=== PATIENT | male | born 1960 | race Caucasian/White ===

== ENCOUNTER 2016-04-24 07:12 | Inpatient (IN) | payer OTHER ==
[~2016-04-24] VITALS: Ht 177.8 cm; Wt 133.8 kg
[~2016-04-24 07:12] MED LIST: AMARYL4 MG PO; AMLODIPINE BESY10 MG PO; AMLODIPINE BESYL5 MG PO; ASPIRIN325 MG PO; AUGMENTIN875 MG PO; CALCIUM ACETAT667 MG PO; CARVEDILOL12.5 MG PO; CARVEDILOL25 MG PO; CEFDINIR300 MG PO; CLONAZEPAM0.5 MG PO; COREG25 M1 PO; DELTASONE20 M1 PO; DIALYVITE 3,001 EACH PO; EMLA 30 GM30 GM TP; FLEXERIL10 MG PO; GABAPENTIN100 MG PO; GABAPENTIN300 MG PO; GRALISE300 MG PO; HYCODAN SYRUP480 ML PO; HYDROCHLOR; INSULIN PUMP SCCONT; LANTUS 10100 UNITS/ SC; LASIX40 MG PO; LEVEMIR FL100 UNIT/1 SC; LEVEMIR FL100 UNITS/ SC; LEVEMIR100 UNIT/2 SC; LORTAB 5-325 M1 EACH PO; LOVASTATIN40 MG PO; LYRICA50 MG PO; MEDROL DOSEPAK4 MG PO; MEVACOR40 MG PO; NEURONTIN300 MG PO; NORCO 5/3251 TABLET PO; NORVASC5 MG PO; NOVOLOG PE100 UNITS/ SC; PREDNISONE20 MG PO; PRILOSEC OTC20 MG PO; PROAIR HFA8.5 GM IH; RENVELA800 MG PO; ROXICODONE5 MG PO; SENSIPAR30 MG PO; SENSIPAR60 MG PO; TRAMADOL HCL50 MG PO; TUMS500 MG PO; TYLENOL EXTRA500 MG PO; ULTRAM50 MG PO; VALSARTAN; VANCOMYCIN HCL1 GM IV; VIAGRA25 MG PO; VICODIN 5-3001 EACH PO; VITAMIN D10000 UNIT PO; ZOLOFT25 MG PO; ZOLOFT50 MG PO; [UNRECOGNIZED DRUG - OTHER] TP; quinapril; vytorin
[2016-04-24 08:17] LABS: HEMATOCRIT 32.6 % (38.0-50.0); MCHC 31.6 G/DL (30.0-36.0); MCV 91.8 FL (86-99); MEAN PLAT.VOLUME 9.9 uM^3 (9.0-12.4); PLATELET COUNT 536 K/uL (156-360); RBC DIS.WIDTH-CV 14.5 % (11.8-14.6); RBC DIS.WIDTH-SD 46.9 % (39-53); RED BLOOD COUNT 3.55 M/uL (4.00-5.50); WHITE BLOOD COUNT 21.8 K/uL (4.1-10.2)
[2016-04-24 08:18] LABS: BASOPHIL COUNT 0.1 K/uL (0-0.1); EOSINOPHIL (%) 1.7 % (0-5); EOSINOPHIL COUNT 0.4 K/uL (0-0.3); IMMATURE GRANULOCYTE (%) 0.4 % (0.0-0.7); IMMATURE GRANULOCYTE COUNT 0.8 K/uL; LYMPHOCYTE COUNT 1.4 K/uL (1.0-2.8); MONOCYTE COUNT 2.2 K/uL (0-0.8); NEUTROPHIL (%) 81.1 % (45-76); NEUTROPHIL COUNT 17.7 K/uL (1.8-6.4)
[2016-04-24 08:30] LABS: INTER. NORMALIZED RATIO 1.1; PROTHROMBIN TIME 11.3 (9.2-11.2); PTT 27.1 (25-32)
[2016-04-24 08:31] LABS: CHLORIDE 94 mEq/L (99-109); POTASSIUM 5.3 mEq/L (3.7-5.4); SODIUM 137 mEq/L (136-147)
[2016-04-24 08:33] LABS: GLUCOSE 143 mg/dL (70-99)
[2016-04-24 08:34] LABS: ANION GAP 17 MEQ/L (2-14)
[2016-04-24 08:35] LABS: TOTAL BILIRUBIN 0.3 mg/dL (0.0-1.0)
[2016-04-24 08:36] LABS: ALKALINE PHOSPHATASE 149 IU/L (3-129)
[2016-04-24 08:37] LABS: GFR ESTIMATE (CALCULATED) 6 mL/min/
[2016-04-24 08:38] LABS: UREA NITROGEN (BUN) 59 mg/dL (9-23)
[2016-04-24 08:40] LABS: LIPASE 94 U/L (1.0-51.0)
[2016-04-24 08:41] LABS: TROP-I INTERPRETATION NEGATIVE; TROPONIN-I 0.02 ng/mL (0.0-0.30)
[2016-04-24 08:59] LABS: HEMATOLOGY COMMENT 1 SMEAR COMPATIBLE; USER ID CCL
[2016-04-24] MEDS ORDERED: GABAPENTIN100 MG PO (11:23)
[2016-04-24] MEDS ORDERED: METHOCARBAMOL750 MG PO (11:26)
[2016-04-24] MEDS ORDERED: CALCITRIOL0.5 MCG PO (11:26)
[2016-04-24 17:51] VITALS: BP 185/83
[2016-04-24 18:02] LABS: POINT-OF-CARE METER ID UU14149396
[2016-04-24 19:50] VITALS: BP 175/73
[2016-04-24 21:51] LABS: POINT-OF-CARE METER ID UU14149398
[2016-04-25 00:20] VITALS: BP 130/60
[2016-04-25 01:46] LABS: POINT-OF-CARE METER ID UU14149398
[2016-04-25 03:55] VITALS: BP 184/77
[2016-04-25 05:52] LABS: POINT-OF-CARE METER ID UU14149398
[2016-04-25 06:47] LABS: BASOPHIL COUNT 0.1 K/uL (0-0.1); EOSINOPHIL (%) 3.6 % (0-5); EOSINOPHIL COUNT 0.4 K/uL (0-0.3); HEMATOCRIT 30.1 % (38.0-50.0); IMMATURE GRANULOCYTE (%) 0.3 % (0.0-0.7); LYMPHOCYTE COUNT 1.7 K/uL (1.0-2.8); MCHC 30.6 G/DL (30.0-36.0); MEAN PLAT.VOLUME 9.7 uM^3 (9.0-12.4); MONOCYTE (%) 17.8 % (3-12); MONOCYTE COUNT 2.1 K/uL (0-0.8); NEUTROPHIL (%) 63.3 % (45-76); NEUTROPHIL COUNT 7.3 K/uL (1.8-6.4); PLATELET COUNT 467 K/uL (156-360); RBC DIS.WIDTH-CV 14.9 % (11.8-14.6); RED BLOOD COUNT 3.17 M/uL (4.00-5.50); WHITE BLOOD COUNT 11.5 K/uL (4.1-10.2)
[2016-04-25 06:54] LABS: ANION GAP 13 MEQ/L (2-14); CHLORIDE 94 MEQ/L (99-109); SAMPLE HEMOLYSIS CHECK 0; SAMPLE ICTERIC CHECK 0; SAMPLE LIPEMIA CHECK 0; SODIUM 135 MEQ/L (136-147)
[2016-04-25 06:55] LABS: POTASSIUM 4.1 MEQ/L (3.7-5.4)
[2016-04-25 06:59] LABS: GFR ESTIMATE (CALCULATED) 8 mL/min/; GLUCOSE 210 mg/dL (70-99); UREA NITROGEN (BUN) 41 mg/dL (9-23)
[2016-04-25 07:03] LABS: TROP-I INTERPRETATION NEGATIVE; TROPONIN-I < 0.01 ng/mL (0.0-0.30)
[2016-04-25 13:00] VITALS: BP 178/78
[2016-04-25 13:27] LABS: POINT-OF-CARE METER ID UU14149396; POINT-OF-CARE USER ID 606021404
[2016-04-25 15:16] LABS: HEMATOCRIT 31.5 % (38.0-50.0); MCH 29.1 PG (29.0-34.0); MCHC 31.1 G/DL (30.0-36.0); MCV 93.5 FL (86-99); PLATELET COUNT 490 K/uL (156-360); RBC DIS.WIDTH-CV 14.7 % (11.8-14.6); RBC DIS.WIDTH-SD 50.2 % (39-53); RED BLOOD COUNT 3.37 M/uL (4.00-5.50); WHITE BLOOD COUNT 14.3 K/uL (4.1-10.2)
[2016-04-25 15:56] VITALS: BP 136/64
[2016-04-25 17:51] LABS: POINT-OF-CARE METER ID UU14149398; POINT-OF-CARE USER ID 606021404
[2016-04-25 19:40] VITALS: BP 118/58
[2016-04-25 21:21] LABS: POINT-OF-CARE METER ID UU14149398
[2016-04-25 23:25] VITALS: BP 114/55
[2016-04-26 02:32] LABS: POINT-OF-CARE METER ID UU14149398
[2016-04-26 03:35] VITALS: BP 108/52
[2016-04-26 06:01] LABS: HEMATOCRIT 31.9 % (38.0-50.0); MCH 28.1 PG (29.0-34.0); MCHC 30.1 G/DL (30.0-36.0); MCV 93.3 FL (86-99); MEAN PLAT.VOLUME 9.7 uM^3 (9.0-12.4); PLATELET COUNT 462 K/uL (156-360); RED BLOOD COUNT 3.42 M/uL (4.00-5.50); WHITE BLOOD COUNT 12.5 K/uL (4.1-10.2)
[2016-04-26 06:08] LABS: POINT-OF-CARE METER ID UU14149398
[2016-04-26 06:27] LABS: ALKALINE PHOSPHATASE 140 IU/L (3-129); ANION GAP 14 MEQ/L (2-14); CHLORIDE 94 MEQ/L (99-109); GFR ESTIMATE (CALCULATED) 9 mL/min/; GLUCOSE 135 mg/dL (70-99); POTASSIUM 4.5 MEQ/L (3.7-5.4); SAMPLE HEMOLYSIS CHECK 0; SAMPLE ICTERIC CHECK 0; SAMPLE LIPEMIA CHECK 0; SODIUM 137 MEQ/L (136-147); TOTAL BILIRUBIN 0.4 MG/DL (0.0-1.0); UREA NITROGEN (BUN) 34 mg/dL (9-23)
[2016-04-26 06:47] LABS: INFLUENZA A VIRAL ANTIGEN NEGATIVE; INFLUENZA B VIRAL ANTIGEN NEGATIVE
[2016-04-26 07:21] LABS: POINT-OF-CARE METER ID UU14149398
[2016-04-26 08:08] VITALS: BP 99/51
[2016-04-26 09:31] LABS: POINT-OF-CARE METER ID UU14149398
[2016-04-26 12:35] VITALS: BP 115/65
[2016-04-26 13:41] LABS: POINT-OF-CARE METER ID UU14149396
[2016-04-26 16:23] VITALS: BP 128/62
[2016-04-26 18:05] LABS: POINT-OF-CARE METER ID UU14149396
[2016-04-26 20:00] VITALS: BP 160/70
[2016-04-26 22:03] LABS: POINT-OF-CARE METER ID UU14149396
[2016-04-27] VITALS: BP 135/63
[2016-04-27 02:39] LABS: POINT-OF-CARE METER ID UU14149396
[2016-04-27 04:00] VITALS: BP 113/54
[2016-04-27 06:25] LABS: MCH 28.5 PG (29.0-34.0); MCHC 31.4 G/DL (30.0-36.0); MCV 90.9 FL (86-99); PLATELET COUNT 470 K/uL (156-360); RBC DIS.WIDTH-CV 14.6 % (11.8-14.6); RBC DIS.WIDTH-SD 47.2 % (39-53); RED BLOOD COUNT 3.19 M/uL (4.00-5.50); WHITE BLOOD COUNT 11.8 K/uL (4.1-10.2)
[2016-04-27 06:31] LABS: CHLORIDE 94 mEq/L (99-109); POTASSIUM 4.4 mEq/L (3.7-5.4); SODIUM 134 mEq/L (136-147)
[2016-04-27 06:33] LABS: GLUCOSE 139 mg/dL (70-99)
[2016-04-27 06:34] LABS: ANION GAP 18 MEQ/L (2-14)
[2016-04-27 06:35] LABS: TOTAL BILIRUBIN 0.3 mg/dL (0.0-1.0)
[2016-04-27 06:36] LABS: ALKALINE PHOSPHATASE 130 IU/L (3-129)
[2016-04-27 06:40] LABS: POINT-OF-CARE METER ID UU14149398
[2016-04-27 06:40] LABS: GFR ESTIMATE (CALCULATED) 6 mL/min/; UREA NITROGEN (BUN) 57 mg/dL (9-23)
[2016-04-27 13:17] VITALS: BP 167/72
[2016-04-27 13:26] LABS: POINT-OF-CARE METER ID UU14149398; POINT-OF-CARE USER ID 606021404
== END 2016-04-27 14:10 | disposition home or self-care (01) | DRG 640 ==
LOC: EME 07:12 → 4SOUTH 11:50 → EDOF 11:50 → 4SOUTH 17:37
PROVIDERS: Emergency Medicine; Internal Medicine
PROC: 5A1D60Z (ICD-10-PCS; principal; 2016-04-24)
DX: E87.70 Fluid overload, unspecified (principal); J81.0 Acute pulmonary edema; N18.6 End stage renal disease; I12.0 Hypertensive chronic kidney disease with stage 5 chronic kidney disease or end stage renal disease; Z68.41 Body mass index [BMI] 40.0-44.9, adult; E11.22 Type 2 diabetes mellitus with diabetic chronic kidney disease; G47.33 Obstructive sleep apnea (adult) (pediatric); E66.01 Morbid (severe) obesity due to excess calories; Z90.81 Acquired absence of spleen; E78.5 Hyperlipidemia, unspecified; Z96.41 Presence of insulin pump (external) (internal); E73.8 Other lactose intolerance; E83.51 Hypocalcemia; D63.1 Anemia in chronic kidney disease; R50.9 Fever, unspecified; Z99.2 Dependence on renal dialysis; Z79.4 Long term (current) use of insulin; Z90.09 Acquired absence of other part of head and neck; Z87.891 Personal history of nicotine dependence; Z83.3 Family history of diabetes mellitus
CPT/HCPCS: 71010; 71020; 80048; 80053; 81003; 82310; 82948; 83605; 83690; 83880; 84484; 85025; 85027; 85610; 85730; 87040; 87086; 87493; 87502; 93306; 94799; 99281; 99285; J1644; J1815; J2543; J3370; J7030

== ENCOUNTER 2016-05-04 06:25 | Inpatient (IN) | payer OTHER ==
[~2016-05-04] VITALS: Ht 177.8 cm; Wt 135.4 kg
[~2016-05-04 06:25] MED LIST changes: +CALCITRIOL0.5 MCG PO; +METHOCARBAMOL750 MG PO
[2016-05-04 07:54] LABS: HEMATOCRIT 28.1 % (38.0-50.0); MCH 27.8 PG (29.0-34.0); MCHC 30.6 G/DL (30.0-36.0); MCV 90.9 FL (86-99); MEAN PLAT.VOLUME 9.8 uM^3 (9.0-12.4); PLATELET COUNT 543 K/uL (156-360); RBC DIS.WIDTH-CV 14.5 % (11.8-14.6); RBC DIS.WIDTH-SD 46.2 % (39-53); RED BLOOD COUNT 3.09 M/uL (4.00-5.50)
[2016-05-04 07:58] LABS: WHITE BLOOD COUNT 16.1 K/uL (4.1-10.2)
[2016-05-04 08:09] LABS: CHLORIDE 91 mEq/L (99-109); POTASSIUM 4.5 mEq/L (3.7-5.4); SODIUM 133 mEq/L (136-147)
[2016-05-04 08:10] LABS: GLUCOSE 341 mg/dL (70-99)
[2016-05-04 08:12] LABS: ANION GAP 17 MEQ/L (2-14)
[2016-05-04 08:14] LABS: GFR ESTIMATE (CALCULATED) 5 mL/min/
[2016-05-04 08:15] LABS: UREA NITROGEN (BUN) 49 mg/dL (9-23)
[2016-05-04 08:16] LABS: TROP-I INTERPRETATION NEGATIVE; TROPONIN-I < 0.01 ng/mL (0.0-0.30)
[2016-05-04 10:36] VITALS: BP 136/69
[2016-05-04] MEDS ORDERED: CEFDINIR300 MG PO (11:51)
[2016-05-04 14:05] LABS: TROP-I INTERPRETATION NEGATIVE; TROPONIN-I < 0.01 ng/mL (0.0-0.30)
[2016-05-04 21:00] VITALS: BP 120/62
[2016-05-04 22:49] LABS: POINT-OF-CARE METER ID UU13113700
[2016-05-05 00:08] VITALS: BP 123/57
[2016-05-05 05:00] VITALS: BP 110/59
[2016-05-05 07:03] LABS: HEMATOCRIT 28.3 % (38.0-50.0); MCHC 30.4 G/DL (30.0-36.0); MCV 92.2 FL (86-99); MEAN PLAT.VOLUME 9.8 uM^3 (9.0-12.4); PLATELET COUNT 477 K/uL (156-360); RBC DIS.WIDTH-CV 15.1 % (11.8-14.6); RBC DIS.WIDTH-SD 50.9 % (39-53); RED BLOOD COUNT 3.07 M/uL (4.00-5.50); WHITE BLOOD COUNT 16.3 K/uL (4.1-10.2)
[2016-05-05 07:27] LABS: ALKALINE PHOSPHATASE 170 IU/L (3-129); ANION GAP 13 MEQ/L (2-14); CHLORIDE 96 MEQ/L (99-109); GFR ESTIMATE (CALCULATED) 8 mL/min/; GLUCOSE 99 mg/dL (70-99); SAMPLE HEMOLYSIS CHECK 0; SAMPLE ICTERIC CHECK 0; SAMPLE LIPEMIA CHECK 0; SODIUM 138 MEQ/L (136-147); TOTAL BILIRUBIN 0.4 MG/DL (0.0-1.0); UREA NITROGEN (BUN) 30 mg/dL (9-23)
[2016-05-05 08:45] VITALS: BP 138/65
[2016-05-05 08:55] LABS: POINT-OF-CARE METER ID UU13113831
[2016-05-05 12:35] VITALS: BP 112/57
[2016-05-05 12:41] LABS: POINT-OF-CARE METER ID UU13113831
[2016-05-05 17:45] LABS: POINT-OF-CARE METER ID UU13113831
[2016-05-05 18:36] VITALS: BP 108/55
[2016-05-05 22:10] LABS: POINT-OF-CARE METER ID UU13113717
[2016-05-05 23:45] VITALS: BP 91/52
[2016-05-06 04:03] VITALS: BP 92/53
[2016-05-06 08:09] LABS: HEMATOCRIT 27.4 % (38.0-50.0); MCH 27.7 PG (29.0-34.0); MCHC 30.3 G/DL (30.0-36.0); MCV 91.3 FL (86-99); MEAN PLAT.VOLUME 9.8 uM^3 (9.0-12.4); NRBC (%) 0.9 /100 WBC (0-0); PLATELET COUNT 487 K/uL (156-360); RBC DIS.WIDTH-CV 15.1 % (11.8-14.6); RBC DIS.WIDTH-SD 50.2 % (39-53); WHITE BLOOD COUNT 17.2 K/uL (4.1-10.2)
[2016-05-06 08:20] LABS: BASOPHIL COUNT 0.1 K/uL (0-0.1); EOSINOPHIL (%) 3.9 % (0-5); EOSINOPHIL COUNT 0.7 K/uL (0-0.3); IMMATURE GRANULOCYTE (%) 3.8 % (0.0-0.7); IMMATURE GRANULOCYTE COUNT 0.7 K/uL; LYMPHOCYTE COUNT 1.8 K/uL (1.0-2.8); MONOCYTE (%) 17.2 % (3-12); NEUTROPHIL (%) 63.9 % (45-76)
[2016-05-06 08:38] LABS: ANION GAP 15 MEQ/L (2-14); CHLORIDE 91 MEQ/L (99-109); GFR ESTIMATE (CALCULATED) 6 mL/min/; GLUCOSE 250 mg/dL (70-99); POTASSIUM 4.3 MEQ/L (3.7-5.4); SAMPLE HEMOLYSIS CHECK 0; SAMPLE ICTERIC CHECK 0; SAMPLE LIPEMIA CHECK 0; SODIUM 131 MEQ/L (136-147); UREA NITROGEN (BUN) 49 mg/dL (9-23)
[2016-05-06 08:39] LABS: HEMATOLOGY COMMENT 1 SMEAR COMPATIBLE; PLAT.SUFFICIENCY INCREASED
[2016-05-06 10:53] LABS: IRON 17 MCG/DL (35-150)
[2016-05-06 17:15] LABS: POINT-OF-CARE METER ID UU14149397
[2016-05-06 17:16] VITALS: BP 104/59
[2016-05-06 19:35] VITALS: BP 120/56
[2016-05-07] VITALS (7 sets, daily range): BP systolic 121–129; BP diastolic 59–66
[2016-05-07 13:46] LABS: GLUCOSE 632 mg/dL (70-99)
[2016-05-07 18:09] LABS: ANION GAP 18 MEQ/L (2-14); CHLORIDE 86 MEQ/L (99-109); GFR ESTIMATE (CALCULATED) 7 mL/min/; GLUCOSE 494 mg/dL (70-99); POTASSIUM 5.4 MEQ/L (3.7-5.4); SAMPLE HEMOLYSIS CHECK 0; SAMPLE ICTERIC CHECK 0; SAMPLE LIPEMIA CHECK 0; SODIUM 126 MEQ/L (136-147); UREA NITROGEN (BUN) 56 mg/dL (9-23)
[2016-05-07 19:19] LABS: POINT-OF-CARE METER ID UU14149397
[2016-05-08 03:12] LABS: POINT-OF-CARE METER ID UU14149397
[2016-05-08 04:08] VITALS: BP 116/58
[2016-05-08 06:01] LABS: MEAN PLAT.VOLUME 10.2 uM^3 (9.0-12.4); PLATELET COUNT 519 K/uL (156-360)
[2016-05-08 06:26] LABS: ALKALINE PHOSPHATASE 193 IU/L (3-129); ANION GAP 23 MEQ/L (2-14); CHLORIDE 87 MEQ/L (99-109); GFR ESTIMATE (CALCULATED) 6 mL/min/; GLUCOSE 288 mg/dL (70-99); POTASSIUM 5.6 MEQ/L (3.7-5.4); SAMPLE HEMOLYSIS CHECK 0; SAMPLE ICTERIC CHECK 0; SAMPLE LIPEMIA CHECK 0; SODIUM 132 MEQ/L (136-147); TOTAL BILIRUBIN 0.3 MG/DL (0.0-1.0); UREA NITROGEN (BUN) 69 mg/dL (9-23)
[2016-05-08 06:32] LABS: HEMATOCRIT 28.1 % (38.0-50.0); MCH 28.4 PG (29.0-34.0); MCHC 31.7 G/DL (30.0-36.0); MCV 89.8 FL (86-99); RBC DIS.WIDTH-CV 15.1 % (11.8-14.6); RBC DIS.WIDTH-SD 49.1 % (39-53); RED BLOOD COUNT 3.13 M/uL (4.00-5.50)
[2016-05-08 06:36] LABS: WHITE BLOOD COUNT 33.9 K/uL (4.1-10.2)
[2016-05-08 06:49] LABS: POINT-OF-CARE METER ID UU13113717
[2016-05-08 07:38] VITALS: BP 128/68
[2016-05-08 09:43] VITALS: BP 128/68
[2016-05-08 11:08] VITALS: BP 110/60
[2016-05-08 16:03] VITALS: BP 127/69
[2016-05-08 23:58] VITALS: BP 120/63
[2016-05-09] VITALS (7 sets, daily range): BP systolic 60–147; BP diastolic 42–76
[2016-05-09 03:19] LABS: POINT-OF-CARE METER ID UU14149397
[2016-05-09 06:46] LABS: POINT-OF-CARE METER ID UU13113717
[2016-05-09 08:07] LABS: MEAN PLAT.VOLUME 9.9 uM^3 (9.0-12.4); PLATELET COUNT 535 K/uL (156-360)
[2016-05-09 08:11] LABS: EOSINOPHIL (%) 0 % (0-5); HEMATOCRIT 28.5 % (38.0-50.0); IMMATURE GRANULOCYTE (%) 3.4 % (0.0-0.7); LYMPHOCYTE COUNT 2.7 K/uL (1.0-2.8); MCH 27.5 PG (29.0-34.0); MCHC 31.6 G/DL (30.0-36.0); MCV 87.2 FL (86-99); MONOCYTE (%) 10.4 % (3-12); NEUTROPHIL (%) 76.9 % (45-76); NEUTROPHIL COUNT 22.2 K/uL (1.8-6.4); RBC DIS.WIDTH-SD 47.3 % (39-53); RED BLOOD COUNT 3.27 M/uL (4.00-5.50); WHITE BLOOD COUNT 28.9 K/uL (4.1-10.2)
[2016-05-09 08:42] LABS: ALKALINE PHOSPHATASE 165 IU/L (3-129); ANION GAP 20 MEQ/L (2-14); CHLORIDE 87 MEQ/L (99-109); GLUCOSE 277 mg/dL (70-99); POTASSIUM 4.6 MEQ/L (3.7-5.4); SAMPLE HEMOLYSIS CHECK 0; SAMPLE ICTERIC CHECK 0; SAMPLE LIPEMIA CHECK 0; SODIUM 128 MEQ/L (136-147); UREA NITROGEN (BUN) 92 mg/dL (9-23)
[2016-05-09 08:43] LABS: GFR ESTIMATE (CALCULATED) 5 mL/min/; TOTAL BILIRUBIN 0.4 MG/DL (0.0-1.0)
[2016-05-09 08:51] LABS: ABS NEUTROPHIL COUNT 23.43; ANISOCYTOSIS OCC; MYELOCYTES 0.5 %; NUCLEATED RBC'S 2.5; PLAT.SUFFICIENCY INCREASED; USER ID SDF
[2016-05-09 10:25] LABS: POINT-OF-CARE METER ID UU13113717
[2016-05-09 10:31] LABS: POINT-OF-CARE METER ID UU13113717
[2016-05-09 13:33] LABS: POINT-OF-CARE METER ID UU13113717
[2016-05-09 16:26] LABS: POINT-OF-CARE METER ID UU14149397
[2016-05-09 17:16] LABS: ANION GAP 17 MEQ/L (2-14); CHLORIDE 94 MEQ/L (99-109); POTASSIUM 4.4 MEQ/L (3.7-5.4); SAMPLE HEMOLYSIS CHECK 0; SAMPLE ICTERIC CHECK 0; SAMPLE LIPEMIA CHECK 0
[2016-05-09 17:27] LABS: GFR ESTIMATE (CALCULATED) 9 mL/min/; GLUCOSE 128 mg/dL (70-99); UREA NITROGEN (BUN) 39 mg/dL (9-23)
[2016-05-09 17:28] LABS: SODIUM 136 MEQ/L (136-147)
[2016-05-09 18:15] LABS: TROP-I INTERPRETATION NEGATIVE; TROPONIN-I < 0.01 ng/mL (0.0-0.30)
[2016-05-10] VITALS (7 sets, daily range): BP systolic 90–137; BP diastolic 54–73
[2016-05-10 03:05] LABS: POINT-OF-CARE METER ID UU14149397
[2016-05-10 06:54] LABS: HEMATOCRIT 29.5 % (38.0-50.0); MCH 27.2 PG (29.0-34.0); MCHC 30.5 G/DL (30.0-36.0); MCV 89.1 FL (86-99); MEAN PLAT.VOLUME 10.2 uM^3 (9.0-12.4); PLATELET COUNT 511 K/uL (156-360); RBC DIS.WIDTH-CV 15.3 % (11.8-14.6); RBC DIS.WIDTH-SD 49.7 % (39-53); RED BLOOD COUNT 3.31 M/uL (4.00-5.50); WHITE BLOOD COUNT 28.1 K/uL (4.1-10.2)
[2016-05-10 08:38] LABS: INTERNAL CONTROL VALID? YES
[2016-05-10 08:45] LABS: ALKALINE PHOSPHATASE 162 IU/L (3-129); ANION GAP 16 MEQ/L (2-14); CHLORIDE 92 MEQ/L (99-109); POTASSIUM 4.7 MEQ/L (3.7-5.4); SAMPLE HEMOLYSIS CHECK 0; SAMPLE ICTERIC CHECK 0; SAMPLE LIPEMIA CHECK 0; SODIUM 132 MEQ/L (136-147)
[2016-05-10 08:49] LABS: GFR ESTIMATE (CALCULATED) 7 mL/min/; GLUCOSE 218 mg/dL (70-99); TOTAL BILIRUBIN 0.5 MG/DL (0.0-1.0); UREA NITROGEN (BUN) 61 mg/dL (9-23)
[2016-05-10 11:47] LABS: POINT-OF-CARE METER ID UU14149397
[2016-05-10 16:22] LABS: POINT-OF-CARE METER ID UU14149397
[2016-05-10 19:49] LABS: GLUCOSE 536 mg/dL (70-99)
[2016-05-11 03:42] VITALS: BP 98/56
[2016-05-11 06:11] LABS: HEMATOCRIT 26.1 % (38.0-50.0); MEAN PLAT.VOLUME 10.2 uM^3 (9.0-12.4); PLATELET COUNT 487 K/uL (156-360); RBC DIS.WIDTH-CV 15.4 % (11.8-14.6); RBC DIS.WIDTH-SD 48.9 % (39-53); WHITE BLOOD COUNT 23.4 K/uL (4.1-10.2)
[2016-05-11 06:23] LABS: POINT-OF-CARE METER ID UU14149397
[2016-05-11 06:47] LABS: ALKALINE PHOSPHATASE 147 IU/L (3-129); ANION GAP 19 MEQ/L (2-14); CHLORIDE 88 MEQ/L (99-109); GLUCOSE 318 mg/dL (70-99); POTASSIUM 4.6 MEQ/L (3.7-5.4); SAMPLE HEMOLYSIS CHECK 0; SAMPLE ICTERIC CHECK 0; SAMPLE LIPEMIA CHECK 0; SODIUM 127 MEQ/L (136-147); TOTAL BILIRUBIN 0.4 MG/DL (0.0-1.0); UREA NITROGEN (BUN) 86 mg/dL (9-23)
[2016-05-11 06:57] LABS: GFR ESTIMATE (CALCULATED) 5 mL/min/
[2016-05-11 08:08] VITALS: BP 102/60
[2016-05-11 09:13] LABS: POINT-OF-CARE METER ID UU13113681
[2016-05-11 09:18] LABS: MEAN PLAT.VOLUME 10.3 uM^3 (9.0-12.4)
[2016-05-11 09:51] LABS: POINT-OF-CARE METER ID UU13113717
[2016-05-11 10:04] LABS: POINT-OF-CARE METER ID UU13113717
[2016-05-11 10:09] LABS: ABS NEUTROPHIL COUNT 17.27; ANISOCYTOSIS 2+; BAND NEUTROPHILS 5.5 % (0-8.0); HEMATOCRIT 25.7 % (38.0-50.0); LYMPHOCYTES 6.5 % (15.0-45.0); MACROCYTES OCC; MCHC 32.3 G/DL (30.0-36.0); MCV 86.8 FL (86-99); METAMYELOCYTES 3.5 %; MYELOCYTES 0.5 %; PLAT.SUFFICIENCY INCREASED; PLATELET CLUMPS PRESENT; POLYCHROMASIA OCC; RBC DIS.WIDTH-CV 15.5 % (11.8-14.6); RBC DIS.WIDTH-SD 49.8 % (39-53); RED BLOOD COUNT 2.96 M/uL (4.00-5.50); USER ID STC
[2016-05-11 10:12] LABS: DELETE MACHINE DIFF? YES
[2016-05-11 10:15] LABS: POINT-OF-CARE METER ID UU13113717
[2016-05-11 16:22] VITALS: BP 108/52
[2016-05-11 16:53] LABS: POINT-OF-CARE METER ID UU13113717
[2016-05-12] MEDS ORDERED: RENVELA800 MG PO (13:57)
== END 2016-05-11 18:14 | disposition home health service (06) | DRG 314 ==
LOC: EME 06:25 → EDOF 08:41 → 5WEST 08:41 → EDOF 08:45 → 5WEST 10:28 → 3EAST 05-05 12:05 → 5WEST 05-05 12:05 → 3EAST 05-05 18:13
PROVIDERS: Hospitalist; Internal Medicine; Internal Medicine Endocrinology, Diabetes & Metabolism; Internal Medicine Nephrology
DX: I31.3 Pericardial effusion (noninflammatory) (principal); I13.2 Hypertensive heart and chronic kidney disease with heart failure and with stage 5 chronic kidney disease, or end stage renal disease; N18.6 End stage renal disease; I50.9 Heart failure, unspecified; J98.11 Atelectasis; I24.1 Dressler's syndrome; E87.1 Hypo-osmolality and hyponatremia; E86.1 Hypovolemia; E83.51 Hypocalcemia; Z99.2 Dependence on renal dialysis; R50.9 Fever, unspecified; D63.1 Anemia in chronic kidney disease; E11.65 Type 2 diabetes mellitus with hyperglycemia; E11.40 Type 2 diabetes mellitus with diabetic neuropathy, unspecified; G47.33 Obstructive sleep apnea (adult) (pediatric); G89.29 Other chronic pain; D72.829 Elevated white blood cell count, unspecified; E78.5 Hyperlipidemia, unspecified; E66.9 Obesity, unspecified; Z90.81 Acquired absence of spleen; Z86.718 Personal history of other venous thrombosis and embolism; Z87.891 Personal history of nicotine dependence; Z96.41 Presence of insulin pump (external) (internal)
CPT/HCPCS: 71020; 71250; 78582; 80048; 80048 91; 80053; 80069; 81003; 82272; 82948; 83540; 84100; 84443; 84466; 84484; 84999; 85025; 85027; 87040; 93005; 93308; 94640; 94799; 99202; 99281; 99284; A9540; A9567; G0378; J0610; J0696; J0881; J1644; J1815; J2270; J2405; J2930; J7030; J7050; J7512

== ENCOUNTER 2016-05-12 07:56 | Inpatient (IN) | payer OTHER ==
[~2016-05-12] VITALS: Ht 177.8 cm; Wt 135.4 kg
[2016-05-12 08:27] LABS: HEMATOCRIT 26.4 % (38.0-50.0); MCH 27.8 PG (29.0-34.0); MCHC 31.8 G/DL (30.0-36.0); MCV 87.4 FL (86-99); RBC DIS.WIDTH-CV 14.9 % (11.8-14.6); RBC DIS.WIDTH-SD 45.8 % (39-53); RED BLOOD COUNT 3.02 M/uL (4.00-5.50); WHITE BLOOD COUNT 19.5 K/uL (4.1-10.2)
[2016-05-12 08:37] LABS: INTER. NORMALIZED RATIO 1.3; PROTHROMBIN TIME 12.8 (9.2-11.2); PTT 28.9 (25-32)
[2016-05-12 08:39] LABS: CHLORIDE 96 mEq/L (99-109); POTASSIUM 4.6 mEq/L (3.7-5.4); SODIUM 134 mEq/L (136-147)
[2016-05-12 08:40] LABS: GLUCOSE 258 mg/dL (70-99)
[2016-05-12 08:42] LABS: ANION GAP 18 MEQ/L (2-14)
[2016-05-12 08:44] LABS: GFR ESTIMATE (CALCULATED) 7 mL/min/
[2016-05-12 08:45] LABS: UREA NITROGEN (BUN) 70 mg/dL (9-23)
[2016-05-12 08:48] LABS: TROP-I INTERPRETATION NEGATIVE; TROPONIN-I < 0.01 ng/mL (0.0-0.30)
[2016-05-12 09:31] LABS: ABS NEUTROPHIL COUNT 13.47; ANISOCYTOSIS 1+; BASOPHIL COUNT 0.1 K/uL (0-0.1); EOSINOPHIL (%) 0.6 % (0-5); EOSINOPHIL COUNT 0.1 K/uL (0-0.3); IMMATURE GRANULOCYTE (%) 5.2 % (0.0-0.7); IMMATURE GRANULOCYTE COUNT 10.2 K/uL; LYMPHOCYTE COUNT 2.6 K/uL (1.0-2.8); MACROCYTES 1+; MONOCYTE (%) 15.9 % (3-12); MONOCYTE COUNT 3.1 K/uL (0-0.8); NEUTROPHIL (%) 64.5 % (45-76); NEUTROPHIL COUNT 12.6 K/uL (1.8-6.4); PLAT.SUFFICIENCY INCREASED; PLATELET CLUMPS PRESENT - PLATELET COUNT APPEARS INCREASED; POLYCHROMASIA 1+
[2016-05-12 12:49] LABS: ERTH.SED.RATE 59 MM/HR (0-20)
[2016-05-12] MEDS ORDERED: RENVELA800 MG PO (13:57)
[2016-05-12 15:44] LABS: POINT-OF-CARE METER ID UU14100415
[2016-05-12 19:36] VITALS: BP 123/63
[2016-05-12 23:04] LABS: GLUCOSE 472 mg/dL (70-99)
[2016-05-13 00:12] VITALS: BP 116/68
[2016-05-13 03:25] VITALS: BP 155/94
[2016-05-13 08:01] LABS: HEMATOCRIT 28.8 % (38.0-50.0); MCH 27.7 PG (29.0-34.0); MCHC 31.6 G/DL (30.0-36.0); MCV 87.5 FL (86-99); MEAN PLAT.VOLUME 10.3 uM^3 (9.0-12.4); PLATELET COUNT 506 K/uL (156-360); RBC DIS.WIDTH-CV 15.5 % (11.8-14.6); RBC DIS.WIDTH-SD 49.6 % (39-53); RED BLOOD COUNT 3.29 M/uL (4.00-5.50); WHITE BLOOD COUNT 26.7 K/uL (4.1-10.2)
[2016-05-13 08:14] LABS: TROP-I INTERPRETATION NEGATIVE; TROPONIN-I < 0.01 ng/mL (0.0-0.30)
[2016-05-13 08:18] LABS: ALKALINE PHOSPHATASE 250 IU/L (3-129); ANION GAP 21 MEQ/L (2-14); CHLORIDE 89 MEQ/L (99-109); GFR ESTIMATE (CALCULATED) 6 mL/min/; GLUCOSE 509 mg/dL (70-99); POTASSIUM 5.8 MEQ/L (3.7-5.4); SAMPLE HEMOLYSIS CHECK 0; SAMPLE ICTERIC CHECK 0; SAMPLE LIPEMIA CHECK 0; SODIUM 127 MEQ/L (136-147); TOTAL BILIRUBIN 0.5 MG/DL (0.0-1.0); UREA NITROGEN (BUN) 95 mg/dL (9-23)
[2016-05-13 13:15] VITALS: BP 138/70
[2016-05-13 18:21] VITALS: BP 150/67
[2016-05-13 19:29] VITALS: BP 143/74
[2016-05-13 19:42] VITALS: BP 143/74
[2016-05-14] VITALS (8 sets, daily range): BP systolic 124–144; BP diastolic 57–97
[2016-05-14 07:03] LABS: HEMATOCRIT 29.1 % (38.0-50.0); MCH 27.2 PG (29.0-34.0); MCHC 31.3 G/DL (30.0-36.0); MCV 86.9 FL (86-99); MEAN PLAT.VOLUME 10.6 uM^3 (9.0-12.4); PLATELET COUNT 567 K/uL (156-360); RBC DIS.WIDTH-CV 15.2 % (11.8-14.6); RBC DIS.WIDTH-SD 47.9 % (39-53); RED BLOOD COUNT 3.35 M/uL (4.00-5.50); WHITE BLOOD COUNT 22.7 K/uL (4.1-10.2)
[2016-05-14 07:20] LABS: ALKALINE PHOSPHATASE 208 IU/L (3-129); ANION GAP 15 MEQ/L (2-14); CHLORIDE 93 MEQ/L (99-109); GLUCOSE 389 mg/dL (70-99); SAMPLE HEMOLYSIS CHECK 0; SAMPLE ICTERIC CHECK 0; SAMPLE LIPEMIA CHECK 0; SODIUM 133 MEQ/L (136-147); TOTAL BILIRUBIN 0.4 MG/DL (0.0-1.0); UREA NITROGEN (BUN) 66 mg/dL (9-23)
[2016-05-14 07:23] LABS: GFR ESTIMATE (CALCULATED) 9 mL/min/; POTASSIUM 6.3 MEQ/L (3.7-5.4)
[2016-05-14 13:59] LABS: ANION GAP 19 MEQ/L (2-14); CHLORIDE 90 MEQ/L (99-109); SAMPLE HEMOLYSIS CHECK 0; SAMPLE ICTERIC CHECK 0; SAMPLE LIPEMIA CHECK 0; SODIUM 130 MEQ/L (136-147)
[2016-05-14 14:06] LABS: GFR ESTIMATE (CALCULATED) 8 mL/min/; UREA NITROGEN (BUN) 75 mg/dL (9-23)
[2016-05-14 14:07] LABS: GLUCOSE 475 mg/dL (70-99); POTASSIUM 4.8 MEQ/L (3.7-5.4)
[2016-05-15 05:00] VITALS: BP 133/66
[2016-05-15 07:02] LABS: HEMATOCRIT 28.1 % (38.0-50.0); MCH 27.4 PG (29.0-34.0); MCV 85.7 FL (86-99); MEAN PLAT.VOLUME 10.5 uM^3 (9.0-12.4); PLATELET COUNT 570 K/uL (156-360); RBC DIS.WIDTH-CV 15.3 % (11.8-14.6); RBC DIS.WIDTH-SD 47.7 % (39-53); RED BLOOD COUNT 3.28 M/uL (4.00-5.50); WHITE BLOOD COUNT 21.3 K/uL (4.1-10.2)
[2016-05-15 07:30] VITALS: BP 128/58
[2016-05-15 07:37] LABS: ALKALINE PHOSPHATASE 169 IU/L (3-129); ANION GAP 17 MEQ/L (2-14); CHLORIDE 90 MEQ/L (99-109); SAMPLE HEMOLYSIS CHECK 0; SAMPLE ICTERIC CHECK 0; SAMPLE LIPEMIA CHECK 0; SODIUM 130 MEQ/L (136-147); TOTAL BILIRUBIN 0.4 MG/DL (0.0-1.0); UREA NITROGEN (BUN) 98 mg/dL (9-23)
[2016-05-15 07:38] LABS: GFR ESTIMATE (CALCULATED) 7 mL/min/; GLUCOSE 421 mg/dL (70-99)
[2016-05-15 10:10] LABS: POINT-OF-CARE METER ID UU13113698
[2016-05-15 10:10] LABS: POINT-OF-CARE METER ID UU13113698
[2016-05-15 10:10] LABS: POINT-OF-CARE METER ID UU13113698
[2016-05-15 10:16] LABS: POINT-OF-CARE METER ID UU13113698
[2016-05-15 11:30] VITALS: BP 143/73
[2016-05-15 16:06] LABS: INTER. NORMALIZED RATIO 1.2; PROTHROMBIN TIME 12.2 (9.2-11.2)
[2016-05-15 19:45] VITALS: BP 144/69
[2016-05-15 23:06] VITALS: BP 147/73
[2016-05-16 04:35] VITALS: BP 132/73
[2016-05-16 08:02] LABS: POINT-OF-CARE METER ID UU14174216; POINT-OF-CARE USER ID ENVKC36
[2016-05-16 08:09] VITALS: BP 126/65
[2016-05-16 09:30] LABS: POINT-OF-CARE METER ID UU13113698
[2016-05-16 09:32] LABS: POINT-OF-CARE METER ID UU13113698
[2016-05-16 10:28] LABS: MEAN PLAT.VOLUME 10.5 uM^3 (9.0-12.4); PLATELET COUNT 647 K/uL (156-360)
[2016-05-16 10:35] LABS: INTER. NORMALIZED RATIO 1.3; PROTHROMBIN TIME 13.8 (9.2-11.2)
[2016-05-16 11:25] LABS: HEMATOCRIT 29.8 % (38.0-50.0); MCH 27.2 PG (29.0-34.0); MCHC 32.2 G/DL (30.0-36.0); MCV 84.4 FL (86-99); RBC DIS.WIDTH-CV 15.1 % (11.8-14.6); RBC DIS.WIDTH-SD 46.3 % (39-53); RED BLOOD COUNT 3.53 M/uL (4.00-5.50); WHITE BLOOD COUNT 21.8 K/uL (4.1-10.2)
[2016-05-16 11:32] LABS: ALKALINE PHOSPHATASE 148 IU/L (3-129); ANION GAP 19 MEQ/L (2-14); CHLORIDE 90 MEQ/L (99-109); GFR ESTIMATE (CALCULATED) 6 mL/min/; GLUCOSE 320 mg/dL (70-99); POTASSIUM 5.9 MEQ/L (3.7-5.4); SAMPLE HEMOLYSIS CHECK 0; SAMPLE ICTERIC CHECK 0; SAMPLE LIPEMIA CHECK 0; SODIUM 128 MEQ/L (136-147); TOTAL BILIRUBIN 0.4 MG/DL (0.0-1.0)
[2016-05-16 11:34] LABS: UREA NITROGEN (BUN) 122 mg/dL (9-23)
[2016-05-16 12:50] LABS: ANISOCYTOSIS 1+; BURR CELLS 1+; EOSINOPHIL ABS CT 0.22; MACROCYTES OCC; PLAT.SUFFICIENCY INCREASED; USER ID CCL
[2016-05-16 14:18] LABS: POINT-OF-CARE METER ID UU13113681; POINT-OF-CARE USER ID DROKMM72
[2016-05-16 14:39] LABS: DELETE MACHINE DIFF? YES
[2016-05-16 16:07] VITALS: BP 146/57
[2016-05-16 16:25] LABS: POINT-OF-CARE METER ID UU14174216; POINT-OF-CARE USER ID ENVKC36
[2016-05-16 19:36] VITALS: BP 149/70
[2016-05-16 23:00] VITALS: BP 152/81
[2016-05-17 04:45] VITALS: BP 140/48
[2016-05-17 07:02] LABS: HEMATOCRIT 31.5 % (38.0-50.0); MCH 26.7 PG (29.0-34.0); MCHC 31.1 G/DL (30.0-36.0); MCV 85.8 FL (86-99); MEAN PLAT.VOLUME 10.2 uM^3 (9.0-12.4); PLATELET COUNT 596 K/uL (156-360); RBC DIS.WIDTH-CV 15.2 % (11.8-14.6); RBC DIS.WIDTH-SD 47.4 % (39-53); RED BLOOD COUNT 3.67 M/uL (4.00-5.50); WHITE BLOOD COUNT 20.2 K/uL (4.1-10.2)
[2016-05-17 07:14] LABS: INTER. NORMALIZED RATIO 1.2; PROTHROMBIN TIME 12.6 (9.2-11.2)
[2016-05-17 07:34] LABS: ALKALINE PHOSPHATASE 152 IU/L (3-129); ANION GAP 14 MEQ/L (2-14); CHLORIDE 92 MEQ/L (99-109); GFR ESTIMATE (CALCULATED) 8 mL/min/; GLUCOSE 395 mg/dL (70-99); POTASSIUM 5.4 MEQ/L (3.7-5.4); SAMPLE HEMOLYSIS CHECK 0; SAMPLE ICTERIC CHECK 0; SAMPLE LIPEMIA CHECK 0; SODIUM 131 MEQ/L (136-147); TOTAL BILIRUBIN 0.4 MG/DL (0.0-1.0); UREA NITROGEN (BUN) 84 mg/dL (9-23)
[2016-05-17 07:41] VITALS: BP 145/74
[2016-05-17] MEDS ORDERED: PREDNISONE10 MG PO (08:40)
[2016-05-17] MEDS ORDERED: COLCRYS0.6 MG PO (08:42)
[2016-05-17 10:54] LABS: POINT-OF-CARE METER ID UU14174216
== END 2016-05-17 10:09 | disposition home or self-care (01) | DRG 252 ==
LOC: EME 07:56 → EDOF 11:45 → 4EAST 11:45 → EDOF 11:45 → 4EAST 19:00
PROVIDERS: Emergency Medicine; Internal Medicine; Internal Medicine Nephrology
PROC: 5A1D60Z (ICD-10-PCS; principal; 2016-05-13)
PROC: B31J1ZZ Fluoroscopy of Left Upper Extremity Arteries using Low Osmolar Contrast (ICD-10-PCS; 2016-05-16)
PROC: 037Y3ZZ Dilation of Upper Artery, Percutaneous Approach (ICD-10-PCS; 2016-05-16)
DX: I30.9 Acute pericarditis, unspecified (principal); N18.6 End stage renal disease; I12.0 Hypertensive chronic kidney disease with stage 5 chronic kidney disease or end stage renal disease; T82.858A Stenosis of other vascular prosthetic devices, implants and grafts, initial encounter; I48.1 Persistent atrial fibrillation; Z68.41 Body mass index [BMI] 40.0-44.9, adult; E87.5 Hyperkalemia; R06.02 Shortness of breath; E83.51 Hypocalcemia; G47.33 Obstructive sleep apnea (adult) (pediatric); E11.65 Type 2 diabetes mellitus with hyperglycemia; E11.22 Type 2 diabetes mellitus with diabetic chronic kidney disease; E78.5 Hyperlipidemia, unspecified; I27.2 Other secondary pulmonary hypertension; G40.909 Epilepsy, unspecified, not intractable, without status epilepticus; F32.9 Major depressive disorder, single episode, unspecified; E66.9 Obesity, unspecified; Z99.2 Dependence on renal dialysis; Z96.41 Presence of insulin pump (external) (internal); Z79.4 Long term (current) use of insulin; Z87.891 Personal history of nicotine dependence; Z86.718 Personal history of other venous thrombosis and embolism; Z90.81 Acquired absence of spleen; I25.2 Old myocardial infarction
CPT/HCPCS: 71010; 71250; 80048; 80048 91; 80053; 82948; 84484; 84999; 85025; 85027; 85610; 85651; 85730; 93005; 93308; 93990; 94799; 99281; 99285; C1725; C1769; C1894; J0636; J1644; J1815; J1885; J2250; J2270; J2920; J2930; J3010; J7050; J7512

== ENCOUNTER 2016-05-18 22:20 | Inpatient (IN) | payer OTHER ==
[~2016-05-18] VITALS: Ht 177.8 cm; Wt 134.4 kg
[~2016-05-18 22:20] MED LIST changes: +COLCRYS0.6 MG PO; +PREDNISONE10 MG PO
[2016-05-18 22:44] VITALS: BP 171/138
[2016-05-18 22:48] LABS: HEMATOCRIT 29.8 % (38.0-50.0); MCH 27.5 PG (29.0-34.0); MCHC 32.2 G/DL (30.0-36.0); MCV 85.4 FL (86-99); MEAN PLAT.VOLUME 10.3 uM^3 (9.0-12.4); PLATELET COUNT 589 K/uL (156-360); RBC DIS.WIDTH-CV 15.3 % (11.8-14.6); RBC DIS.WIDTH-SD 46.3 % (39-53); RED BLOOD COUNT 3.49 M/uL (4.00-5.50); WHITE BLOOD COUNT 19.1 K/uL (4.1-10.2)
[2016-05-18 23:02] LABS: INTER. NORMALIZED RATIO 1.2; PROTHROMBIN TIME 11.8 (9.2-11.2); PTT 26.7 (25-32)
[2016-05-18 23:06] LABS: CHLORIDE 91 mEq/L (99-109)
[2016-05-18 23:07] LABS: SODIUM 132 mEq/L (136-147); TROP-I INTERPRETATION NEGATIVE; TROPONIN-I < 0.01 ng/mL (0.0-0.30)
[2016-05-18 23:08] LABS: POTASSIUM 4.3 mEq/L (3.7-5.4)
[2016-05-18 23:10] LABS: ANION GAP 17 MEQ/L (2-14)
[2016-05-18 23:12] LABS: GFR ESTIMATE (CALCULATED) 11 mL/min/
[2016-05-18 23:13] LABS: UREA NITROGEN (BUN) 65 mg/dL (9-23)
[2016-05-18 23:17] LABS: GLUCOSE 707 mg/dL (70-99)
[2016-05-19] VITALS (9 sets, daily range): BP systolic 101–179; BP diastolic 55–95
[2016-05-19] MEDS ORDERED: PREDNISONE10 MG PO (00:39)
[2016-05-19] MEDS ORDERED: AMLODIPINE BESYL5 MG PO (00:41)
[2016-05-19 00:53] LABS: POINT-OF-CARE METER ID UU14100415
[2016-05-19 05:19] LABS: HEMATOCRIT 30.5 % (38.0-50.0); MCH 27.6 PG (29.0-34.0); MCHC 31.8 G/DL (30.0-36.0); MCV 86.9 FL (86-99); MEAN PLAT.VOLUME 10.5 uM^3 (9.0-12.4); PLATELET COUNT 580 K/uL (156-360); RBC DIS.WIDTH-CV 15.4 % (11.8-14.6); RBC DIS.WIDTH-SD 48.3 % (39-53); RED BLOOD COUNT 3.51 M/uL (4.00-5.50); WHITE BLOOD COUNT 19.4 K/uL (4.1-10.2)
[2016-05-19 05:41] LABS: TROP-I INTERPRETATION NEGATIVE; TROPONIN-I < 0.01 ng/mL (0.0-0.30)
[2016-05-19 05:46] LABS: CHLORIDE 93 MEQ/L (99-109); GFR ESTIMATE (CALCULATED) 11 mL/min/; POTASSIUM 4.2 MEQ/L (3.7-5.4); SODIUM 134 MEQ/L (136-147); UREA NITROGEN (BUN) 70 mg/dL (9-23)
[2016-05-19 05:50] LABS: GLUCOSE 205 mg/dL (70-99)
[2016-05-19 05:54] LABS: ALKALINE PHOSPHATASE 121 IU/L (3-129); ANION GAP 13 MEQ/L (2-14); SAMPLE HEMOLYSIS CHECK 0; SAMPLE ICTERIC CHECK 0; SAMPLE LIPEMIA CHECK 0
[2016-05-19 05:58] LABS: TOTAL BILIRUBIN 0.5 MG/DL (0.0-1.0)
[2016-05-19 07:36] LABS: POINT-OF-CARE METER ID UU13113698
[2016-05-19 11:26] LABS: TROP-I INTERPRETATION NEGATIVE; TROPONIN-I 0.01 ng/mL (0.0-0.30)
[2016-05-19 11:39] LABS: POINT-OF-CARE METER ID UU13113698
[2016-05-19 16:11] LABS: POINT-OF-CARE METER ID UU13113698
[2016-05-20 03:04] LABS: POINT-OF-CARE METER ID UU13113698
[2016-05-20 04:00] VITALS: BP 147/69
[2016-05-20 07:13] VITALS: BP 138/76
[2016-05-20 08:50] LABS: HEMATOCRIT 29.1 % (38.0-50.0); MCH 27.4 PG (29.0-34.0); MCV 85.8 FL (86-99); MEAN PLAT.VOLUME 10.5 uM^3 (9.0-12.4); PLATELET COUNT 603 K/uL (156-360); RBC DIS.WIDTH-CV 15.8 % (11.8-14.6); RBC DIS.WIDTH-SD 49.1 % (39-53); RED BLOOD COUNT 3.39 M/uL (4.00-5.50); WHITE BLOOD COUNT 16.1 K/uL (4.1-10.2)
[2016-05-20 09:22] LABS: ALKALINE PHOSPHATASE 112 IU/L (3-129); ANION GAP 17 MEQ/L (2-14); CHLORIDE 92 MEQ/L (99-109); GFR ESTIMATE (CALCULATED) 8 mL/min/; GLUCOSE 147 mg/dL (70-99); POTASSIUM 3.7 MEQ/L (3.7-5.4); SAMPLE HEMOLYSIS CHECK 0; SAMPLE ICTERIC CHECK 0; SAMPLE LIPEMIA CHECK 0; SODIUM 133 MEQ/L (136-147); TOTAL BILIRUBIN 0.3 MG/DL (0.0-1.0); UREA NITROGEN (BUN) 80 mg/dL (9-23)
[2016-05-20 13:30] VITALS: BP 175/79
[2016-05-20 14:05] LABS: POINT-OF-CARE METER ID UU14174216; POINT-OF-CARE USER ID NUTSLF44
[2016-05-20] MEDS ORDERED: OYSTER SHELL 51 EACH PO (14:47)
[2016-05-20] MEDS ORDERED: CORDARONE200 MG PO (14:47)
[2016-05-20] MEDS ORDERED: DILTIAZEM 24HR180 MG PO (14:48)
[2016-05-20] MEDS ORDERED: NORCO 5/3251 TABLET PO (15:35)
[2016-05-20 16:11] LABS: POINT-OF-CARE METER ID UU13113698; POINT-OF-CARE USER ID NUTSLF44
[2016-05-21 21:32] LABS: POINT-OF-CARE METER ID UU14174216; POINT-OF-CARE USER ID NUTSLF44
== END 2016-05-20 15:45 | disposition home or self-care (01) | DRG 308 ==
LOC: EME 22:20 → EDOF 05-19 00:49 → 4EAST 05-19 00:49
PROVIDERS: Emergency Medicine; Internal Medicine; Internal Medicine Nephrology
PROC: 5A1D00Z (ICD-10-PCS; principal; 2016-05-20)
DX: I48.0 Paroxysmal atrial fibrillation (principal); N18.6 End stage renal disease; Z68.41 Body mass index [BMI] 40.0-44.9, adult; I31.9 Disease of pericardium, unspecified; I12.0 Hypertensive chronic kidney disease with stage 5 chronic kidney disease or end stage renal disease; E11.65 Type 2 diabetes mellitus with hyperglycemia; Z99.2 Dependence on renal dialysis; E66.01 Morbid (severe) obesity due to excess calories; E78.2 Mixed hyperlipidemia; G47.33 Obstructive sleep apnea (adult) (pediatric); Z87.891 Personal history of nicotine dependence; E11.22 Type 2 diabetes mellitus with diabetic chronic kidney disease; E11.40 Type 2 diabetes mellitus with diabetic neuropathy, unspecified; I48.92 Unspecified atrial flutter; Z90.81 Acquired absence of spleen; E83.51 Hypocalcemia; E89.2 Postprocedural hypoparathyroidism
CPT/HCPCS: 71010; 80048; 80053; 82948; 84484; 84999; 85027; 85610; 85730; 93005; 99281; 99284; J1170; J1644; J7512; S0028

== ENCOUNTER 2016-05-29 07:42 | Inpatient (IN) | payer OTHER ==
[~2016-05-29] VITALS: Ht 177.8 cm; Wt 141.3 kg
[~2016-05-29 07:42] MED LIST changes: +CORDARONE200 MG PO; +DILTIAZEM 24HR180 MG PO; +OYSTER SHELL 51 EACH PO
[2016-05-29 08:32] LABS: HEMATOCRIT 28.9 % (38.0-50.0); MCH 27.4 PG (29.0-34.0); MCHC 30.8 G/DL (30.0-36.0); MCV 88.9 FL (86-99); RBC DIS.WIDTH-CV 16.4 % (11.8-14.6); RBC DIS.WIDTH-SD 51.5 % (39-53); RED BLOOD COUNT 3.25 M/uL (4.00-5.50); WHITE BLOOD COUNT 14.5 K/uL (4.1-10.2)
[2016-05-29 08:42] LABS: CHLORIDE 95 mEq/L (99-109); POTASSIUM 4.2 mEq/L (3.7-5.4); SODIUM 136 mEq/L (136-147)
[2016-05-29 08:44] LABS: GLUCOSE 318 mg/dL (70-99)
[2016-05-29 08:45] LABS: ANION GAP 16 MEQ/L (2-14)
[2016-05-29 08:48] LABS: GFR ESTIMATE (CALCULATED) 7 mL/min/; UREA NITROGEN (BUN) 50 mg/dL (9-23)
[2016-05-29 11:07] LABS: BASOPHIL COUNT 0.1 K/uL (0-0.1); EOSINOPHIL (%) 4.2 % (0-5); EOSINOPHIL COUNT 0.6 K/uL (0-0.3); IMMATURE GRANULOCYTE (%) 0.3 % (0.0-0.7); IMMATURE GRANULOCYTE COUNT 0.4 K/uL; LYMPHOCYTE COUNT 1.2 K/uL (1.0-2.8); MONOCYTE (%) 9.2 % (3-12); MONOCYTE COUNT 1.3 K/uL (0-0.8); NEUTROPHIL (%) 77.3 % (45-76); NEUTROPHIL COUNT 11.2 K/uL (1.8-6.4)
[2016-05-29 13:01] LABS: INFLUENZA A VIRAL ANTIGEN POSITIVE; INFLUENZA B VIRAL ANTIGEN NEGATIVE
[2016-05-29 14:28] LABS: MEAN PLAT.VOLUME ND uM^3 (9.0-12.4); PLATELET COUNT ND K/uL (156-360)
[2016-05-29] MEDS ORDERED: AMIODARONE HCL200 MG PO (15:42)
[2016-05-29 19:40] VITALS: BP 145/67
[2016-05-30 00:20] VITALS: BP 140/70
[2016-05-30 04:31] VITALS: BP 135/7
[2016-05-30 08:09] LABS: ALKALINE PHOSPHATASE 83 IU/L (3-129); ANION GAP 11 MEQ/L (2-14); CHLORIDE 92 MEQ/L (99-109); GFR ESTIMATE (CALCULATED) 9 mL/min/; GLUCOSE 182 mg/dL (70-99); POTASSIUM 3.9 MEQ/L (3.7-5.4); SAMPLE HEMOLYSIS CHECK 0; SAMPLE ICTERIC CHECK 0; SAMPLE LIPEMIA CHECK 0; SODIUM 135 MEQ/L (136-147); TOTAL BILIRUBIN 0.4 MG/DL (0.0-1.0); UREA NITROGEN (BUN) 32 mg/dL (9-23)
[2016-05-30 08:18] LABS: BASOPHIL COUNT 0.1 K/uL (0-0.1); EOSINOPHIL (%) 5.2 % (0-5); EOSINOPHIL COUNT 0.3 K/uL (0-0.3); HEMATOCRIT 27.7 % (38.0-50.0); IMMATURE GRANULOCYTE (%) 0.2 % (0.0-0.7); LYMPHOCYTE COUNT 1.8 K/uL (1.0-2.8); MCH 27.2 PG (29.0-34.0); MCHC 30.3 G/DL (30.0-36.0); MCV 89.6 FL (86-99); MONOCYTE COUNT 0.7 K/uL (0-0.8); NEUTROPHIL (%) 54.8 % (45-76); NEUTROPHIL COUNT 3.6 K/uL (1.8-6.4); RBC DIS.WIDTH-CV 16.6 % (11.8-14.6); RBC DIS.WIDTH-SD 53.3 % (39-53); RED BLOOD COUNT 3.09 M/uL (4.00-5.50)
[2016-05-30 08:19] LABS: WHITE BLOOD COUNT 6.5 K/uL (4.1-10.2)
[2016-05-30 09:04] LABS: PLATELET COUNT UNABLE TO REPORT K/uL (156-360); USER ID TLW
[2016-05-30 17:10] VITALS: BP 120/60
[2016-05-30 19:53] VITALS: BP 156/68
[2016-05-30 23:35] VITALS: BP 132/75
[2016-05-31 07:18] LABS: HEMATOCRIT 27.9 % (38.0-50.0); MCH 27.4 PG (29.0-34.0); MCHC 31.2 G/DL (30.0-36.0); MCV 87.7 FL (86-99); RBC DIS.WIDTH-CV 16.3 % (11.8-14.6); RBC DIS.WIDTH-SD 52.5 % (39-53); RED BLOOD COUNT 3.18 M/uL (4.00-5.50)
[2016-05-31 07:30] LABS: ALKALINE PHOSPHATASE 73 IU/L (3-129); ANION GAP 12 MEQ/L (2-14); CHLORIDE 96 MEQ/L (99-109); GFR ESTIMATE (CALCULATED) 11 mL/min/; GLUCOSE 97 mg/dL (70-99); POTASSIUM 4.1 MEQ/L (3.7-5.4); SAMPLE HEMOLYSIS CHECK 0; SAMPLE ICTERIC CHECK 0; SAMPLE LIPEMIA CHECK 0; SODIUM 137 MEQ/L (136-147); TOTAL BILIRUBIN 0.3 MG/DL (0.0-1.0); UREA NITROGEN (BUN) 26 mg/dL (9-23)
[2016-05-31 08:00] VITALS: BP 111/55
[2016-05-31 08:05] LABS: HEMATOLOGY COMMENT 1 SMEAR COMPATIBLE; USER ID CCL
[2016-05-31 08:07] LABS: BASOPHIL COUNT 0.1 K/uL (0-0.1); EOSINOPHIL (%) 6.8 % (0-5); EOSINOPHIL COUNT 0.3 K/uL (0-0.3); IMMATURE GRANULOCYTE (%) 0.4 % (0.0-0.7); LYMPHOCYTE COUNT 1.2 K/uL (1.0-2.8); MEAN PLAT.VOLUME 10.3 uM^3 (9.0-12.4); MONOCYTE (%) 43.9 % (3-12); MONOCYTE COUNT 2.2 K/uL (0-0.8); NEUTROPHIL (%) 23.4 % (45-76); NEUTROPHIL COUNT 1.2 K/uL (1.8-6.4); PLAT.SUFFICIENCY ADEQUATE; PLATELET COUNT 258 K/uL (156-360)
[2016-05-31 08:22] VITALS: BP 138/65
[2016-05-31] MEDS ORDERED: AZITHROMYCIN500 M1 PO (09:34)
[2016-05-31] MEDS ORDERED: TAMIFLU6 MG/1 ML PO (09:34)
== END 2016-05-31 10:57 | disposition home or self-care (01) | DRG 193 ==
LOC: EME 07:42 → 5EAST 12:02 → EDOF 12:02 → 5EAST 18:46
PROVIDERS: Emergency Medicine; Internal Medicine
PROC: 5A1D60Z (ICD-10-PCS; principal; 2016-05-29)
DX: J10.1 Influenza due to other identified influenza virus with other respiratory manifestations (principal); N18.6 End stage renal disease; I12.0 Hypertensive chronic kidney disease with stage 5 chronic kidney disease or end stage renal disease; Z91.19 Patient's noncompliance with other medical treatment and regimen; I48.91 Unspecified atrial fibrillation; Z99.2 Dependence on renal dialysis; E78.5 Hyperlipidemia, unspecified; G47.33 Obstructive sleep apnea (adult) (pediatric); E11.22 Type 2 diabetes mellitus with diabetic chronic kidney disease; Z90.81 Acquired absence of spleen; Z87.891 Personal history of nicotine dependence; E66.9 Obesity, unspecified; E87.70 Fluid overload, unspecified
CPT/HCPCS: 71020; 71250; 80048; 80053; 81003; 82948; 83605; 85025; 87040; 87502; 94640; 94640 76; 94799; 99202; 99281; 99285; J0881; J1815

== ENCOUNTER 2016-06-15 16:43 | Observation (INO) | payer OTHER ==
[~2016-06-15] VITALS: Ht 177.8 cm; Wt 128.4 kg
[~2016-06-15 16:43] MED LIST changes: +AMIODARONE HCL200 MG PO; +AZITHROMYCIN500 M1 PO; +TAMIFLU6 MG/1 ML PO
[2016-06-15 17:51] LABS: CHLORIDE 91 mEq/L (99-109); POTASSIUM 4.3 mEq/L (3.7-5.4); SODIUM 136 mEq/L (136-147)
[2016-06-15 17:53] LABS: GLUCOSE 210 mg/dL (70-99)
[2016-06-15 17:54] LABS: ANION GAP 14 MEQ/L (2-14)
[2016-06-15 17:57] LABS: GFR ESTIMATE (CALCULATED) 10 mL/min/
[2016-06-15 17:58] LABS: HEMATOCRIT 35.6 % (38.0-50.0); MCH 26.9 PG (29.0-34.0); MCHC 30.3 G/DL (30.0-36.0); MCV 88.6 FL (86-99); MEAN PLAT.VOLUME 9.9 uM^3 (9.0-12.4); RBC DIS.WIDTH-CV 18.1 % (11.8-14.6); RBC DIS.WIDTH-SD 55.8 % (39-53); UREA NITROGEN (BUN) 28 mg/dL (9-23)
[2016-06-15 18:03] LABS: TROP-I INTERPRETATION NEGATIVE; TROPONIN-I < 0.01 ng/mL (0.0-0.30)
[2016-06-15 18:09] LABS: NRBC (%) 0.2 /100 WBC (0-0); PLATELET COUNT 507 K/uL (156-360); RED BLOOD COUNT 4.02 M/uL (4.00-5.50); WHITE BLOOD COUNT 15.6 K/uL (4.1-10.2)
[2016-06-15 18:34] LABS: ANISOCYTOSIS 1+; BASOPHIL COUNT 0.2 K/uL (0-0.1); EOSINOPHIL (%) 1.2 % (0-5); EOSINOPHIL COUNT 0.2 K/uL (0-0.3); IMMATURE GRANULOCYTE (%) 1.2 % (0.0-0.7); IMMATURE GRANULOCYTE COUNT 1.9 K/uL; LYMPHOCYTE COUNT 2.2 K/uL (1.0-2.8); MACROCYTES 1+; MICROCYTOSIS 1+; MONOCYTE (%) 17.6 % (3-12); MONOCYTE COUNT 2.7 K/uL (0-0.8); NEUTROPHIL (%) 64.7 % (45-76); NEUTROPHIL COUNT 10.1 K/uL (1.8-6.4); PLAT.SUFFICIENCY INCREASED; POLYCHROMASIA OCC; USER ID VLB
[2016-06-15] MEDS ORDERED: DILTIAZEM 24HR180 MG PO (21:46)
[2016-06-15] MEDS ORDERED: PROAIR HFA8.5 GM IH (21:50)
[2016-06-15] MEDS ORDERED: COLCRYS0.6 MG PO (21:50)
[2016-06-16 00:07] VITALS: BP 113/56
[2016-06-16 00:42] LABS: TROP-I INTERPRETATION NEGATIVE; TROPONIN-I < 0.01 ng/mL (0.0-0.30)
[2016-06-16 04:45] VITALS: BP 121/58
[2016-06-16 06:07] LABS: HEMATOCRIT 34.9 % (38.0-50.0); MCH 27.7 PG (29.0-34.0); MCHC 30.7 G/DL (30.0-36.0); MCV 90.4 FL (86-99); MEAN PLAT.VOLUME 10.9 uM^3 (9.0-12.4); PLATELET COUNT 521 K/uL (156-360); RBC DIS.WIDTH-CV 18.1 % (11.8-14.6); RED BLOOD COUNT 3.86 M/uL (4.00-5.50); WHITE BLOOD COUNT 14.8 K/uL (4.1-10.2)
[2016-06-16 06:37] LABS: ALKALINE PHOSPHATASE 74 IU/L (3-129); ANION GAP 16 MEQ/L (2-14); CHLORIDE 92 MEQ/L (99-109); GFR ESTIMATE (CALCULATED) 9 mL/min/; POTASSIUM 4.6 MEQ/L (3.7-5.4); SAMPLE HEMOLYSIS CHECK 0; SAMPLE ICTERIC CHECK 0; SAMPLE LIPEMIA CHECK 0; SODIUM 139 MEQ/L (136-147); TOTAL BILIRUBIN 0.4 MG/DL (0.0-1.0); UREA NITROGEN (BUN) 35 mg/dL (9-23)
[2016-06-16 06:44] LABS: TROP-I INTERPRETATION NEGATIVE; TROPONIN-I 0.01 ng/mL (0.0-0.30)
[2016-06-16 06:53] LABS: GLUCOSE 91 mg/dL (70-99)
[2016-06-16 07:19] VITALS: BP 135/62
[2016-06-16 07:47] LABS: BASOPHIL COUNT 0.2 K/uL (0-0.1); EOSINOPHIL (%) 1.6 % (0-5); EOSINOPHIL COUNT 0.2 K/uL (0-0.3); HEMATOLOGY COMMENT 1 SMEAR COMPATIBLE; IMMATURE GRANULOCYTE (%) 1.4 % (0.0-0.7); IMMATURE GRANULOCYTE COUNT 0.2 K/uL; LYMPHOCYTE COUNT 2.6 K/uL (1.0-2.8); MONOCYTE (%) 21.7 % (3-12); MONOCYTE COUNT 3.2 K/uL (0-0.8); NEUTROPHIL (%) 56.9 % (45-76); NEUTROPHIL COUNT 8.4 K/uL (1.8-6.4); PLAT.SUFFICIENCY INCREASED; USER ID STC
[2016-06-16 07:55] LABS: POINT-OF-CARE METER ID UU14162513
[2016-06-16 10:44] VITALS: BP 105/52
[2016-06-16 12:33] LABS: POINT-OF-CARE METER ID UU14162513
[2016-06-16] MEDS ORDERED: CARVEDILOL12.5 MG PO (14:18)
== END 2016-06-16 15:13 | disposition home or self-care (01) ==
LOC: EME 16:43 → EDOF 22:56 → 5WEST 22:56
PROVIDERS: Emergency Medicine; Hospitalist; Internal Medicine
DX: I95.9 Hypotension, unspecified (principal); R55 Syncope and collapse; R07.9 Chest pain, unspecified; N18.6 End stage renal disease; Z99.2 Dependence on renal dialysis; E11.22 Type 2 diabetes mellitus with diabetic chronic kidney disease; Z79.4 Long term (current) use of insulin; Z96.41 Presence of insulin pump (external) (internal); I48.0 Paroxysmal atrial fibrillation; I12.0 Hypertensive chronic kidney disease with stage 5 chronic kidney disease or end stage renal disease; E78.5 Hyperlipidemia, unspecified; G47.33 Obstructive sleep apnea (adult) (pediatric); E78.00 Pure hypercholesterolemia, unspecified; E66.9 Obesity, unspecified; J44.9 Chronic obstructive pulmonary disease, unspecified; Z68.41 Body mass index [BMI] 40.0-44.9, adult
CPT/HCPCS: 71010; 71250; 78582; 80048; 80053; 82948; 83605; 84484; 85025; 87040; 93005; 93306; 99281; 99285; A9540; A9567; G0378; J1644; J7030

== ENCOUNTER 2016-06-26 17:05 | Observation (INO) | payer OTHER ==
[~2016-06-26] VITALS: Ht 177.8 cm; Wt 129.4 kg
[2016-06-26 18:49] LABS: HEMATOCRIT 39.3 % (38.0-50.0); MCH 27.2 PG (29.0-34.0); MCV 87.7 FL (86-99); MEAN PLAT.VOLUME 9.8 uM^3 (9.0-12.4); PLATELET COUNT 419 K/uL (156-360); RBC DIS.WIDTH-CV 18.2 % (11.8-14.6); RBC DIS.WIDTH-SD 57.8 % (39-53); RED BLOOD COUNT 4.48 M/uL (4.00-5.50); WHITE BLOOD COUNT 13.4 K/uL (4.1-10.2)
[2016-06-26 19:01] LABS: CHLORIDE 92 mEq/L (99-109); POTASSIUM 4.9 mEq/L (3.7-5.4); SODIUM 135 mEq/L (136-147)
[2016-06-26 19:03] LABS: GLUCOSE 249 mg/dL (70-99)
[2016-06-26 19:05] LABS: ANION GAP 15 MEQ/L (2-14); TOTAL BILIRUBIN 0.3 mg/dL (0.0-1.0)
[2016-06-26 19:07] LABS: ALKALINE PHOSPHATASE 76 IU/L (3-129); GFR ESTIMATE (CALCULATED) 10 mL/min/
[2016-06-26 19:08] LABS: UREA NITROGEN (BUN) 32 mg/dL (9-23)
[2016-06-26 19:09] LABS: DIRECT BILIRUBIN 0.1 mg/dL (0.0-0.3)
[2016-06-26 19:10] LABS: LIPASE 32 U/L (1.0-51.0)
[2016-06-26 19:13] LABS: TROP-I INTERPRETATION NEGATIVE; TROPONIN-I 0.01 ng/mL (0.0-0.30)
[2016-06-26] MEDS ORDERED: RENVELA800 MG PO (21:41)
[2016-06-26] MEDS ORDERED: LO-DOSE ASPIRIN81 M2 PO (21:41)
[2016-06-27 00:58] VITALS: BP 161/80
[2016-06-27 01:36] LABS: TROP-I INTERPRETATION NEGATIVE; TROPONIN-I 0.02 ng/mL (0.0-0.30)
[2016-06-27 01:36] LABS: POINT-OF-CARE METER ID UU13113700; POINT-OF-CARE USER ID STWHLR41
[2016-06-27 03:26] VITALS: BP 115/53
[2016-06-27 07:19] VITALS: BP 147/69
[2016-06-27 08:43] LABS: POINT-OF-CARE METER ID UU13113831
[2016-06-27 08:59] LABS: TROP-I INTERPRETATION NEGATIVE; TROPONIN-I 0.02 ng/mL (0.0-0.30)
[2016-06-27 12:28] VITALS: BP 176/81; BP 90/60
== END 2016-06-27 13:06 | disposition home or self-care (01) ==
LOC: EME 17:05 → 5WEST 21:59 → EDOF 21:59 → 5WEST 06-27 00:31
PROVIDERS: Emergency Medicine; Family Medicine; Hospitalist; Physician Assistant
DX: R07.9 Chest pain, unspecified (principal); I31.3 Pericardial effusion (noninflammatory); I12.0 Hypertensive chronic kidney disease with stage 5 chronic kidney disease or end stage renal disease; N18.6 End stage renal disease; E11.9 Type 2 diabetes mellitus without complications; E66.9 Obesity, unspecified; Z87.891 Personal history of nicotine dependence; Z86.718 Personal history of other venous thrombosis and embolism
CPT/HCPCS: 71020; 74176; 80048; 80076; 82948; 83690; 83880; 84484; 85027; 93005; 99202; 99281; 99285; G0378; J1644; J2270; J2405

== ENCOUNTER 2016-06-29 13:05 | Inpatient (IN) | payer OTHER ==
[~2016-06-29] VITALS: Ht 177.8 cm; Wt 125.4 kg
[~2016-06-29 13:05] MED LIST changes: +LO-DOSE ASPIRIN81 M2 PO
[2016-06-29 13:22] LABS: POINT-OF-CARE METER ID UU13113702
[2016-06-29 14:03] LABS: BASOPHIL COUNT 0.1 K/uL (0-0.1); EOSINOPHIL (%) 4.4 % (0-5); EOSINOPHIL COUNT 0.7 K/uL (0-0.3); HEMATOCRIT 39.7 % (38.0-50.0); IMMATURE GRANULOCYTE (%) 0.6 % (0.0-0.7); IMMATURE GRANULOCYTE COUNT 0.1 K/uL; LYMPHOCYTE COUNT 1.6 K/uL (1.0-2.8); MCH 26.6 PG (29.0-34.0); MCHC 30.7 G/DL (30.0-36.0); MCV 86.7 FL (86-99); MEAN PLAT.VOLUME 9.7 uM^3 (9.0-12.4); MONOCYTE COUNT 2.6 K/uL (0-0.8); NEUTROPHIL (%) 68.2 % (45-76); NRBC (%) 0.1 /100 WBC (0-0); PLATELET COUNT 408 K/uL (156-360); RBC DIS.WIDTH-CV 18.1 % (11.8-14.6); RBC DIS.WIDTH-SD 56.9 % (39-53); RED BLOOD COUNT 4.58 M/uL (4.00-5.50); WHITE BLOOD COUNT 16.1 K/uL (4.1-10.2)
[2016-06-29 14:11] LABS: CHLORIDE 92 mEq/L (99-109); POTASSIUM 4.9 mEq/L (3.7-5.4); SODIUM 139 mEq/L (136-147)
[2016-06-29 14:14] LABS: ANION GAP 14 MEQ/L (2-14); GLUCOSE 112 mg/dL (70-99)
[2016-06-29 14:16] LABS: TOTAL BILIRUBIN 0.5 mg/dL (0.0-1.0)
[2016-06-29 14:17] LABS: ALKALINE PHOSPHATASE 70 IU/L (3-129); GFR ESTIMATE (CALCULATED) 10 mL/min/
[2016-06-29 14:18] LABS: UREA NITROGEN (BUN) 26 mg/dL (9-23)
[2016-06-29] MEDS ORDERED: GABAPENTIN100 MG PO (15:53)
[2016-06-29] MEDS ORDERED: CARVEDILOL25 MG PO (15:53)
[2016-06-29] MEDS ORDERED: RENVELA800 MG PO (15:54)
[2016-06-29] MEDS ORDERED: INSULIN PUMP SCCONT (15:56)
[2016-06-29 19:01] VITALS: BP 159/85
[2016-06-29 20:05] VITALS: BP 184/88
[2016-06-29 20:46] LABS: POINT-OF-CARE METER ID UU13113725
[2016-06-29 22:32] VITALS: BP 108/55
[2016-06-30 03:15] VITALS: BP 176/79
[2016-06-30 05:46] LABS: POINT-OF-CARE METER ID UU13113725
[2016-06-30 07:11] VITALS: BP 126/58
[2016-06-30 08:48] LABS: POINT-OF-CARE METER ID UU13113725
[2016-06-30 09:28] LABS: HEMATOCRIT 37.6 % (38.0-50.0); MCH 26.9 PG (29.0-34.0); MCHC 30.6 G/DL (30.0-36.0); MCV 87.9 FL (86-99); MEAN PLAT.VOLUME 9.9 uM^3 (9.0-12.4); PLATELET COUNT 409 K/uL (156-360); RBC DIS.WIDTH-CV 18.3 % (11.8-14.6); RBC DIS.WIDTH-SD 58.4 % (39-53); RED BLOOD COUNT 4.28 M/uL (4.00-5.50); WHITE BLOOD COUNT 15.8 K/uL (4.1-10.2)
[2016-06-30 09:51] LABS: ALKALINE PHOSPHATASE 60 IU/L (3-129); ANION GAP 16 MEQ/L (2-14); C-REACTIVE PROTEIN 153.6 MG/L (0-10); CHLORIDE 87 MEQ/L (99-109); SAMPLE HEMOLYSIS CHECK 0; SAMPLE ICTERIC CHECK 0; SAMPLE LIPEMIA CHECK 0; SODIUM 133 MEQ/L (136-147); TOTAL BILIRUBIN 0.5 MG/DL (0.0-1.0)
[2016-06-30 09:56] LABS: GFR ESTIMATE (CALCULATED) 7 mL/min/; GLUCOSE 202 mg/dL (70-99); UREA NITROGEN (BUN) 41 mg/dL (9-23)
[2016-06-30 11:26] VITALS: BP 82/43
[2016-06-30 15:19] VITALS: BP 122/64
[2016-06-30 16:44] LABS: POINT-OF-CARE METER ID UU13113725
[2016-06-30 18:51] VITALS: BP 146/67
[2016-06-30 20:33] LABS: POINT-OF-CARE METER ID UU13113725
[2016-06-30 22:54] VITALS: BP 108/74
[2016-07-01 03:31] VITALS: BP 116/56
[2016-07-01 05:53] LABS: POINT-OF-CARE METER ID UU13113725
[2016-07-01 06:51] LABS: HEMATOCRIT 33.1 % (38.0-50.0); MCH 26.8 PG (29.0-34.0); MCHC 30.5 G/DL (30.0-36.0); MCV 87.8 FL (86-99); MEAN PLAT.VOLUME 10.6 uM^3 (9.0-12.4); NRBC (%) 0.1 /100 WBC (0-0); PLATELET COUNT 397 K/uL (156-360); RBC DIS.WIDTH-CV 18.1 % (11.8-14.6); RBC DIS.WIDTH-SD 57.7 % (39-53); RED BLOOD COUNT 3.77 M/uL (4.00-5.50); WHITE BLOOD COUNT 14.7 K/uL (4.1-10.2)
[2016-07-01 07:07] VITALS: BP 123/58
[2016-07-01 07:24] LABS: ALKALINE PHOSPHATASE 61 IU/L (3-129); ANION GAP 16 MEQ/L (2-14); CHLORIDE 90 MEQ/L (99-109); GFR ESTIMATE (CALCULATED) 5 mL/min/; GLUCOSE 121 mg/dL (70-99); POTASSIUM 5.2 MEQ/L (3.7-5.4); SAMPLE HEMOLYSIS CHECK 0; SAMPLE ICTERIC CHECK 0; SAMPLE LIPEMIA CHECK 0; SODIUM 135 MEQ/L (136-147); TOTAL BILIRUBIN 0.4 MG/DL (0.0-1.0); UREA NITROGEN (BUN) 59 mg/dL (9-23)
[2016-07-01 09:24] LABS: TROP-I INTERPRETATION NEGATIVE; TROPONIN-I 0.03 ng/mL (0.0-0.30)
[2016-07-01 09:33] LABS: Estimated Average Glucose 180 mg/dL (70-123)
[2016-07-01 09:59] LABS: HEMOGLOBIN A1c (GLYCOHEMOGLOB) 7.9 % HGB (Below 5.7)
[2016-07-01 12:36] LABS: POINT-OF-CARE METER ID UU13113725
[2016-07-01 15:03] VITALS: BP 138/77
[2016-07-01 16:41] LABS: POINT-OF-CARE METER ID UU13113725
[2016-07-01 23:13] VITALS: BP 119/63
[2016-07-02 05:56] LABS: POINT-OF-CARE METER ID UU13113725
[2016-07-02 06:58] LABS: HEMATOCRIT 36.4 % (38.0-50.0); MCH 26.6 PG (29.0-34.0); MCHC 30.2 G/DL (30.0-36.0); MCV 88.1 FL (86-99); MEAN PLAT.VOLUME 10.8 uM^3 (9.0-12.4); PLATELET COUNT 443 K/uL (156-360); RBC DIS.WIDTH-CV 18.1 % (11.8-14.6); RBC DIS.WIDTH-SD 58.3 % (39-53); RED BLOOD COUNT 4.13 M/uL (4.00-5.50); WHITE BLOOD COUNT 16.3 K/uL (4.1-10.2)
[2016-07-02 07:08] VITALS: BP 96/50
[2016-07-02 07:25] LABS: ALKALINE PHOSPHATASE 73 IU/L (3-129); ANION GAP 15 MEQ/L (2-14); CHLORIDE 89 MEQ/L (99-109); GLUCOSE 107 mg/dL (70-99); POTASSIUM 4.6 MEQ/L (3.7-5.4); SAMPLE HEMOLYSIS CHECK 0; SAMPLE ICTERIC CHECK 0; SAMPLE LIPEMIA CHECK 0; SODIUM 135 MEQ/L (136-147); TOTAL BILIRUBIN 0.4 MG/DL (0.0-1.0); UREA NITROGEN (BUN) 45 mg/dL (9-23)
[2016-07-02 07:26] LABS: GFR ESTIMATE (CALCULATED) 7 mL/min/
[2016-07-02 12:21] LABS: POINT-OF-CARE METER ID UU13113725
[2016-07-02 16:08] VITALS: BP 123/67
[2016-07-02 16:21] LABS: POINT-OF-CARE METER ID UU13113725
[2016-07-02 20:59] LABS: POINT-OF-CARE METER ID UU13113725
[2016-07-02 23:02] VITALS: BP 116/62
[2016-07-03 07:24] LABS: POINT-OF-CARE METER ID UU13113725
[2016-07-03 08:11] VITALS: BP 113/58
[2016-07-03 11:04] LABS: HEMATOCRIT 32.1 % (38.0-50.0); MCHC 30.8 G/DL (30.0-36.0); MCV 87.5 FL (86-99); MEAN PLAT.VOLUME 10.3 uM^3 (9.0-12.4); NRBC (%) 0.2 /100 WBC (0-0); PLATELET COUNT 416 K/uL (156-360); RBC DIS.WIDTH-SD 57.8 % (39-53); RED BLOOD COUNT 3.67 M/uL (4.00-5.50); WHITE BLOOD COUNT 12.2 K/uL (4.1-10.2)
[2016-07-03 11:32] LABS: ANION GAP 16 MEQ/L (2-14); CHLORIDE 87 MEQ/L (99-109); POTASSIUM 5.5 MEQ/L (3.7-5.4); SAMPLE HEMOLYSIS CHECK 0; SAMPLE ICTERIC CHECK 0; SAMPLE LIPEMIA CHECK 0; SODIUM 130 MEQ/L (136-147); TOTAL BILIRUBIN 0.4 MG/DL (0.0-1.0); UREA NITROGEN (BUN) 62 mg/dL (9-23)
[2016-07-03 11:38] VITALS: BP 116/58
[2016-07-03 11:39] LABS: ALKALINE PHOSPHATASE 105 IU/L (3-129); GFR ESTIMATE (CALCULATED) 5 mL/min/; GLUCOSE 209 mg/dL (70-99)
[2016-07-03 18:26] LABS: POINT-OF-CARE METER ID UU13113725
[2016-07-03 23:40] VITALS: BP 128/64
[2016-07-04] MEDS ORDERED: AMOX TR-K CLV1 EAC3 PO (06:48)
[2016-07-04 08:01] LABS: HEMATOCRIT 31.7 % (38.0-50.0); MCH 26.4 PG (29.0-34.0); MCHC 30.6 G/DL (30.0-36.0); MCV 86.4 FL (86-99); MEAN PLAT.VOLUME 10.4 uM^3 (9.0-12.4); NRBC (%) 0.2 /100 WBC (0-0); PLATELET COUNT 416 K/uL (156-360); RBC DIS.WIDTH-CV 17.9 % (11.8-14.6); RBC DIS.WIDTH-SD 56.7 % (39-53); RED BLOOD COUNT 3.67 M/uL (4.00-5.50); WHITE BLOOD COUNT 11.3 K/uL (4.1-10.2)
[2016-07-04 08:14] LABS: ANION GAP 13 MEQ/L (2-14); CHLORIDE 86 MEQ/L (99-109); POTASSIUM 4.6 MEQ/L (3.7-5.4); SAMPLE HEMOLYSIS CHECK 0; SAMPLE ICTERIC CHECK 0; SAMPLE LIPEMIA CHECK 0; SODIUM 130 MEQ/L (136-147); TOTAL BILIRUBIN 0.4 MG/DL (0.0-1.0)
[2016-07-04 08:23] LABS: ALKALINE PHOSPHATASE 124 IU/L (3-129); GFR ESTIMATE (CALCULATED) 7 mL/min/; GLUCOSE 191 mg/dL (70-99); UREA NITROGEN (BUN) 33 mg/dL (9-23)
[2016-07-04 08:48] VITALS: BP 110/56
== END 2016-07-04 13:55 | disposition home health service (06) | DRG 193 ==
LOC: EME 13:05 → 5EAST 17:16 → EDOF 17:16 → 5EAST 19:21
PROVIDERS: Emergency Medicine; Internal Medicine
PROC: 5A1D60Z (ICD-10-PCS; principal; 2016-07-01)
DX: J18.9 Pneumonia, unspecified organism (principal); N18.6 End stage renal disease; I12.0 Hypertensive chronic kidney disease with stage 5 chronic kidney disease or end stage renal disease; Q89.01 Asplenia (congenital); E11.22 Type 2 diabetes mellitus with diabetic chronic kidney disease; D63.1 Anemia in chronic kidney disease; Z99.2 Dependence on renal dialysis; R09.02 Hypoxemia; E11.65 Type 2 diabetes mellitus with hyperglycemia; G47.33 Obstructive sleep apnea (adult) (pediatric); E78.5 Hyperlipidemia, unspecified; Z87.891 Personal history of nicotine dependence; Z79.4 Long term (current) use of insulin; K02.9 Dental caries, unspecified; J06.9 Acute upper respiratory infection, unspecified
CPT/HCPCS: 71020; 80053; 82948; 83036; 83605; 84484; 85025; 85027; 86140; 87040; 93005; 94799; 99202; 99281; 99285; J0692; J1644; J1756; J1815; J2543; J7040; J7050

== ENCOUNTER 2016-07-25 06:14 | Inpatient (IN) | payer OTHER ==
[~2016-07-25] VITALS: Ht 177.8 cm; Wt 129.0 kg
[~2016-07-25 06:14] MED LIST changes: +AMOX TR-K CLV1 EAC3 PO
[2016-07-25 07:09] LABS: BASOPHIL COUNT 0.1 K/uL (0-0.1); EOSINOPHIL (%) 1.4 % (0-5); EOSINOPHIL COUNT 0.2 K/uL (0-0.3); HEMATOCRIT 39.9 % (38.0-50.0); IMMATURE GRANULOCYTE (%) 0.4 % (0.0-0.7); IMMATURE GRANULOCYTE COUNT 0.1 K/uL; INSTRUMENT ABS NEUTROPHIL CT 12.3 K/uL; LYMPHOCYTE COUNT 1.3 K/uL (1.0-2.8); MCH 27.2 PG (29.0-34.0); MCHC 31.1 G/DL (30.0-36.0); MCV 87.5 FL (86-99); MEAN PLAT.VOLUME 10.5 uM^3 (9.0-12.4); MONOCYTE (%) 12.8 % (3-12); MONOCYTE COUNT 2.1 K/uL (0-0.8); NEUTROPHIL (%) 76.6 % (45-76); NEUTROPHIL COUNT 12.3 K/uL (1.8-6.4); PLATELET COUNT 416 K/uL (156-360); RBC DIS.WIDTH-CV 19.2 % (11.8-14.6); RBC DIS.WIDTH-SD 60.8 % (39-53); RED BLOOD COUNT 4.56 M/uL (4.00-5.50); WHITE BLOOD COUNT 16.1 K/uL (4.1-10.2)
[2016-07-25 07:25] LABS: ANION GAP 16 MEQ/L (2-14); CHLORIDE 92 MEQ/L (99-109); GFR ESTIMATE (CALCULATED) 5 mL/min/; GLUCOSE 130 mg/dL (70-99); SAMPLE HEMOLYSIS CHECK 0; SAMPLE ICTERIC CHECK 0; SAMPLE LIPEMIA CHECK 0; SODIUM 134 MEQ/L (136-147); UREA NITROGEN (BUN) 83 mg/dL (9-23)
[2016-07-25 07:26] LABS: POTASSIUM 6.7 MEQ/L (3.7-5.4)
[2016-07-25] MEDS ORDERED: DILTIAZEM 24HR180 M3 PO ×2 (10:11→10:13)
[2016-07-25 16:59] VITALS: BP 203/90
[2016-07-25 17:41] LABS: POINT-OF-CARE METER ID UU13113725
[2016-07-25 17:52] LABS: POINT-OF-CARE METER ID UU13113725
[2016-07-25 19:13] LABS: IMMUNOGLOBULIN A 254 MG/DL (40-350); IMMUNOGLOBULIN G 1021 MG/DL (650-1600); IMMUNOGLOBULIN M 61 MG/DL (50-300)
[2016-07-25 21:09] LABS: POINT-OF-CARE METER ID UU13113725
[2016-07-25 23:29] VITALS: BP 170/70
[2016-07-26 01:47] VITALS: BP 164/70
[2016-07-26 07:18] LABS: BASOPHIL COUNT 0.1 K/uL (0-0.1); EOSINOPHIL (%) 3.3 % (0-5); EOSINOPHIL COUNT 0.4 K/uL (0-0.3); IMMATURE GRANULOCYTE (%) 0.4 % (0.0-0.7); LYMPHOCYTE COUNT 1.9 K/uL (1.0-2.8); MCH 26.6 PG (29.0-34.0); MCHC 30.3 G/DL (30.0-36.0); MCV 87.9 FL (86-99); MEAN PLAT.VOLUME 10.3 uM^3 (9.0-12.4); MONOCYTE (%) 13.5 % (3-12); MONOCYTE COUNT 1.5 K/uL (0-0.8); PLATELET COUNT 338 K/uL (156-360); RBC DIS.WIDTH-CV 19.1 % (11.8-14.6); RBC DIS.WIDTH-SD 61.1 % (39-53); RED BLOOD COUNT 4.21 M/uL (4.00-5.50); WHITE BLOOD COUNT 10.9 K/uL (4.1-10.2)
[2016-07-26 07:19] LABS: ALKALINE PHOSPHATASE 46 IU/L (3-129); ANION GAP 14 MEQ/L (2-14); CHLORIDE 92 MEQ/L (99-109); GLUCOSE 168 mg/dL (70-99); SAMPLE HEMOLYSIS CHECK 0; SAMPLE ICTERIC CHECK 0; SAMPLE LIPEMIA CHECK 0; SODIUM 132 MEQ/L (136-147); TOTAL BILIRUBIN 0.5 MG/DL (0.0-1.0); UREA NITROGEN (BUN) 56 mg/dL (9-23)
[2016-07-26 07:31] LABS: GFR ESTIMATE (CALCULATED) 6 mL/min/
[2016-07-26 07:32] LABS: POTASSIUM 6.5 MEQ/L (3.7-5.4)
[2016-07-26 09:48] VITALS: BP 148/67
[2016-07-26 11:44] LABS: POINT-OF-CARE METER ID UU13113725
[2016-07-26 12:14] LABS: POINT-OF-CARE METER ID UU13113725
[2016-07-26 17:02] LABS: POINT-OF-CARE METER ID UU13113725
[2016-07-26 17:28] VITALS: BP 174/72
[2016-07-26 18:51] VITALS: BP 184/85
[2016-07-26 22:25] VITALS: BP 138/65
[2016-07-27 03:06] VITALS: BP 138/62
[2016-07-27 05:51] LABS: POINT-OF-CARE METER ID UU13113725
[2016-07-27 06:16] LABS: BASOPHIL COUNT 0.1 K/uL (0-0.1); EOSINOPHIL (%) 7.5 % (0-5); EOSINOPHIL COUNT 0.7 K/uL (0-0.3); IMMATURE GRANULOCYTE (%) 0.2 % (0.0-0.7); INSTRUMENT ABS NEUTROPHIL CT 4.9 K/uL; LYMPHOCYTE COUNT 1.8 K/uL (1.0-2.8); MCH 26.8 PG (29.0-34.0); MCHC 30.8 G/DL (30.0-36.0); MONOCYTE (%) 18.4 % (3-12); MONOCYTE COUNT 1.7 K/uL (0-0.8); NEUTROPHIL (%) 53.3 % (45-76); NEUTROPHIL COUNT 4.9 K/uL (1.8-6.4); PLATELET COUNT 336 K/uL (156-360); RBC DIS.WIDTH-CV 18.6 % (11.8-14.6); RBC DIS.WIDTH-SD 59.7 % (39-53); RED BLOOD COUNT 4.37 M/uL (4.00-5.50); WHITE BLOOD COUNT 9.3 K/uL (4.1-10.2)
[2016-07-27 06:42] LABS: ALKALINE PHOSPHATASE 48 IU/L (3-129); ANION GAP 15 MEQ/L (2-14); CHLORIDE 98 MEQ/L (99-109); GLUCOSE 174 mg/dL (70-99); SAMPLE HEMOLYSIS CHECK 0; SAMPLE ICTERIC CHECK 0; SAMPLE LIPEMIA CHECK 0; TOTAL BILIRUBIN 0.4 MG/DL (0.0-1.0); UREA NITROGEN (BUN) 47 mg/dL (9-23)
[2016-07-27 06:45] LABS: GFR ESTIMATE (CALCULATED) 8 mL/min/; POTASSIUM 4.7 MEQ/L (3.7-5.4); SODIUM 140 MEQ/L (136-147)
[2016-07-27 07:48] LABS: POINT-OF-CARE METER ID UU13113725
[2016-07-27 07:54] VITALS: BP 162/96
[2016-07-27 16:47] VITALS: BP 130/72
== END 2016-07-27 18:05 | disposition home health service (06) | DRG 640 ==
LOC: EME 06:14 → EDOF 11:21 → 5EAST 11:21
PROVIDERS: Emergency Medicine; Internal Medicine
PROC: 5A1D60Z (ICD-10-PCS; principal; 2016-07-25)
DX: E87.5 Hyperkalemia (principal); N18.6 End stage renal disease; G93.41 Metabolic encephalopathy; I12.0 Hypertensive chronic kidney disease with stage 5 chronic kidney disease or end stage renal disease; F05 Delirium due to known physiological condition; J81.1 Chronic pulmonary edema; Z68.41 Body mass index [BMI] 40.0-44.9, adult; E11.22 Type 2 diabetes mellitus with diabetic chronic kidney disease; E83.52 Hypercalcemia; E78.5 Hyperlipidemia, unspecified; I48.2 Chronic atrial fibrillation; G47.33 Obstructive sleep apnea (adult) (pediatric); K04.7 Periapical abscess without sinus; I87.8 Other specified disorders of veins; K05.10 Chronic gingivitis, plaque induced; G40.909 Epilepsy, unspecified, not intractable, without status epilepticus; E66.9 Obesity, unspecified; Z87.891 Personal history of nicotine dependence; Z90.81 Acquired absence of spleen; Z91.81 History of falling; Z99.2 Dependence on renal dialysis; Z96.41 Presence of insulin pump (external) (internal); Z86.718 Personal history of other venous thrombosis and embolism; Z79.4 Long term (current) use of insulin; Z83.3 Family history of diabetes mellitus; Z82.3 Family history of stroke
CPT/HCPCS: 70450; 71010; 80048; 80053; 81003; 82784 90; 82948; 83605; 85025; 87040; 87086; 93005; 93306; 99281; 99285; J0696; J1815; J7050

== ENCOUNTER 2016-08-05 10:12 | Emergency (ER) | payer OTHER ==
[~2016-08-05] VITALS: Ht 177.8 cm; Wt 133.9 kg
[~2016-08-05 10:12] MED LIST changes: +DILTIAZEM 24HR180 M3 PO
[2016-08-05 11:28] LABS: BASOPHIL COUNT 0.1 K/uL (0-0.1); EOSINOPHIL (%) 3.4 % (0-5); EOSINOPHIL COUNT 0.5 K/uL (0-0.3); HEMATOCRIT 36.8 % (38.0-50.0); IMMATURE GRANULOCYTE (%) 0.7 % (0.0-0.7); IMMATURE GRANULOCYTE COUNT 0.1 K/uL; INSTRUMENT ABS NEUTROPHIL CT 9.8 K/uL; LYMPHOCYTE COUNT 2.2 K/uL (1.0-2.8); MCH 26.9 PG (29.0-34.0); MCHC 31.5 G/DL (30.0-36.0); MCV 85.2 FL (86-99); MEAN PLAT.VOLUME 9.9 uM^3 (9.0-12.4); MONOCYTE (%) 13.6 % (3-12); NEUTROPHIL (%) 66.9 % (45-76); NEUTROPHIL COUNT 9.8 K/uL (1.8-6.4); PLATELET COUNT 422 K/uL (156-360); RBC DIS.WIDTH-CV 18.1 % (11.8-14.6); RBC DIS.WIDTH-SD 56.2 % (39-53); RED BLOOD COUNT 4.32 M/uL (4.00-5.50); WHITE BLOOD COUNT 14.6 K/uL (4.1-10.2)
[2016-08-05 11:40] LABS: CHLORIDE 95 mEq/L (99-109); POTASSIUM 4.6 mEq/L (3.7-5.4); SODIUM 138 mEq/L (136-147)
[2016-08-05 11:42] LABS: GLUCOSE 166 mg/dL (70-99)
[2016-08-05 11:43] LABS: ANION GAP 15 MEQ/L (2-14)
[2016-08-05 11:45] LABS: GFR ESTIMATE (CALCULATED) 8 mL/min/
[2016-08-05 11:46] LABS: UREA NITROGEN (BUN) 42 mg/dL (9-23)
[2016-08-05] MEDS ORDERED: PERCOCET 10/1 TABLET PO (13:30)
[2016-08-05 14:49] VITALS: BP 182/89
== END 2016-08-05 14:50 | disposition home or self-care (01) ==
LOC: EME 10:12
PROVIDERS: Emergency Medicine
PROC: 2W3QX1Z Immobilization of Right Lower Leg using Splint (ICD-10-PCS; principal; 2016-08-05)
DX: M84.474A Pathological fracture, right foot, initial encounter for fracture (principal); I12.0 Hypertensive chronic kidney disease with stage 5 chronic kidney disease or end stage renal disease; N18.6 End stage renal disease; E11.22 Type 2 diabetes mellitus with diabetic chronic kidney disease; Z99.2 Dependence on renal dialysis; E78.5 Hyperlipidemia, unspecified; E89.2 Postprocedural hypoparathyroidism; R56.9 Unspecified convulsions; F32.9 Major depressive disorder, single episode, unspecified; Z87.891 Personal history of nicotine dependence; Z96.41 Presence of insulin pump (external) (internal); Z79.4 Long term (current) use of insulin; Z86.718 Personal history of other venous thrombosis and embolism; Z79.82 Long term (current) use of aspirin
CPT/HCPCS: 73630; 80048; 85025; 93971; 99281; 99285

== ENCOUNTER 2016-10-23 22:21 | Observation (INO) | payer OTHER ==
[~2016-10-23] VITALS: Ht 177.8 cm; Wt 140.6 kg
[~2016-10-23 22:21] MED LIST changes: +PERCOCET 10/1 TABLET PO
[2016-10-23 23:10] LABS: HEMATOCRIT 42.6 % (38.0-50.0); MCH 27.9 PG (29.0-34.0); MCHC 31.9 G/DL (30.0-36.0); MCV 87.3 FL (86-99); NRBC (%) 0.2 /100 WBC (0-0); PLATELET COUNT 347 K/uL (156-360); RBC DIS.WIDTH-CV 18.6 % (11.8-14.6); RBC DIS.WIDTH-SD 58.8 % (39-53); RED BLOOD COUNT 4.88 M/uL (4.00-5.50); WHITE BLOOD COUNT 12.3 K/uL (4.1-10.2)
[2016-10-23 23:27] LABS: GLUCOSE 224 mg/dL (70-99)
[2016-10-23 23:28] LABS: ANION GAP 22 MEQ/L (2-14); TOTAL BILIRUBIN 0.4 mg/dL (0.0-1.0)
[2016-10-23 23:30] LABS: ALKALINE PHOSPHATASE 56 IU/L (3-129); GFR ESTIMATE (CALCULATED) 4 mL/min/; SERUM ETHYL ALCOHOL < 10 mg/dL
[2016-10-23 23:31] LABS: UREA NITROGEN (BUN) 98 mg/dL (9-23)
[2016-10-23 23:32] LABS: DIRECT BILIRUBIN 0.1 mg/dL (0.0-0.3)
[2016-10-23 23:34] LABS: CREATINE KINASE 397 IU/L (1-294); LIPASE 79 U/L (1.0-51.0)
[2016-10-23 23:35] LABS: TROP-I INTERPRETATION NEGATIVE; TROPONIN-I < 0.01 ng/mL (0.0-0.30)
[2016-10-23 23:40] LABS: INTER. NORMALIZED RATIO 1.1; PROTHROMBIN TIME 10.7 (9.2-11.2); PTT 28.3 (25-32)
[2016-10-23 23:44] LABS: POTASSIUM 6.7 mEq/L (3.7-5.4)
[2016-10-23 23:50] LABS: CHLORIDE 93 MEQ/L (99-109); MAGNESIUM 2.5 mg/dl (1.3-2.7); SODIUM 137 MEQ/L (136-147)
[2016-10-24 01:27] LABS: ANION GAP 21 MEQ/L (2-14); CHLORIDE 95 mEq/L (99-109); CREATININE 12.1 mg/dL (0.6-1.3); GLUCOSE 166 mg/dL (70-99); ISTAT DEVICE 359068; POTASSIUM > 6.0 mEq/L (3.7-5.4); SODIUM 135 mEq/L (136-147); UREA NITROGEN (BUN) 89 mg/dL (9-23)
[2016-10-24 02:25] LABS: POINT-OF-CARE METER ID UU14100415
[2016-10-24 06:31] LABS: POINT-OF-CARE METER ID UU13113702
[2016-10-24 11:29] LABS: HBSG INDEX 0.18
[2016-10-24 13:38] VITALS: BP 172/78
[2016-10-24] MEDS ORDERED: LYRICA100 MG PO (15:07)
[2016-10-24] MEDS ORDERED: DIALYVITE 3,001 EACH PO (15:09)
[2016-10-24] MEDS ORDERED: OXAYDO5 MG PO (15:19)
[2016-10-24 15:31] LABS: TROP-I INTERPRETATION NEGATIVE; TROPONIN-I < 0.01 ng/mL (0.0-0.30)
[2016-10-24 17:51] LABS: ANION GAP 25 MEQ/L (2-14); CHLORIDE 95 MEQ/L (99-109); GLUCOSE 132 mg/dL (70-99); POTASSIUM 5.4 MEQ/L (3.7-5.4); SAMPLE HEMOLYSIS CHECK 0; SAMPLE ICTERIC CHECK 0; SAMPLE LIPEMIA CHECK 0; SODIUM 140 MEQ/L (136-147)
[2016-10-24 17:57] LABS: GFR ESTIMATE (CALCULATED) 7 mL/min/; UREA NITROGEN (BUN) 47 mg/dL (9-23)
[2016-10-24 19:19] VITALS: BP 163/88
[2016-10-24 21:31] LABS: POINT-OF-CARE METER ID UU14149397
[2016-10-25 00:01] VITALS: BP 169/77
[2016-10-25 03:47] VITALS: BP 143/66
[2016-10-25 06:29] LABS: ANION GAP 20 MEQ/L (2-14); CHLORIDE 94 MEQ/L (99-109); GFR ESTIMATE (CALCULATED) 5 mL/min/; GLUCOSE 141 mg/dL (70-99); POTASSIUM 4.9 MEQ/L (3.7-5.4); SAMPLE HEMOLYSIS CHECK 0; SAMPLE ICTERIC CHECK 0; SAMPLE LIPEMIA CHECK 0; SODIUM 140 MEQ/L (136-147); UREA NITROGEN (BUN) 59 mg/dL (9-23)
[2016-10-25 08:18] VITALS: BP 167/78
[2016-10-25 09:36] LABS: HEMATOCRIT 40.7 % (38.0-50.0); MCH 27.9 PG (29.0-34.0); MCHC 31.4 G/DL (30.0-36.0); MCV 88.7 FL (86-99); MEAN PLAT.VOLUME 10.8 uM^3 (9.0-12.4); PLATELET COUNT 342 K/uL (156-360); RBC DIS.WIDTH-CV 19.1 % (11.8-14.6); RBC DIS.WIDTH-SD 61.1 % (39-53); RED BLOOD COUNT 4.59 M/uL (4.00-5.50); WHITE BLOOD COUNT 14.4 K/uL (4.1-10.2)
[2016-10-25] MEDS ORDERED: LYRICA100 MG PO (09:50)
[2016-10-25 11:22] VITALS: BP 172/81
[2016-10-25 11:41] LABS: POINT-OF-CARE METER ID UU14149397
== END 2016-10-25 15:26 | disposition home or self-care (01) ==
LOC: EME 22:21 → EDOF 10-24 09:58 → 3EAST 10-24 09:58
PROVIDERS: Emergency Medicine; Hospitalist; Internal Medicine; Internal Medicine Nephrology; Physician Assistant
PROC: 5A1D00Z (ICD-10-PCS; principal; 2016-10-24)
DX: E87.5 Hyperkalemia (principal); R53.1 Weakness; E83.51 Hypocalcemia; E87.8 Other disorders of electrolyte and fluid balance, not elsewhere classified; R55 Syncope and collapse; E87.70 Fluid overload, unspecified; J81.1 Chronic pulmonary edema; I12.0 Hypertensive chronic kidney disease with stage 5 chronic kidney disease or end stage renal disease; E11.22 Type 2 diabetes mellitus with diabetic chronic kidney disease; N18.6 End stage renal disease; Z99.2 Dependence on renal dialysis; Z79.4 Long term (current) use of insulin; E78.5 Hyperlipidemia, unspecified; I48.91 Unspecified atrial fibrillation; Z90.81 Acquired absence of spleen; G47.33 Obstructive sleep apnea (adult) (pediatric); E11.42 Type 2 diabetes mellitus with diabetic polyneuropathy; R20.0 Anesthesia of skin; R07.9 Chest pain, unspecified; R11.0 Nausea; R06.02 Shortness of breath; Z87.891 Personal history of nicotine dependence; Z88.8 Allergy status to other drugs, medicaments and biological substances; Z79.82 Long term (current) use of aspirin; Z96.41 Presence of insulin pump (external) (internal); I95.9 Hypotension, unspecified
CPT/HCPCS: 70450; 71020; 80047; 80048; 80076; 81003; 82550; 82948; 83690; 83735; 84100; 84132 91; 84484; 84999; 85027; 85610; 85730; 87340; 93005; 93880; 94640; 94640 76; 99281; 99285; G0257; G0378; G0480; J0610; J1644; J1815; J1940; J2270; J2765; J7050

== ENCOUNTER 2016-12-26 01:06 | Inpatient (IN) | payer OTHER ==
[~2016-12-26] VITALS: Ht 177.8 cm; Wt 130.4 kg
[~2016-12-26 01:06] MED LIST changes: +LYRICA100 MG PO; +OXAYDO5 MG PO
[2016-12-26 01:36] LABS: BASOPHIL COUNT 0.1 K/uL (0-0.1); EOSINOPHIL (%) 2.2 % (0-5); EOSINOPHIL COUNT 0.4 K/uL (0-0.3); HEMATOCRIT 38.9 % (38.0-50.0); IMMATURE GRANULOCYTE COUNT 0.2 K/uL; INSTRUMENT ABS NEUTROPHIL CT 14.4 K/uL; LYMPHOCYTE COUNT 1.8 K/uL (1.0-2.8); MCH 27.7 PG (29.0-34.0); MCHC 31.9 G/DL (30.0-36.0); MCV 86.8 FL (86-99); MEAN PLAT.VOLUME 10.5 uM^3 (9.0-12.4); MONOCYTE (%) 9.7 % (3-12); MONOCYTE COUNT 1.8 K/uL (0-0.8); NEUTROPHIL (%) 76.8 % (45-76); NEUTROPHIL COUNT 14.4 K/uL (1.8-6.4); NRBC (%) 0.2 /100 WBC (0-0); PLATELET COUNT 495 K/uL (156-360); RBC DIS.WIDTH-CV 16.9 % (11.8-14.6); RBC DIS.WIDTH-SD 51.9 % (39-53); RED BLOOD COUNT 4.48 M/uL (4.00-5.50); WHITE BLOOD COUNT 18.7 K/uL (4.1-10.2)
[2016-12-26 01:46] LABS: CHLORIDE 89 mEq/L (99-109); SODIUM 132 mEq/L (136-147)
[2016-12-26 01:47] LABS: GLUCOSE 164 mg/dL (70-99)
[2016-12-26 01:49] LABS: ANION GAP 19 MEQ/L (2-14)
[2016-12-26 01:51] LABS: GFR ESTIMATE (CALCULATED) 4 mL/min/
[2016-12-26 01:52] LABS: UREA NITROGEN (BUN) 84 mg/dL (9-23)
[2016-12-26 01:58] LABS: POTASSIUM 8.8 mEq/L (3.7-5.4)
[2016-12-26 01:59] LABS: TROP-I INTERPRETATION NEGATIVE; TROPONIN-I 0.04 ng/mL (0.0-0.30)
[2016-12-26 09:16] LABS: MCH 28.4 PG (29.0-34.0); MCHC 32.8 G/DL (30.0-36.0); MCV 86.7 FL (86-99); MEAN PLAT.VOLUME 10.9 uM^3 (9.0-12.4); NRBC (%) 0.2 /100 WBC (0-0); PLATELET COUNT 455 K/uL (156-360); RBC DIS.WIDTH-CV 17.2 % (11.8-14.6); RBC DIS.WIDTH-SD 52.6 % (39-53); WHITE BLOOD COUNT 13.7 K/uL (4.1-10.2)
[2016-12-26 09:30] LABS: CHLORIDE 94 mEq/L (99-109); SODIUM 136 mEq/L (136-147)
[2016-12-26 09:33] LABS: ANION GAP 20 MEQ/L (2-14)
[2016-12-26 09:34] LABS: TOTAL BILIRUBIN 0.4 mg/dL (0.0-1.0)
[2016-12-26 09:36] LABS: ALKALINE PHOSPHATASE 63 IU/L (3-129)
[2016-12-26 09:37] LABS: UREA NITROGEN (BUN) 55 mg/dL (9-23)
[2016-12-26 09:43] LABS: GFR ESTIMATE (CALCULATED) 7 mL/min/; GLUCOSE 94 mg/dL (70-99); POTASSIUM 5.5 mEq/L (3.7-5.4)
[2016-12-26 09:44] LABS: TROP-I INTERPRETATION NEGATIVE; TROPONIN-I 0.11 ng/mL (0.0-0.30)
[2016-12-26 13:00] VITALS: BP 112/91
[2016-12-26 14:00] VITALS: BP 145/88
[2016-12-26 14:41] LABS: METH RESISTANT S AUREUS PCR NEGATIVE (NEGATIVE)
[2016-12-26 14:42] LABS: PROBE CHECK PASS; SPECIMEN PROCESSING CONTROL PASS
[2016-12-26 15:31] LABS: TROP-I INTERPRETATION NEGATIVE; TROPONIN-I 0.06 ng/mL (0.0-0.30)
[2016-12-26 16:00] VITALS: BP 129/68
[2016-12-26 20:00] VITALS: BP 129/73
[2016-12-26 22:17] LABS: POINT-OF-CARE METER ID UU14174217
[2016-12-27 00:40] VITALS: BP 176/84
[2016-12-27 04:00] VITALS: BP 167/81
[2016-12-27 07:51] LABS: BASOPHIL COUNT 0.1 K/uL (0-0.1); EOSINOPHIL (%) 4.7 % (0-5); EOSINOPHIL COUNT 0.6 K/uL (0-0.3); HEMATOCRIT 36.5 % (38.0-50.0); IMMATURE GRANULOCYTE (%) 0.8 % (0.0-0.7); IMMATURE GRANULOCYTE COUNT 0.1 K/uL; INSTRUMENT ABS NEUTROPHIL CT 7.2 K/uL; LYMPHOCYTE COUNT 1.7 K/uL (1.0-2.8); MCH 28.3 PG (29.0-34.0); MCHC 32.1 G/DL (30.0-36.0); MCV 88.4 FL (86-99); MEAN PLAT.VOLUME 10.6 uM^3 (9.0-12.4); MONOCYTE (%) 17.5 % (3-12); MONOCYTE COUNT 2.1 K/uL (0-0.8); NEUTROPHIL (%) 61.3 % (45-76); NEUTROPHIL COUNT 7.2 K/uL (1.8-6.4); NRBC (%) 0.2 /100 WBC (0-0); PLATELET COUNT 413 K/uL (156-360); RBC DIS.WIDTH-CV 17.6 % (11.8-14.6); RBC DIS.WIDTH-SD 55.4 % (39-53); RED BLOOD COUNT 4.13 M/uL (4.00-5.50); WHITE BLOOD COUNT 11.8 K/uL (4.1-10.2)
[2016-12-27 08:00] VITALS: BP 173/94
[2016-12-27 08:30] LABS: ANION GAP 14 MEQ/L (2-14); CHLORIDE 91 MEQ/L (99-109); GFR ESTIMATE (CALCULATED) 6 mL/min/; GLUCOSE 103 mg/dL (70-99); POTASSIUM 5.9 MEQ/L (3.7-5.4); SAMPLE HEMOLYSIS CHECK 0; SAMPLE ICTERIC CHECK 0; SAMPLE LIPEMIA CHECK 0; SODIUM 135 MEQ/L (136-147); UREA NITROGEN (BUN) 56 mg/dL (9-23)
[2016-12-27 08:56] LABS: POINT-OF-CARE METER ID UU13113731
[2016-12-27 14:20] VITALS: BP 167/81
== END 2016-12-27 17:00 | disposition home or self-care (01) | DRG 683 ==
LOC: EME 01:06 → 4WEST 02:34 → EDOF 02:34 → ENRESERV 02:37 → EDOF 06:59 → ENRESERV 07:27 → 4WEST 12:47
PROVIDERS: Emergency Medicine; Internal Medicine; Internal Medicine Nephrology
PROC: 5A1D60Z (ICD-10-PCS; principal; 2016-12-27)
DX: N18.6 End stage renal disease (principal); E87.70 Fluid overload, unspecified; E87.5 Hyperkalemia; E87.1 Hypo-osmolality and hyponatremia; E11.22 Type 2 diabetes mellitus with diabetic chronic kidney disease; I12.0 Hypertensive chronic kidney disease with stage 5 chronic kidney disease or end stage renal disease; I48.0 Paroxysmal atrial fibrillation; G47.33 Obstructive sleep apnea (adult) (pediatric); E66.01 Morbid (severe) obesity due to excess calories; E78.5 Hyperlipidemia, unspecified; E03.9 Hypothyroidism, unspecified; Z99.2 Dependence on renal dialysis; Z79.4 Long term (current) use of insulin; Z87.891 Personal history of nicotine dependence
CPT/HCPCS: 71010; 80048; 80053; 82948; 84484; 85025; 85027; 87641; 93005; 94799; J0360; J1644; J1815; J2270

== ENCOUNTER 2017-01-07 11:35 | Inpatient (IN) | payer OTHER ==
[~2017-01-07] VITALS: Ht 177.8 cm; Wt 132.0 kg
[2017-01-07 12:10] LABS: BASOPHIL COUNT 0.1 K/uL (0-0.1); EOSINOPHIL COUNT 0.5 K/uL (0-0.3); HEMATOCRIT 37.1 % (38.0-50.0); IMMATURE GRANULOCYTE (%) 1.9 % (0.0-0.7); IMMATURE GRANULOCYTE COUNT 0.3 K/uL; INSTRUMENT ABS NEUTROPHIL CT 7.1 K/uL; LYMPHOCYTE COUNT 2.3 K/uL (1.0-2.8); MCH 27.7 PG (29.0-34.0); MCHC 31.3 G/DL (30.0-36.0); MCV 88.5 FL (86-99); MEAN PLAT.VOLUME 10.9 uM^3 (9.0-12.4); MONOCYTE (%) 23.4 % (3-12); MONOCYTE COUNT 3.1 K/uL (0-0.8); NEUTROPHIL COUNT 7.1 K/uL (1.8-6.4); NRBC (%) 0.9 /100 WBC (0-0); PLATELET COUNT 456 K/uL (156-360); RBC DIS.WIDTH-CV 18.2 % (11.8-14.6); RBC DIS.WIDTH-SD 57.8 % (39-53); RED BLOOD COUNT 4.19 M/uL (4.00-5.50); WHITE BLOOD COUNT 13.4 K/uL (4.1-10.2)
[2017-01-07 12:27] LABS: CHLORIDE 90 mEq/L (99-109); POTASSIUM 5.8 mEq/L (3.7-5.4); SODIUM 133 mEq/L (136-147)
[2017-01-07 12:29] LABS: GLUCOSE 206 mg/dL (70-99)
[2017-01-07 12:30] LABS: ANION GAP 17 MEQ/L (2-14)
[2017-01-07 12:33] LABS: GFR ESTIMATE (CALCULATED) 6 mL/min/
[2017-01-07 12:34] LABS: UREA NITROGEN (BUN) 51 mg/dL (9-23)
[2017-01-07 18:15] VITALS: BP 158/78
[2017-01-07 19:18] VITALS: BP 142/64
[2017-01-07 21:18] LABS: POINT-OF-CARE METER ID UU14188577
[2017-01-07 23:41] VITALS: BP 138/60
[2017-01-08 04:24] VITALS: BP 132/60
[2017-01-08 06:27] LABS: POINT-OF-CARE METER ID UU14208753
[2017-01-08 07:40] VITALS: BP 132/48
[2017-01-08 08:45] LABS: HEMATOCRIT 36.9 % (38.0-50.0); MCH 27.3 PG (29.0-34.0); MCHC 30.9 G/DL (30.0-36.0); MCV 88.3 FL (86-99); MEAN PLAT.VOLUME 10.7 uM^3 (9.0-12.4); NRBC (%) 0.8 /100 WBC (0-0); PLATELET COUNT 487 K/uL (156-360); RBC DIS.WIDTH-CV 17.7 % (11.8-14.6); RBC DIS.WIDTH-SD 56.6 % (39-53); RED BLOOD COUNT 4.18 M/uL (4.00-5.50); WHITE BLOOD COUNT 14.3 K/uL (4.1-10.2)
[2017-01-08 08:46] LABS: BASOPHIL COUNT 0.1 K/uL (0-0.1); EOSINOPHIL (%) 6.8 % (0-5); HEMATOCRIT 36.2 % (38.0-50.0); IMMATURE GRANULOCYTE (%) 1.6 % (0.0-0.7); IMMATURE GRANULOCYTE COUNT 0.2 K/uL; INSTRUMENT ABS NEUTROPHIL CT 8.2 K/uL; LYMPHOCYTE COUNT 2.1 K/uL (1.0-2.8); MCHC 31.5 G/DL (30.0-36.0); MCV 88.9 FL (86-99); MEAN PLAT.VOLUME 10.2 uM^3 (9.0-12.4); MONOCYTE (%) 18.8 % (3-12); MONOCYTE COUNT 2.7 K/uL (0-0.8); NEUTROPHIL (%) 57.2 % (45-76); NEUTROPHIL COUNT 8.2 K/uL (1.8-6.4); NRBC (%) 0.8 /100 WBC (0-0); PLATELET COUNT 462 K/uL (156-360); RBC DIS.WIDTH-CV 17.7 % (11.8-14.6); RBC DIS.WIDTH-SD 56.6 % (39-53); RED BLOOD COUNT 4.07 M/uL (4.00-5.50); WHITE BLOOD COUNT 14.4 K/uL (4.1-10.2)
[2017-01-08 08:48] LABS: INTER. NORMALIZED RATIO 1.2; PROTHROMBIN TIME 12.7 SEC (10.2-12.9)
[2017-01-08 08:58] LABS: ANION GAP 19 MEQ/L (2-14); CHLORIDE 89 MEQ/L (99-109); POTASSIUM 5.7 MEQ/L (3.7-5.4); SAMPLE HEMOLYSIS CHECK 0; SAMPLE ICTERIC CHECK 0; SAMPLE LIPEMIA CHECK 0; SODIUM 136 MEQ/L (136-147)
[2017-01-08 09:03] LABS: GFR ESTIMATE (CALCULATED) 6 mL/min/; GLUCOSE 121 mg/dL (70-99); UREA NITROGEN (BUN) 65 mg/dL (9-23)
[2017-01-08 09:05] LABS: ANION GAP 19 MEQ/L (2-14); C-REACTIVE PROTEIN 138.7 MG/L (0-10); CHLORIDE 89 MEQ/L (99-109); GFR ESTIMATE (CALCULATED) 5 mL/min/; POTASSIUM 5.7 MEQ/L (3.7-5.4); SAMPLE HEMOLYSIS CHECK 0; SAMPLE ICTERIC CHECK 0; SAMPLE LIPEMIA CHECK 0; SODIUM 136 MEQ/L (136-147); UREA NITROGEN (BUN) 62 mg/dL (9-23)
[2017-01-08 09:07] LABS: GLUCOSE 110 mg/dL (70-99)
[2017-01-08 10:32] LABS: VANCOMYCIN, TROUGH 16.8 MCG/ML (10-20)
[2017-01-08 14:21] LABS: POINT-OF-CARE METER ID UU14208753
[2017-01-08 14:55] VITALS: BP 138/64
[2017-01-08] MEDS ORDERED: OXYCODONE HCL10 MG PO (15:58)
[2017-01-08 17:01] LABS: POINT-OF-CARE METER ID UU14117124
[2017-01-08 19:39] VITALS: BP 142/78
[2017-01-08 23:37] VITALS: BP 148/74
[2017-01-09 06:08] LABS: POINT-OF-CARE METER ID UU14117124
[2017-01-09 08:30] LABS: BASOPHIL COUNT 0.1 K/uL (0-0.1); EOSINOPHIL (%) 7.1 % (0-5); EOSINOPHIL COUNT 0.9 K/uL (0-0.3); HEMATOCRIT 35.4 % (38.0-50.0); IMMATURE GRANULOCYTE (%) 1.3 % (0.0-0.7); IMMATURE GRANULOCYTE COUNT 0.2 K/uL; INSTRUMENT ABS NEUTROPHIL CT 7.3 K/uL; LYMPHOCYTE COUNT 2.3 K/uL (1.0-2.8); MCH 27.4 PG (29.0-34.0); MCHC 31.1 G/DL (30.0-36.0); MCV 88.3 FL (86-99); MEAN PLAT.VOLUME 10.5 uM^3 (9.0-12.4); MONOCYTE (%) 18.3 % (3-12); MONOCYTE COUNT 2.4 K/uL (0-0.8); NEUTROPHIL (%) 54.9 % (45-76); NEUTROPHIL COUNT 7.3 K/uL (1.8-6.4); NRBC (%) 0.4 /100 WBC (0-0); PLATELET COUNT 464 K/uL (156-360); RBC DIS.WIDTH-CV 17.6 % (11.8-14.6); RBC DIS.WIDTH-SD 55.8 % (39-53); RED BLOOD COUNT 4.01 M/uL (4.00-5.50); WHITE BLOOD COUNT 13.3 K/uL (4.1-10.2)
[2017-01-09 08:50] LABS: ALKALINE PHOSPHATASE 45 IU/L (3-129); ANION GAP 14 MEQ/L (2-14); CHLORIDE 90 MEQ/L (99-109); GFR ESTIMATE (CALCULATED) 6 mL/min/; GLUCOSE 103 mg/dL (70-99); POTASSIUM 4.7 MEQ/L (3.7-5.4); SAMPLE HEMOLYSIS CHECK 0; SAMPLE ICTERIC CHECK 0; SAMPLE LIPEMIA CHECK 0; SODIUM 135 MEQ/L (136-147); TOTAL BILIRUBIN 0.3 MG/DL (0.0-1.0); UREA NITROGEN (BUN) 51 mg/dL (9-23); VANCOMYCIN, TROUGH 16.1 MCG/ML (10-20)
[2017-01-09 13:33] VITALS: BP 138/72
[2017-01-09 13:43] LABS: POINT-OF-CARE METER ID UU14188577
[2017-01-09 16:04] VITALS: BP 144/70
[2017-01-09 18:43] LABS: POINT-OF-CARE METER ID UU13113675; POINT-OF-CARE USER ID 515036437
[2017-01-09 20:19] VITALS: BP 110/68
[2017-01-09 22:06] LABS: POINT-OF-CARE METER ID UU14117124
[2017-01-10] VITALS (7 sets, daily range): BP systolic 104–151; BP diastolic 56–78
[2017-01-10 06:22] LABS: POINT-OF-CARE METER ID UU14188577
[2017-01-10 06:46] LABS: HEMATOCRIT 35.8 % (38.0-50.0); MCV 90.2 FL (86-99); MEAN PLAT.VOLUME 10.8 uM^3 (9.0-12.4); NRBC (%) 0.3 /100 WBC (0-0); PLATELET COUNT 435 K/uL (156-360); RBC DIS.WIDTH-CV 17.7 % (11.8-14.6); RED BLOOD COUNT 3.97 M/uL (4.00-5.50); WHITE BLOOD COUNT 14.4 K/uL (4.1-10.2)
[2017-01-10 07:11] LABS: ALKALINE PHOSPHATASE 52 IU/L (3-129); ANION GAP 16 MEQ/L (2-14); CHLORIDE 91 MEQ/L (99-109); GLUCOSE 142 mg/dL (70-99); POTASSIUM 5.4 MEQ/L (3.7-5.4); SAMPLE HEMOLYSIS CHECK 0; SAMPLE ICTERIC CHECK 0; SAMPLE LIPEMIA CHECK 0; SODIUM 136 MEQ/L (136-147); UREA NITROGEN (BUN) 34 mg/dL (9-23)
[2017-01-10 07:12] LABS: GFR ESTIMATE (CALCULATED) 8 mL/min/; TOTAL BILIRUBIN 0.4 MG/DL (0.0-1.0)
[2017-01-10 16:41] LABS: POINT-OF-CARE METER ID UU14208753
[2017-01-10 22:03] LABS: POINT-OF-CARE METER ID UU14117124
[2017-01-11 03:21] VITALS: BP 137/63
[2017-01-11 08:52] LABS: HEMATOCRIT 34.2 % (38.0-50.0); MCH 28.5 PG (29.0-34.0); MCHC 31.9 G/DL (30.0-36.0); MCV 89.3 FL (86-99); MEAN PLAT.VOLUME 10.8 uM^3 (9.0-12.4); NRBC (%) 0.3 /100 WBC (0-0); PLATELET COUNT 432 K/uL (156-360); RBC DIS.WIDTH-CV 17.6 % (11.8-14.6); RBC DIS.WIDTH-SD 56.4 % (39-53); RED BLOOD COUNT 3.83 M/uL (4.00-5.50); WHITE BLOOD COUNT 14.4 K/uL (4.1-10.2)
[2017-01-11 09:04] LABS: ALKALINE PHOSPHATASE 51 IU/L (3-129); ANION GAP 18 MEQ/L (2-14); CHLORIDE 85 MEQ/L (99-109); POTASSIUM 4.8 MEQ/L (3.7-5.4); SAMPLE HEMOLYSIS CHECK 0; SAMPLE ICTERIC CHECK 0; SAMPLE LIPEMIA CHECK 0; SODIUM 130 MEQ/L (136-147); VANCOMYCIN, TROUGH 13.9 MCG/ML (10-20)
[2017-01-11 09:06] LABS: GFR ESTIMATE (CALCULATED) 6 mL/min/; GLUCOSE 268 mg/dL (70-99); TOTAL BILIRUBIN 0.3 MG/DL (0.0-1.0); UREA NITROGEN (BUN) 57 mg/dL (9-23)
[2017-01-11 16:36] VITALS: BP 148/71
[2017-01-11 16:41] LABS: POINT-OF-CARE METER ID UU14188577
[2017-01-11 20:51] VITALS: BP 138/63
[2017-01-11 22:15] LABS: POINT-OF-CARE METER ID UU14188577
[2017-01-12 00:17] VITALS: BP 154/64
[2017-01-12 04:33] VITALS: BP 139/64
[2017-01-12 05:30] LABS: HEMATOCRIT 33.9 % (38.0-50.0); MCH 27.3 PG (29.0-34.0); MCHC 30.4 G/DL (30.0-36.0); MCV 89.9 FL (86-99); MEAN PLAT.VOLUME 10.6 uM^3 (9.0-12.4); NRBC (%) 0.2 /100 WBC (0-0); PLATELET COUNT 411 K/uL (156-360); RBC DIS.WIDTH-CV 17.3 % (11.8-14.6); RBC DIS.WIDTH-SD 56.5 % (39-53); RED BLOOD COUNT 3.77 M/uL (4.00-5.50); WHITE BLOOD COUNT 15.3 K/uL (4.1-10.2)
[2017-01-12 05:51] LABS: ALKALINE PHOSPHATASE 51 IU/L (3-129); ANION GAP 16 MEQ/L (2-14); CHLORIDE 92 MEQ/L (99-109); GFR ESTIMATE (CALCULATED) 8 mL/min/; GLUCOSE 164 mg/dL (70-99); POTASSIUM 4.7 MEQ/L (3.7-5.4); SAMPLE HEMOLYSIS CHECK 0; SAMPLE ICTERIC CHECK 0; SAMPLE LIPEMIA CHECK 0; SODIUM 135 MEQ/L (136-147); TOTAL BILIRUBIN 0.3 MG/DL (0.0-1.0); UREA NITROGEN (BUN) 40 mg/dL (9-23)
[2017-01-12 06:29] LABS: POINT-OF-CARE METER ID UU14117124
[2017-01-12 08:43] VITALS: BP 162/77
[2017-01-12 11:44] LABS: POINT-OF-CARE METER ID UU14208753
[2017-01-12 12:30] VITALS: BP 176/79
[2017-01-12 15:30] VITALS: BP 148/65
[2017-01-12] MEDS ORDERED: VANCOMYCIN HCL1 GM IV (16:40)
[2017-01-12 16:43] LABS: POINT-OF-CARE METER ID UU14208753
== END 2017-01-12 21:32 | disposition home or self-care (01) | DRG 871 ==
LOC: EME 11:35 → EDOF 16:06 → 3EAST 16:06 → ENRESERV 16:17 → 3EAST 17:03 → EDOF 17:06 → ENRESERV 17:07 → 3EAST 17:54
PROVIDERS: Hospitalist; Internal Medicine; Internal Medicine Nephrology
PROC: 5A1D60Z (ICD-10-PCS; 2017-01-08)
PROC: 0Y9M0ZZ Drainage of Right Foot, Open Approach (ICD-10-PCS; principal; 2017-01-09)
DX: A41.9 Sepsis, unspecified organism (principal); L02.611 Cutaneous abscess of right foot; L03.115 Cellulitis of right lower limb; M00.9 Pyogenic arthritis, unspecified; E11.610 Type 2 diabetes mellitus with diabetic neuropathic arthropathy; M84.674 Pathological fracture in other disease, right foot; E11.22 Type 2 diabetes mellitus with diabetic chronic kidney disease; I12.0 Hypertensive chronic kidney disease with stage 5 chronic kidney disease or end stage renal disease; N18.6 End stage renal disease; D64.9 Anemia, unspecified; E87.5 Hyperkalemia; E11.42 Type 2 diabetes mellitus with diabetic polyneuropathy; E78.5 Hyperlipidemia, unspecified; G47.33 Obstructive sleep apnea (adult) (pediatric); I48.0 Paroxysmal atrial fibrillation; J44.9 Chronic obstructive pulmonary disease, unspecified; E66.9 Obesity, unspecified; F32.9 Major depressive disorder, single episode, unspecified; G43.909 Migraine, unspecified, not intractable, without status migrainosus; Z96.41 Presence of insulin pump (external) (internal); F17.200 Nicotine dependence, unspecified, uncomplicated; Z91.19 Patient's noncompliance with other medical treatment and regimen; Z90.81 Acquired absence of spleen; Z79.4 Long term (current) use of insulin; Z99.2 Dependence on renal dialysis; I25.2 Old myocardial infarction; Z79.82 Long term (current) use of aspirin; Z68.41 Body mass index [BMI] 40.0-44.9, adult
CPT/HCPCS: 73630; 73718; 80048; 80053; 80069; 80202; 81003; 82948; 83605; 85025; 85027; 85610; 85651; 86140; 87040; 87070; 87075; 87205; 87641; 99281; 99285; J0131; J0690; J1170; J1644; J1815; J2250; J2405; J2543; J2765; J3010; J3370; J7050; S0020

== ENCOUNTER 2017-03-12 09:41 | Inpatient (IN) | payer OTHER ==
[~2017-03-12] VITALS: Ht 177.8 cm; Wt 142.4 kg
[~2017-03-12 09:41] MED LIST changes: +LYRICA150 MG PO; +OXYCODONE HCL10 MG PO
[2017-03-12 11:41] LABS: HEMATOCRIT 35.4 % (38.0-50.0); MCH 28.2 PG (29.0-34.0); MCHC 31.6 G/DL (30.0-36.0); MCV 89.2 FL (86-99); MEAN PLAT.VOLUME 11.3 uM^3 (9.0-12.4); NRBC (%) 0.2 /100 WBC (0-0); PLATELET COUNT 401 K/uL (156-360); RBC DIS.WIDTH-CV 17.1 % (11.8-14.6); RBC DIS.WIDTH-SD 55.9 % (39-53); RED BLOOD COUNT 3.97 M/uL (4.00-5.50); WHITE BLOOD COUNT 12.3 K/uL (4.1-10.2)
[2017-03-12 11:53] LABS: CHLORIDE 91 mEq/L (99-109); SODIUM 132 mEq/L (136-147)
[2017-03-12 11:55] LABS: GLUCOSE 256 mg/dL (70-99)
[2017-03-12 11:57] LABS: ANION GAP 21 MEQ/L (2-14)
[2017-03-12 11:59] LABS: GFR ESTIMATE (CALCULATED) 5 mL/min/
[2017-03-12 12:00] LABS: UREA NITROGEN (BUN) 92 mg/dL (9-23)
[2017-03-12 12:12] LABS: POTASSIUM 6.1 mEq/L (3.7-5.4)
[2017-03-12] MEDS ORDERED: TOUJEO SOL300 UNIT/1 SC (14:12)
[2017-03-12] MEDS ORDERED: HUMALOG100 UNIT/2 SC (14:13)
[2017-03-12 18:12] LABS: POINT-OF-CARE METER ID UU13113774
[2017-03-12 23:06] LABS: POINT-OF-CARE METER ID UU13113774
[2017-03-12 23:27] VITALS: BP 150/81
[2017-03-13 01:31] LABS: POINT-OF-CARE METER ID UU13113774
[2017-03-13 02:03] LABS: POINT-OF-CARE METER ID UU13113774
[2017-03-13 03:01] LABS: POINT-OF-CARE METER ID UU13113774
[2017-03-13 03:41] VITALS: BP 150/82
[2017-03-13 05:30] LABS: POINT-OF-CARE METER ID UU13113774
[2017-03-13 06:55] VITALS: BP 143/84
[2017-03-13 07:44] LABS: MCH 28.1 PG (29.0-34.0); MCHC 32.1 G/DL (30.0-36.0); MCV 87.5 FL (86-99); MEAN PLAT.VOLUME 11.6 uM^3 (9.0-12.4); NRBC (%) 0.1 /100 WBC (0-0); PLATELET COUNT 373 K/uL (156-360); RBC DIS.WIDTH-CV 16.8 % (11.8-14.6); RBC DIS.WIDTH-SD 54.3 % (39-53); RED BLOOD COUNT 3.77 M/uL (4.00-5.50); WHITE BLOOD COUNT 13.4 K/uL (4.1-10.2)
[2017-03-13 07:55] LABS: ANION GAP 20 MEQ/L (2-14); CHLORIDE 89 MEQ/L (99-109); SAMPLE HEMOLYSIS CHECK 0; SAMPLE ICTERIC CHECK 0; SAMPLE LIPEMIA CHECK 0; SODIUM 133 MEQ/L (136-147)
[2017-03-13 07:56] LABS: POTASSIUM 5.1 MEQ/L (3.7-5.4)
[2017-03-13 08:10] LABS: GFR ESTIMATE (CALCULATED) 5 mL/min/; GLUCOSE 130 mg/dL (70-99); UREA NITROGEN (BUN) 100 mg/dL (9-23)
[2017-03-13 11:55] VITALS: BP 141/73
[2017-03-13 12:31] LABS: POINT-OF-CARE METER ID UU13113774
[2017-03-13 16:24] VITALS: BP 166/80
[2017-03-13 16:33] LABS: POINT-OF-CARE METER ID UU13113725
[2017-03-13 22:54] LABS: POINT-OF-CARE METER ID UU13113675
[2017-03-13 23:33] VITALS: BP 189/77
[2017-03-14 04:23] VITALS: BP 141/63
[2017-03-14 05:49] LABS: POINT-OF-CARE METER ID UU13113774
[2017-03-14 07:31] LABS: POINT-OF-CARE METER ID UU13113675
[2017-03-14 07:44] VITALS: BP 188/79
[2017-03-14 10:54] LABS: BASOPHIL COUNT 0.1 K/uL (0-0.1); EOSINOPHIL (%) 3.2 % (0-5); EOSINOPHIL COUNT 0.4 K/uL (0-0.3); HEMATOCRIT 31.1 % (38.0-50.0); IMMATURE GRANULOCYTE (%) 0.4 % (0.0-0.7); INSTRUMENT ABS NEUTROPHIL CT 7.9 K/uL; LYMPHOCYTE COUNT 1.2 K/uL (1.0-2.8); MCH 27.4 PG (29.0-34.0); MCHC 30.9 G/DL (30.0-36.0); MCV 88.6 FL (86-99); MONOCYTE (%) 14.9 % (3-12); MONOCYTE COUNT 1.7 K/uL (0-0.8); NEUTROPHIL (%) 70.2 % (45-76); NEUTROPHIL COUNT 7.9 K/uL (1.8-6.4); PLATELET COUNT 350 K/uL (156-360); RBC DIS.WIDTH-SD 54.7 % (39-53); RED BLOOD COUNT 3.51 M/uL (4.00-5.50); WHITE BLOOD COUNT 11.2 K/uL (4.1-10.2)
[2017-03-14 11:01] LABS: ANION GAP 16 MEQ/L (2-14); CHLORIDE 91 MEQ/L (99-109); POTASSIUM 4.3 MEQ/L (3.7-5.4); SAMPLE HEMOLYSIS CHECK 0; SAMPLE ICTERIC CHECK 0; SAMPLE LIPEMIA CHECK 0; SODIUM 133 MEQ/L (136-147)
[2017-03-14 11:09] LABS: GFR ESTIMATE (CALCULATED) 6 mL/min/; UREA NITROGEN (BUN) 67 mg/dL (9-23)
[2017-03-14 11:15] LABS: GLUCOSE 278 mg/dL (70-99)
[2017-03-14 14:23] LABS: POINT-OF-CARE METER ID UU13113774
[2017-03-14 16:12] LABS: POINT-OF-CARE METER ID UU13113725
[2017-03-14 16:15] VITALS: BP 181/81
[2017-03-14 21:27] LABS: POINT-OF-CARE METER ID UU13113725
[2017-03-15 00:40] VITALS: BP 180/80
[2017-03-15 06:11] LABS: POINT-OF-CARE METER ID UU13113725
[2017-03-15 08:16] LABS: ANION GAP 13 MEQ/L (2-14); CHLORIDE 95 MEQ/L (99-109); POTASSIUM 4.2 MEQ/L (3.7-5.4); SAMPLE HEMOLYSIS CHECK 0; SAMPLE ICTERIC CHECK 0; SAMPLE LIPEMIA CHECK 0; SODIUM 134 MEQ/L (136-147)
[2017-03-15 08:22] LABS: GFR ESTIMATE (CALCULATED) 7 mL/min/; GLUCOSE 243 mg/dL (70-99); UREA NITROGEN (BUN) 57 mg/dL (9-23)
[2017-03-15 10:51] LABS: HEMATOCRIT 30.7 % (38.0-50.0); MCH 27.7 PG (29.0-34.0); MCHC 31.3 G/DL (30.0-36.0); MCV 88.7 FL (86-99); MEAN PLAT.VOLUME 11.9 uM^3 (9.0-12.4); PLATELET COUNT 328 K/uL (156-360); RBC DIS.WIDTH-CV 17.2 % (11.8-14.6); RBC DIS.WIDTH-SD 55.2 % (39-53); RED BLOOD COUNT 3.46 M/uL (4.00-5.50); WHITE BLOOD COUNT 11.5 K/uL (4.1-10.2)
[2017-03-15 12:52] LABS: POINT-OF-CARE METER ID UU13113774
[2017-03-15 15:40] LABS: POINT-OF-CARE METER ID UU13113774
[2017-03-15 16:21] VITALS: BP 165/76
[2017-03-15 21:37] LABS: POINT-OF-CARE METER ID UU13113725
[2017-03-16 00:17] VITALS: BP 161/71
[2017-03-16 06:05] LABS: POINT-OF-CARE METER ID UU13113725
[2017-03-16 06:32] LABS: POINT-OF-CARE METER ID UU13113774
[2017-03-16 06:53] VITALS: BP 150/67
[2017-03-16 11:51] LABS: POINT-OF-CARE METER ID UU13113774
[2017-03-16 14:55] VITALS: BP 146/67
[2017-03-16 17:19] LABS: POINT-OF-CARE METER ID UU13113774
[2017-03-16 21:04] LABS: POINT-OF-CARE METER ID UU13113725
[2017-03-17 00:08] VITALS: BP 140/67
[2017-03-17 05:50] LABS: POINT-OF-CARE METER ID UU13113774
[2017-03-17 08:37] LABS: BASOPHIL COUNT 0.1 K/uL (0-0.1); EOSINOPHIL (%) 6.5 % (0-5); EOSINOPHIL COUNT 0.7 K/uL (0-0.3); HEMATOCRIT 31.1 % (38.0-50.0); IMMATURE GRANULOCYTE (%) 0.3 % (0.0-0.7); INSTRUMENT ABS NEUTROPHIL CT 6.6 K/uL; LYMPHOCYTE COUNT 1.9 K/uL (1.0-2.8); MCH 27.7 PG (29.0-34.0); MCHC 31.8 G/DL (30.0-36.0); MCV 86.9 FL (86-99); MEAN PLAT.VOLUME 11.7 uM^3 (9.0-12.4); MONOCYTE (%) 15.2 % (3-12); MONOCYTE COUNT 1.7 K/uL (0-0.8); NEUTROPHIL (%) 59.9 % (45-76); NEUTROPHIL COUNT 6.6 K/uL (1.8-6.4); PLATELET COUNT 338 K/uL (156-360); RBC DIS.WIDTH-CV 16.3 % (11.8-14.6); RBC DIS.WIDTH-SD 51.9 % (39-53); RED BLOOD COUNT 3.58 M/uL (4.00-5.50)
[2017-03-17 08:46] LABS: ANION GAP 18 MEQ/L (2-14); CHLORIDE 89 MEQ/L (99-109); POTASSIUM 4.7 MEQ/L (3.7-5.4); SAMPLE HEMOLYSIS CHECK 0; SAMPLE ICTERIC CHECK 0; SAMPLE LIPEMIA CHECK 0; SODIUM 134 MEQ/L (136-147)
[2017-03-17 08:52] LABS: GFR ESTIMATE (CALCULATED) 6 mL/min/; GLUCOSE 131 mg/dL (70-99); UREA NITROGEN (BUN) 68 mg/dL (9-23)
[2017-03-17 13:06] LABS: POINT-OF-CARE METER ID UU13113774
[2017-03-18 11:35] LABS: HBSG INDEX 0.16
== END 2017-03-17 15:50 | disposition home or self-care (01) | DRG 579 ==
LOC: EME 09:41 → EDOF 13:14 → 5EAST 13:14 → ENRESERV 13:26 → 5EAST 17:02
PROVIDERS: Internal Medicine; Internal Medicine Nephrology; Physician Assistant
PROC: 0J9Q0ZZ Drainage of Right Foot Subcutaneous Tissue and Fascia, Open Approach (ICD-10-PCS; principal; 2017-03-13)
PROC: 5A1D70Z Performance of Urinary Filtration, Intermittent, Less than 6 Hours Per Day (ICD-10-PCS; principal; 2017-03-13)
PROC: 0Y3M0ZZ Control Bleeding in Right Foot, Open Approach (ICD-10-PCS; 2017-03-16)
PROC: 0HQMXZZ Repair Right Foot Skin, External Approach (ICD-10-PCS; 2017-03-16)
DX: S90.31XA Contusion of right foot, initial encounter (principal); E11.610 Type 2 diabetes mellitus with diabetic neuropathic arthropathy; E11.42 Type 2 diabetes mellitus with diabetic polyneuropathy; G47.33 Obstructive sleep apnea (adult) (pediatric); I12.0 Hypertensive chronic kidney disease with stage 5 chronic kidney disease or end stage renal disease; E11.22 Type 2 diabetes mellitus with diabetic chronic kidney disease; N18.6 End stage renal disease; Z79.4 Long term (current) use of insulin; Z99.2 Dependence on renal dialysis; Z91.19 Patient's noncompliance with other medical treatment and regimen; Z90.81 Acquired absence of spleen; E78.5 Hyperlipidemia, unspecified; E87.1 Hypo-osmolality and hyponatremia; E87.5 Hyperkalemia; I48.1 Persistent atrial fibrillation; D63.1 Anemia in chronic kidney disease; Z87.891 Personal history of nicotine dependence; E66.9 Obesity, unspecified; E87.70 Fluid overload, unspecified; M32.9 Systemic lupus erythematosus, unspecified
CPT/HCPCS: 73718; 80048; 80069; 80202; 82948; 83605; 84132 91; 85025; 85027; 87040; 87340; 93005; 99281; 99285; J0360; J1644; J1815; J2250; J2405; J2543; J3010; J3370; J7050; S0020

== ENCOUNTER 2017-05-29 07:11 | Inpatient (IN) | payer OTHER ==
[~2017-05-29] VITALS: Ht 177.8 cm; Wt 144.7 kg
[~2017-05-29 07:11] MED LIST changes: +HUMALOG100 UNIT/2 SC; -OXYCODONE HCL10 MG PO; +TOUJEO SOL300 UNIT/1 SC; +ZOLOFT100 MG PO; -ZOLOFT50 MG PO
[2017-05-29 08:03] LABS: BASOPHIL (%) 0.7 % (0-1); BASOPHIL COUNT 0.2 K/uL (0-0.1); EOSINOPHIL (%) 0.8 % (0-5); EOSINOPHIL COUNT 0.2 K/uL (0-0.3); HEMATOCRIT 27.6 % (38.0-50.0); HEMOGLOBIN 8.7 G/DL (12.5-16.6); IMMATURE GRANULOCYTE (%) 3.6 % (0.0-0.7); LYMPHOCYTE (%) 8.4 % (15-42); LYMPHOCYTE COUNT 1.7 K/uL (1.0-2.8); MCHC 31.5 G/DL (30.0-36.0); MCV 82.4 FL (86-99); MONOCYTE (%) 13.8 % (3-12); MONOCYTE COUNT 2.8 K/uL (0-0.8); NEUTROPHIL (%) 72.7 % (45-76); NEUTROPHIL COUNT 14.8 K/uL (1.8-6.4); NRBC (%) 0.8 /100 WBC (0-0); PLATELET COUNT 573 K/uL (156-360); RBC DIS.WIDTH-CV 16.2 % (11.8-14.6); RBC DIS.WIDTH-SD 48.1 % (39-53); RED BLOOD COUNT 3.35 M/uL (4.00-5.50); WHITE BLOOD COUNT 20.4 K/uL (4.1-10.2)
[2017-05-29 08:13] LABS: ALBUMIN 3.2 g/dL (3.2-4.8); CHLORIDE 89 mEq/L (99-109); POTASSIUM 4.6 mEq/L (3.7-5.4); SODIUM 133 mEq/L (136-147)
[2017-05-29 08:15] LABS: GLUCOSE 303 mg/dL (70-99)
[2017-05-29 08:16] LABS: TOTAL PROTEIN 6.9 g/dL (6.4-8.3)
[2017-05-29 08:17] LABS: TOTAL BILIRUBIN 0.4 mg/dL (0.0-1.0)
[2017-05-29 08:19] LABS: ALKALINE PHOSPHATASE 111 IU/L (3-129); CREATININE 12.5 mg/dL (0.6-1.3); GFR ESTIMATE (CALCULATED) 4 mL/min/ (58.99-99999)
[2017-05-29 08:20] LABS: UREA NITROGEN (BUN) 84 mg/dL (9-23)
[2017-05-29 08:21] LABS: AST (GOT) 18 IU/L (2-34)
[2017-05-29 08:22] LABS: ALT (GPT) 9 IU/L (3-49)
[2017-05-29 08:23] LABS: LIPASE 150 U/L (1.0-51.0)
[2017-05-29 08:24] LABS: TROP-I INTERPRETATION NEGATIVE; TROPONIN-I 0.04 ng/mL (0.0-0.30)
[2017-05-29 12:14] LABS: PHOSPHORUS 8.5 mg/dL (2.5-4.9)
[2017-05-29 18:30] VITALS: BP 121/56
[2017-05-29 21:00] VITALS: BP 128/64
[2017-05-30 00:41] VITALS: BP 132/60
[2017-05-30 05:53] VITALS: BP 136/72
[2017-05-30 06:02] LABS: HEMATOCRIT 28.3 % (38.0-50.0); HEMOGLOBIN 8.8 G/DL (12.5-16.6); MCHC 31.1 G/DL (30.0-36.0); MCV 83.5 FL (86-99); NRBC (%) 1.6 /100 WBC (0-0); PLATELET COUNT 533 K/uL (156-360); RBC DIS.WIDTH-CV 16.3 % (11.8-14.6); RBC DIS.WIDTH-SD 49.1 % (39-53); RED BLOOD COUNT 3.39 M/uL (4.00-5.50); WHITE BLOOD COUNT 18.4 K/uL (4.1-10.2)
[2017-05-30 06:17] LABS: ALBUMIN 3.2 G/DL (3.2-4.8); CHLORIDE 90 MEQ/L (99-109); GFR ESTIMATE (CALCULATED) 7 mL/min/ (58.99-99999); GLUCOSE 157 mg/dL (70-99); PHOSPHORUS 5.8 mg/dL (2.5-4.9); POTASSIUM 4.7 MEQ/L (3.7-5.4); SODIUM 135 MEQ/L (136-147); UREA NITROGEN (BUN) 56 mg/dL (9-23); VANCOMYCIN, TROUGH 14.6 MCG/ML (10-20)
[2017-05-30 06:38] LABS: CREATININE 8.8 MG/DL (0.6-1.3)
[2017-05-30 07:55] VITALS: BP 108/51
[2017-05-30 11:55] VITALS: BP 104/54
[2017-05-30 15:40] VITALS: BP 11/56
[2017-05-30 20:20] VITALS: BP 112/56
[2017-05-31 00:15] VITALS: BP 127/62
[2017-05-31 04:00] VITALS: BP 129/60
[2017-05-31 08:14] LABS: HEMATOCRIT 27.2 % (38.0-50.0); HEMOGLOBIN 8.4 G/DL (12.5-16.6); MCH 25.5 PG (29.0-34.0); MCHC 30.9 G/DL (30.0-36.0); MCV 82.4 FL (86-99); NRBC (%) 2.2 /100 WBC (0-0); PLATELET COUNT 571 K/uL (156-360); RBC DIS.WIDTH-CV 16.3 % (11.8-14.6); RBC DIS.WIDTH-SD 48.7 % (39-53); WHITE BLOOD COUNT 18.7 K/uL (4.1-10.2)
[2017-05-31 09:29] LABS: ALBUMIN 3.3 G/DL (3.2-4.8); CHLORIDE 88 MEQ/L (99-109); POTASSIUM 4.6 MEQ/L (3.7-5.4); UREA NITROGEN (BUN) 72 mg/dL (9-23)
[2017-05-31 09:30] LABS: CREATININE 10.7 MG/DL (0.6-1.3); GFR ESTIMATE (CALCULATED) 5 mL/min/ (58.99-99999); GLUCOSE 247 mg/dL (70-99); PHOSPHORUS 7.9 mg/dL (2.5-4.9); SODIUM 127 MEQ/L (136-147)
[2017-05-31 09:31] LABS: VANCOMYCIN, TROUGH 27.7 MCG/ML (10-20)
[2017-05-31 10:46] LABS: HEMOGLOBIN A1c (GLYCOHEMOGLOB) 9.9 % (Below 5.7)
[2017-05-31 11:07] LABS: ALKALINE PHOSPHATASE 138 IU/L (3-129); ALT (GPT) 16 IU/L (3-49); AST (GOT) 36 IU/L (2-34); HDL CHOLESTEROL 35 MG/DL (Desirable>=40); LDL CHOLESTEROL 32 mg/dL (Desirable<100); NON-HDL CHOLESTEROL 55 mg/dL (Desirable<160); TOTAL BILIRUBIN 0.3 MG/DL (0.0-1.0); TOTAL CHOLESTEROL 90 mg/dL (Desirable<200); TOTAL PROTEIN 7.1 G/DL (6.4-8.3); TRIGLYCERIDES 113 MG/DL (Normal: <150)
[2017-05-31 13:00] VITALS: BP 122/72
[2017-05-31 18:44] VITALS: BP 124/64
[2017-05-31 20:55] VITALS: BP 110/55
[2017-05-31 23:58] VITALS: BP 111/55
[2017-06-01 03:50] VITALS: BP 125/59
[2017-06-01 05:05] LABS: HEMATOCRIT 28.3 % (38.0-50.0); HEMOGLOBIN 8.8 G/DL (12.5-16.6); MCHC 31.1 G/DL (30.0-36.0); MCV 83.5 FL (86-99); NRBC (%) 3.3 /100 WBC (0-0); PLATELET COUNT 485 K/uL (156-360); RBC DIS.WIDTH-CV 16.5 % (11.8-14.6); RBC DIS.WIDTH-SD 49.5 % (39-53); RED BLOOD COUNT 3.39 M/uL (4.00-5.50); WHITE BLOOD COUNT 14.4 K/uL (4.1-10.2)
[2017-06-01 05:44] LABS: ALBUMIN 3.1 G/DL (3.2-4.8); CHLORIDE 88 MEQ/L (99-109); GFR ESTIMATE (CALCULATED) 8 mL/min/ (58.99-99999); GLUCOSE 249 mg/dL (70-99); PHOSPHORUS 5.4 mg/dL (2.5-4.9); SODIUM 130 MEQ/L (136-147); UREA NITROGEN (BUN) 43 mg/dL (9-23)
[2017-06-01 05:50] LABS: CREATININE 7.9 MG/DL (0.6-1.3)
[2017-06-01] MEDS ORDERED: ALBUTEROL2.5 MG/0.5 AEROSOL (07:00)
[2017-06-01] MEDS ORDERED: LEVEMIR100 UNIT/2 SC (07:01)
[2017-06-01] MEDS ORDERED: PREDNISONE20 MG PO (07:01)
[2017-06-01] MEDS ORDERED: ZOSYN 3.3753.375 GM IV (07:02)
[2017-06-01 08:25] VITALS: BP 136/61
== END 2017-06-01 11:03 | disposition short-term general hospital (02) | DRG 853 ==
LOC: EME 07:11 → 4EAST 11:37 → EDOF 11:37 → ENRESERV 11:40 → 4EAST 18:16 → ENRESERV 05-31 11:52 → 4EAST 05-31 16:39 → 3EAST 05-31 17:10
PROVIDERS: Emergency Medicine; Internal Medicine
PROC: 5A1D70Z Performance of Urinary Filtration, Intermittent, Less than 6 Hours Per Day (ICD-10-PCS; principal; 2017-05-30)
PROC: 0J9Q0ZZ Drainage of Right Foot Subcutaneous Tissue and Fascia, Open Approach (ICD-10-PCS; principal; 2017-05-30)
PROC: 0J9Q0ZZ Drainage of Right Foot Subcutaneous Tissue and Fascia, Open Approach (ICD-10-PCS; 2017-05-31)
DX: A41.9 Sepsis, unspecified organism (principal); L02.611 Cutaneous abscess of right foot; T81.4XXA Infection following a procedure, initial encounter; Q89.01 Asplenia (congenital); E11.69 Type 2 diabetes mellitus with other specified complication; E11.65 Type 2 diabetes mellitus with hyperglycemia; E87.70 Fluid overload, unspecified; E11.610 Type 2 diabetes mellitus with diabetic neuropathic arthropathy; E11.42 Type 2 diabetes mellitus with diabetic polyneuropathy; E11.22 Type 2 diabetes mellitus with diabetic chronic kidney disease; I12.0 Hypertensive chronic kidney disease with stage 5 chronic kidney disease or end stage renal disease; G47.33 Obstructive sleep apnea (adult) (pediatric); E78.5 Hyperlipidemia, unspecified; Z68.41 Body mass index [BMI] 40.0-44.9, adult; D63.8 Anemia in other chronic diseases classified elsewhere; E66.01 Morbid (severe) obesity due to excess calories; E87.1 Hypo-osmolality and hyponatremia; I48.2 Chronic atrial fibrillation; G89.29 Other chronic pain; M86.9 Osteomyelitis, unspecified; N18.6 End stage renal disease; I51.7 Cardiomegaly; R09.02 Hypoxemia; W18.30XA Fall on same level, unspecified, initial encounter; Z87.891 Personal history of nicotine dependence; Z79.4 Long term (current) use of insulin; Z99.2 Dependence on renal dialysis; I25.2 Old myocardial infarction; Z90.81 Acquired absence of spleen; Z83.3 Family history of diabetes mellitus
CPT/HCPCS: 71045; 71275; 73030; 73590; 73630; 73700; 80053; 80061; 80069; 80202; 81003; 82948; 83036; 83605; 83690; 84100; 84484; 85025; 85027; 87040; 87070; 87075; 87077; 87186; 87205; 93005; 93971; 94640 76; 94799; 99281; 99285; J1644; J1756; J1815; J2543; J3370; J7050; J7512

== ENCOUNTER 2017-09-07 13:40 | Inpatient (IN) | payer OTHER ==
[~2017-09-07] VITALS: Ht 177.8 cm; Wt 130.5 kg
[~2017-09-07 13:40] MED LIST changes: +ALBUTEROL2.5 MG/0.5 AEROSOL; +ZOSYN 3.3753.375 GM IV
[2017-09-07 14:33] LABS: HEMATOCRIT 28.4 % (38.0-50.0); MCH 23.3 PG (29.0-34.0); MCHC 31.7 G/DL (30.0-36.0); MCV 73.4 FL (86-99); NRBC (%) 0.3 /100 WBC (0-0); PLATELET COUNT 521 K/uL (156-360); RBC DIS.WIDTH-CV 19.8 % (11.8-14.6); RBC DIS.WIDTH-SD 50.3 % (39-53); RED BLOOD COUNT 3.87 M/uL (4.00-5.50); WHITE BLOOD COUNT 13.6 K/uL (4.1-10.2)
[2017-09-07 14:35] LABS: CHLORIDE 95 mEq/L (99-109); SODIUM 139 mEq/L (136-147)
[2017-09-07 14:36] LABS: GLUCOSE 95 mg/dL (70-99)
[2017-09-07 14:40] LABS: CREATININE 6.7 mg/dL (0.6-1.3); GFR ESTIMATE (CALCULATED) 9 mL/min/ (58.99-99999)
[2017-09-07 14:41] LABS: UREA NITROGEN (BUN) 39 mg/dL (9-23)
[2017-09-07] MEDS ORDERED: GABAPENTIN600 MG PO (16:51)
[2017-09-07] MEDS ORDERED: PERCOCET 7.51 TABLET PO (16:53)
[2017-09-07] MEDS ORDERED: MORPHINE SULFAT15 M1 PO (16:53)
[2017-09-07] MEDS ORDERED: LOVENOX40 MG/0.4 SC (16:53)
[2017-09-07] MEDS ORDERED: TOUJEO SOL300 UNIT/1 SC (16:54)
[2017-09-07 23:53] VITALS: BP 172/68
[2017-09-08 04:49] VITALS: BP 180/70
[2017-09-08 07:40] VITALS: BP 139/70
[2017-09-08 10:55] VITALS: BP 172/68
[2017-09-08 11:20] VITALS: BP 155/75
[2017-09-08 15:43] LABS: BASOPHIL (%) 1.4 % (0-1); BASOPHIL COUNT 0.2 K/uL (0-0.1); EOSINOPHIL (%) 10.6 % (0-5); EOSINOPHIL COUNT 1.3 K/uL (0-0.3); HEMOGLOBIN 8.8 G/DL (12.5-16.6); IMMATURE GRANULOCYTE (%) 0.7 % (0.0-0.7); LYMPHOCYTE (%) 10.8 % (15-42); LYMPHOCYTE COUNT 1.3 K/uL (1.0-2.8); MCH 22.7 PG (29.0-34.0); MCHC 30.3 G/DL (30.0-36.0); MCV 74.9 FL (86-99); MONOCYTE (%) 15.8 % (3-12); MONOCYTE COUNT 1.9 K/uL (0-0.8); NEUTROPHIL (%) 60.7 % (45-76); NEUTROPHIL COUNT 7.4 K/uL (1.8-6.4); NRBC (%) 0.4 /100 WBC (0-0); PLATELET COUNT 541 K/uL (156-360); RBC DIS.WIDTH-CV 20.4 % (11.8-14.6); RBC DIS.WIDTH-SD 52.1 % (39-53); RED BLOOD COUNT 3.87 M/uL (4.00-5.50); WHITE BLOOD COUNT 12.2 K/uL (4.1-10.2)
[2017-09-08 16:06] LABS: INTER. NORMALIZED RATIO 1.3
[2017-09-08 16:09] LABS: ALBUMIN 3.2 G/DL (3.2-4.8); C-REACTIVE PROTEIN 133.1 MG/L (0-10); CHLORIDE 94 MEQ/L (99-109); CREATININE 7.4 MG/DL (0.6-1.3); GFR ESTIMATE (CALCULATED) 8 mL/min/ (58.99-99999); GLUCOSE 80 mg/dL (70-99); PHOSPHORUS 6.9 mg/dL (2.5-4.9); POTASSIUM 4.4 MEQ/L (3.7-5.4); SODIUM 137 MEQ/L (136-147); UREA NITROGEN (BUN) 45 mg/dL (9-23)
[2017-09-08 16:11] LABS: VANCOMYCIN, TROUGH 16.4 MCG/ML (10-20)
[2017-09-08 17:17] LABS: ERTH.SED.RATE > 130 MM/HR (0-20)
[2017-09-08 18:51] LABS: CHLORIDE 97 MEQ/L (99-109); GFR ESTIMATE (CALCULATED) 16 mL/min/ (58.99-99999); GLUCOSE 79 mg/dL (70-99); POTASSIUM 3.7 MEQ/L (3.7-5.4); SODIUM 138 MEQ/L (136-147)
[2017-09-08 18:57] LABS: UREA NITROGEN (BUN) 22 mg/dL (9-23)
[2017-09-08 19:30] LABS: VANCOMYCIN, TROUGH 9.8 MCG/ML (10-20)
[2017-09-08 23:46] VITALS: BP 169/74
[2017-09-09] VITALS: BP 148/74
[2017-09-09 07:39] VITALS: BP 181/72
[2017-09-09 17:04] VITALS: BP 179/69
[2017-09-09 23:23] VITALS: BP 159/70
[2017-09-10 03:20] VITALS: BP 176/81
[2017-09-10 07:22] VITALS: BP 147/71
[2017-09-10 15:48] VITALS: BP 169/79
[2017-09-10 23:11] VITALS: BP 160/74
[2017-09-11 05:40] VITALS: BP 155/85
[2017-09-11 07:22] VITALS: BP 168/79
[2017-09-11 08:31] LABS: HEMATOCRIT 30.8 % (38.0-50.0); HEMOGLOBIN 9.3 G/DL (12.5-16.6); MCH 22.9 PG (29.0-34.0); MCHC 30.2 G/DL (30.0-36.0); MCV 75.7 FL (86-99); NRBC (%) 0.8 /100 WBC (0-0); PLATELET COUNT 548 K/uL (156-360); RBC DIS.WIDTH-SD 53.9 % (39-53); RED BLOOD COUNT 4.07 M/uL (4.00-5.50); WHITE BLOOD COUNT 11.8 K/uL (4.1-10.2)
[2017-09-11 08:53] LABS: ALBUMIN 3.4 G/DL (3.2-4.8); CHLORIDE 92 MEQ/L (99-109); SODIUM 133 MEQ/L (136-147)
[2017-09-11 08:56] LABS: CREATININE 8.2 MG/DL (0.6-1.3); GFR ESTIMATE (CALCULATED) 7 mL/min/ (58.99-99999); GLUCOSE 143 mg/dL (70-99); POTASSIUM 4.8 MEQ/L (3.7-5.4); UREA NITROGEN (BUN) 50 mg/dL (9-23)
[2017-09-11 11:44] LABS: HEPATITIS B SURFACE ANTIGEN Nonreactive
[2017-09-11 12:54] VITALS: BP 170/77
[2017-09-11 16:31] VITALS: BP 162/70
[2017-09-11 20:21] VITALS: BP 160/79
[2017-09-11 23:20] VITALS: BP 139/65
[2017-09-12 04:06] VITALS: BP 164/78
[2017-09-12 06:35] LABS: HEMATOCRIT 28.1 % (38.0-50.0); HEMOGLOBIN 8.5 G/DL (12.5-16.6); MCHC 30.2 G/DL (30.0-36.0); MCV 75.9 FL (86-99); NRBC (%) 0.8 /100 WBC (0-0); PLATELET COUNT 496 K/uL (156-360); RBC DIS.WIDTH-CV 21.2 % (11.8-14.6); RBC DIS.WIDTH-SD 54.4 % (39-53); WHITE BLOOD COUNT 9.7 K/uL (4.1-10.2)
[2017-09-12 08:33] LABS: BASOPHIL (%) 1.6 % (0-1); BASOPHIL COUNT 0.2 K/uL (0-0.1); EOSINOPHIL (%) 7.1 % (0-5); EOSINOPHIL COUNT 0.7 K/uL (0-0.3); HEMATOCRIT 29.3 % (38.0-50.0); IMMATURE GRANULOCYTE (%) 0.5 % (0.0-0.7); LYMPHOCYTE (%) 10.8 % (15-42); LYMPHOCYTE COUNT 1.1 K/uL (1.0-2.8); MCH 23.4 PG (29.0-34.0); MCHC 30.7 G/DL (30.0-36.0); MCV 76.1 FL (86-99); MONOCYTE (%) 14.5 % (3-12); MONOCYTE COUNT 1.5 K/uL (0-0.8); NEUTROPHIL (%) 65.5 % (45-76); NEUTROPHIL COUNT 6.8 K/uL (1.8-6.4); PLATELET COUNT 481 K/uL (156-360); RBC DIS.WIDTH-CV 21.4 % (11.8-14.6); RBC DIS.WIDTH-SD 56.1 % (39-53); RED BLOOD COUNT 3.85 M/uL (4.00-5.50); WHITE BLOOD COUNT 10.3 K/uL (4.1-10.2)
[2017-09-12 08:43] LABS: ALBUMIN 3.4 G/DL (3.2-4.8); CHLORIDE 95 MEQ/L (99-109); POTASSIUM 4.9 MEQ/L (3.7-5.4); SODIUM 134 MEQ/L (136-147)
[2017-09-12 08:53] LABS: CREATININE 6.6 MG/DL (0.6-1.3); GFR ESTIMATE (CALCULATED) 9 mL/min/ (58.99-99999); GLUCOSE 97 mg/dL (70-99); PHOSPHORUS 6.1 mg/dL (2.5-4.9); UREA NITROGEN (BUN) 33 mg/dL (9-23)
[2017-09-12 11:42] VITALS: BP 180/83
[2017-09-12 15:52] VITALS: BP 161/77
[2017-09-12 19:36] VITALS: BP 163/73
[2017-09-12 23:48] VITALS: BP 142/65
[2017-09-13 04:46] VITALS: BP 139/65
[2017-09-13 08:02] LABS: HEMATOCRIT 30.4 % (38.0-50.0); HEMOGLOBIN 9.1 G/DL (12.5-16.6); MCH 22.8 PG (29.0-34.0); MCHC 29.9 G/DL (30.0-36.0); NRBC (%) 0.7 /100 WBC (0-0); PLATELET COUNT 479 K/uL (156-360); RBC DIS.WIDTH-CV 21.2 % (11.8-14.6)
[2017-09-13 08:39] VITALS: BP 178/79
[2017-09-13 10:02] LABS: ALBUMIN 3.3 G/DL (3.2-4.8); CHLORIDE 95 MEQ/L (99-109); GFR ESTIMATE (CALCULATED) 7 mL/min/ (58.99-99999); GLUCOSE 136 mg/dL (70-99); PHOSPHORUS 7.7 mg/dL (2.5-4.9); SODIUM 134 MEQ/L (136-147); UREA NITROGEN (BUN) 47 mg/dL (9-23)
[2017-09-13 10:03] LABS: CREATININE 8.2 MG/DL (0.6-1.3)
[2017-09-13 12:58] VITALS: BP 149/67
[2017-09-13 16:01] VITALS: BP 131/60
[2017-09-13 19:29] VITALS: BP 158/70
[2017-09-13 23:46] VITALS: BP 140/66
[2017-09-14 05:14] VITALS: BP 163/73
[2017-09-14 07:40] VITALS: BP 146/63
[2017-09-14 10:47] LABS: HEMATOCRIT 26.1 % (38.0-50.0); HEMOGLOBIN 8.3 G/DL (12.5-16.6); MCH 23.9 PG (29.0-34.0); MCHC 31.8 G/DL (30.0-36.0); MCV 75.2 FL (86-99); NRBC (%) 0.4 /100 WBC (0-0); PLATELET COUNT 432 K/uL (156-360); RBC DIS.WIDTH-CV 20.9 % (11.8-14.6); RBC DIS.WIDTH-SD 54.1 % (39-53); RED BLOOD COUNT 3.47 M/uL (4.00-5.50); WHITE BLOOD COUNT 13.1 K/uL (4.1-10.2)
[2017-09-14 11:17] VITALS: BP 162/71
[2017-09-14 11:37] VITALS: BP 162/71
[2017-09-14 15:20] VITALS: BP 143/65
[2017-09-14] MEDS ORDERED: FERROUS SULFAT325 MG PO (16:12)
[2017-09-14] MEDS ORDERED: GABAPENTIN100 MG PO (16:13)
[2017-09-14] MEDS ORDERED: CEFTAZIDIME2 GM IV (16:14)
== END 2017-09-14 17:35 | disposition home or self-care (01) | DRG 638 ==
LOC: EME 13:40 → 3EAST 21:09 → EDOF 21:09 → ENRESERV 21:47 → 3EAST 23:14
PROVIDERS: Hospitalist; Internal Medicine; Internal Medicine Nephrology; Podiatrist Foot & Ankle Surgery
PROC: 5A1D70Z Performance of Urinary Filtration, Intermittent, Less than 6 Hours Per Day (ICD-10-PCS; principal; 2017-09-08)
PROC: 0QPGX5Z Removal of External Fixation Device from Right Tibia, External Approach (ICD-10-PCS; 2017-09-12)
DX: E11.69 Type 2 diabetes mellitus with other specified complication (principal); M86.9 Osteomyelitis, unspecified; T84.629A Infection and inflammatory reaction due to internal fixation device of unspecified bone of leg, initial encounter; B96.89 Other specified bacterial agents as the cause of diseases classified elsewhere; Y83.1 Surgical operation with implant of artificial internal device as the cause of abnormal reaction of the patient, or of later complication, without mention of misadventure at the time of the procedure; E11.65 Type 2 diabetes mellitus with hyperglycemia; E11.22 Type 2 diabetes mellitus with diabetic chronic kidney disease; I12.0 Hypertensive chronic kidney disease with stage 5 chronic kidney disease or end stage renal disease; N18.6 End stage renal disease; Z99.2 Dependence on renal dialysis; Z79.4 Long term (current) use of insulin; I48.1 Persistent atrial fibrillation; D63.1 Anemia in chronic kidney disease; E11.610 Type 2 diabetes mellitus with diabetic neuropathic arthropathy; Z86.19 Personal history of other infectious and parasitic diseases; G47.33 Obstructive sleep apnea (adult) (pediatric); E78.5 Hyperlipidemia, unspecified; Z90.81 Acquired absence of spleen; R09.02 Hypoxemia; J81.1 Chronic pulmonary edema; J44.9 Chronic obstructive pulmonary disease, unspecified; E11.40 Type 2 diabetes mellitus with diabetic neuropathy, unspecified; E66.9 Obesity, unspecified; Z68.41 Body mass index [BMI] 40.0-44.9, adult; G89.29 Other chronic pain; F32.9 Major depressive disorder, single episode, unspecified; Z87.891 Personal history of nicotine dependence; Z88.8 Allergy status to other drugs, medicaments and biological substances
CPT/HCPCS: 71045; 73590; 73630; 80048; 80069; 80202; 82948; 83605; 84145 90; 85025; 85027; 85610; 85651; 86140; 87040; 87340; 93005; 94799; 99281; 99285; J1644; J1815; J2405; J2543; J2765; J3010; J3370; J7030; J7050

== ENCOUNTER 2017-09-18 16:49 | Inpatient (IN) | payer OTHER ==
[~2017-09-18] VITALS: Ht 177.8 cm; Wt 131.9 kg
[~2017-09-18 16:49] MED LIST changes: +CEFTAZIDIME2 GM IV; +FERROUS SULFAT325 MG PO; +GABAPENTIN600 MG PO; +LOVENOX40 MG/0.4 SC; +MORPHINE SULFAT15 M1 PO; +PERCOCET 7.51 TABLET PO
[2017-09-18 17:57] VITALS: BP 108/53
[2017-09-18 19:31] LABS: HEMATOCRIT 28.1 % (38.0-50.0); HEMOGLOBIN 8.8 G/DL (12.5-16.6); MCH 23.3 PG (29.0-34.0); MCHC 31.3 G/DL (30.0-36.0); MCV 74.3 FL (86-99); NRBC (%) 0.1 /100 WBC (0-0); PLATELET COUNT 418 K/uL (156-360); RBC DIS.WIDTH-CV 21.2 % (11.8-14.6); RBC DIS.WIDTH-SD 55.1 % (39-53); RED BLOOD COUNT 3.78 M/uL (4.00-5.50); WHITE BLOOD COUNT 29.9 K/uL (4.1-10.2)
[2017-09-18 22:01] VITALS: BP 110/60
[2017-09-18 23:48] VITALS: BP 141/65
[2017-09-19 05:24] VITALS: BP 156/77
[2017-09-19 07:25] LABS: HEMATOCRIT 25.7 % (38.0-50.0); HEMOGLOBIN 8.2 G/DL (12.5-16.6); MCH 23.6 PG (29.0-34.0); MCHC 31.9 G/DL (30.0-36.0); MCV 73.9 FL (86-99); NRBC (%) 0.1 /100 WBC (0-0); PLATELET COUNT 409 K/uL (156-360); RBC DIS.WIDTH-CV 20.9 % (11.8-14.6); RBC DIS.WIDTH-SD 54.4 % (39-53); RED BLOOD COUNT 3.48 M/uL (4.00-5.50); WHITE BLOOD COUNT 22.3 K/uL (4.1-10.2)
[2017-09-19 07:42] LABS: ALBUMIN 2.8 G/DL (3.2-4.8); ALKALINE PHOSPHATASE 149 IU/L (3-129); ALT (GPT) 12 IU/L (3-49); AST (GOT) 33 IU/L (2-34); CHLORIDE 91 MEQ/L (99-109); GFR ESTIMATE (CALCULATED) 10 mL/min/ (58.99-99999); GLUCOSE 124 mg/dL (70-99); POTASSIUM 4.5 MEQ/L (3.7-5.4); SODIUM 133 MEQ/L (136-147); TOTAL BILIRUBIN 0.6 MG/DL (0.0-1.0); TOTAL PROTEIN 6.2 G/DL (6.4-8.3); UREA NITROGEN (BUN) 36 mg/dL (9-23)
[2017-09-19 07:45] LABS: CREATININE 6.3 MG/DL (0.6-1.3)
[2017-09-19 07:46] VITALS: BP 118/56
[2017-09-19 13:20] VITALS: BP 122/83
[2017-09-19 15:45] VITALS: BP 145/4
[2017-09-19 19:45] VITALS: BP 164/70
[2017-09-19 23:41] VITALS: BP 147/68
[2017-09-20 04:11] VITALS: BP 162/74
[2017-09-20 06:10] LABS: BASOPHIL (%) 1.1 % (0-1); BASOPHIL COUNT 0.2 K/uL (0-0.1); EOSINOPHIL (%) 10.6 % (0-5); EOSINOPHIL COUNT 1.5 K/uL (0-0.3); HEMATOCRIT 24.7 % (38.0-50.0); HEMOGLOBIN 7.6 G/DL (12.5-16.6); IMMATURE GRANULOCYTE (%) 0.4 % (0.0-0.7); LYMPHOCYTE (%) 8.5 % (15-42); LYMPHOCYTE COUNT 1.2 K/uL (1.0-2.8); MCH 22.8 PG (29.0-34.0); MCHC 30.8 G/DL (30.0-36.0); MONOCYTE (%) 19.6 % (3-12); MONOCYTE COUNT 2.8 K/uL (0-0.8); NEUTROPHIL (%) 59.8 % (45-76); NEUTROPHIL COUNT 8.5 K/uL (1.8-6.4); NRBC (%) 0.4 /100 WBC (0-0); PLATELET COUNT 422 K/uL (156-360); RBC DIS.WIDTH-CV 20.9 % (11.8-14.6); RBC DIS.WIDTH-SD 54.8 % (39-53); RED BLOOD COUNT 3.34 M/uL (4.00-5.50); WHITE BLOOD COUNT 14.2 K/uL (4.1-10.2)
[2017-09-20 06:47] LABS: ALBUMIN 2.8 G/DL (3.2-4.8); ALKALINE PHOSPHATASE 196 IU/L (3-129); ALT (GPT) 16 IU/L (3-49); AST (GOT) 40 IU/L (2-34); CHLORIDE 91 MEQ/L (99-109); CREATININE 7.8 MG/DL (0.6-1.3); GFR ESTIMATE (CALCULATED) 8 mL/min/ (58.99-99999); GLUCOSE 104 mg/dL (70-99); POTASSIUM 5.2 MEQ/L (3.7-5.4); SODIUM 132 MEQ/L (136-147); TOTAL BILIRUBIN 0.5 MG/DL (0.0-1.0); TOTAL PROTEIN 6.1 G/DL (6.4-8.3); UREA NITROGEN (BUN) 54 mg/dL (9-23); VANCOMYCIN, TROUGH 20.8 MCG/ML (10-20)
[2017-09-20 15:53] VITALS: BP 157/70
[2017-09-20] MEDS ORDERED: CIPROFLOXACIN500 M1 PO (17:05)
== END 2017-09-20 18:36 | disposition home health service (06) | DRG 638 ==
LOC: ENRESERV 16:49 → 3EAST 16:50 → ENRESERV 16:51 → 3EAST 17:30
PROVIDERS: Internal Medicine
PROC: 5A1D70Z Performance of Urinary Filtration, Intermittent, Less than 6 Hours Per Day (ICD-10-PCS; principal; 2017-09-20)
DX: E11.69 Type 2 diabetes mellitus with other specified complication (principal); M86.671 Other chronic osteomyelitis, right ankle and foot; T84.629A Infection and inflammatory reaction due to internal fixation device of unspecified bone of leg, initial encounter; Y83.1 Surgical operation with implant of artificial internal device as the cause of abnormal reaction of the patient, or of later complication, without mention of misadventure at the time of the procedure; E87.1 Hypo-osmolality and hyponatremia; I12.0 Hypertensive chronic kidney disease with stage 5 chronic kidney disease or end stage renal disease; N18.6 End stage renal disease; R09.02 Hypoxemia; E11.22 Type 2 diabetes mellitus with diabetic chronic kidney disease; E11.42 Type 2 diabetes mellitus with diabetic polyneuropathy; E11.610 Type 2 diabetes mellitus with diabetic neuropathic arthropathy; A52.16 Charcot's arthropathy (tabetic); G60.0 Hereditary motor and sensory neuropathy; I48.2 Chronic atrial fibrillation; D63.1 Anemia in chronic kidney disease; G47.33 Obstructive sleep apnea (adult) (pediatric); E78.5 Hyperlipidemia, unspecified; Z99.2 Dependence on renal dialysis; Z87.01 Personal history of pneumonia (recurrent); Z87.891 Personal history of nicotine dependence; Z90.81 Acquired absence of spleen; Z79.4 Long term (current) use of insulin
CPT/HCPCS: 71046; 71275; 73590; 73630; 80053; 80202; 82948; 83605; 85025; 85027; 87040; 87641; 94799; J0692; J0881; J1644; J1815; J3370; J7040; J7050

== ENCOUNTER 2017-11-14 07:37 | Day surgery (SDC) | payer OTHER ==
[~2017-11-14] VITALS: Ht 177.8 cm; Wt 127.0 kg
[~2017-11-14 07:37] MED LIST changes: +CIPROFLOXACIN500 M1 PO
== END 2017-11-14 11:00 | disposition home or self-care (01) ==
LOC: CATH 07:37
PROVIDERS: Surgery
DX: T82.858A Stenosis of other vascular prosthetic devices, implants and grafts, initial encounter (principal); Y83.2 Surgical operation with anastomosis, bypass or graft as the cause of abnormal reaction of the patient, or of later complication, without mention of misadventure at the time of the procedure; I12.0 Hypertensive chronic kidney disease with stage 5 chronic kidney disease or end stage renal disease; E11.22 Type 2 diabetes mellitus with diabetic chronic kidney disease; N18.6 End stage renal disease; Z99.2 Dependence on renal dialysis; Z87.891 Personal history of nicotine dependence; Z79.4 Long term (current) use of insulin; I48.91 Unspecified atrial fibrillation; E78.00 Pure hypercholesterolemia, unspecified; G47.30 Sleep apnea, unspecified; M14.671 Charcot's joint, right ankle and foot
CPT/HCPCS: 82948; 87641; C1725; C1769; C1894; J1644; J2250; J3010

== ENCOUNTER 2017-11-19 11:42 | Inpatient (IN) | payer OTHER ==
[~2017-11-19] VITALS: Ht 177.8 cm; Wt 121.6 kg
[2017-11-19 12:41] LABS: HEMOGLOBIN 12.7 G/DL (12.5-16.6); MCH 25.7 PG (29.0-34.0); MCHC 32.6 G/DL (30.0-36.0); MCV 78.9 FL (86-99); PLATELET COUNT 295 K/uL (156-360); RBC DIS.WIDTH-CV 23.1 % (11.8-14.6); RED BLOOD COUNT 4.94 M/uL (4.00-5.50); WHITE BLOOD COUNT 10.6 K/uL (4.1-10.2)
[2017-11-19 12:48] LABS: CHLORIDE 90 mEq/L (99-109); POTASSIUM 5.4 mEq/L (3.7-5.4); SODIUM 132 mEq/L (136-147)
[2017-11-19 12:50] LABS: GLUCOSE 131 mg/dL (70-99)
[2017-11-19 12:54] LABS: CREATININE 7.1 mg/dL (0.6-1.3); GFR ESTIMATE (CALCULATED) 8 mL/min/ (58.99-99999)
[2017-11-19 12:55] LABS: UREA NITROGEN (BUN) 42 mg/dL (9-23)
[2017-11-19 13:10] VITALS: BP 175/84
[2017-11-19 19:06] LABS: CHLORIDE 102 MEQ/L (99-109); POTASSIUM 4.9 MEQ/L (3.7-5.4); SODIUM 135 MEQ/L (136-147)
[2017-11-19 19:12] LABS: TROP-I INTERPRETATION NEGATIVE; TROPONIN-I < 0.01 ng/mL (0.0-0.30)
[2017-11-19 19:20] LABS: GFR ESTIMATE (CALCULATED) 12 mL/min/ (58.99-99999); UREA NITROGEN (BUN) 41 mg/dL (9-23)
[2017-11-19 19:21] LABS: CREATININE 5.3 MG/DL (0.6-1.3); GLUCOSE 98 mg/dL (70-99)
[2017-11-19 19:23] LABS: HEMATOCRIT 25.4 % (38.0-50.0); MCH 27.3 PG (29.0-34.0); MCHC 32.3 G/DL (30.0-36.0); PLAT.SUFFICIENCY DECREASED; RBC DIS.WIDTH-CV 20.8 % (11.8-14.6); RBC DIS.WIDTH-SD 63.7 % (39-53)
[2017-11-19 19:25] LABS: HEMOGLOBIN 8.2 G/DL (12.5-16.6); MCV 84.7 FL (86-99); PLATELET COUNT 151 K/uL (156-360)
[2017-11-19 19:58] VITALS: BP 111/54
[2017-11-19 23:41] VITALS: BP 118/58
[2017-11-20 03:43] VITALS: BP 157/70
[2017-11-20 08:29] VITALS: BP 157/61
[2017-11-20 09:49] LABS: HEMATOCRIT 26.8 % (38.0-50.0); HEMOGLOBIN 8.8 G/DL (12.5-16.6); MCH 27.1 PG (29.0-34.0); MCHC 32.8 G/DL (30.0-36.0); MCV 82.5 FL (86-99); NRBC (%) 0.2 /100 WBC (0-0); RBC DIS.WIDTH-CV 19.8 % (11.8-14.6); RBC DIS.WIDTH-SD 59.5 % (39-53); RED BLOOD COUNT 3.25 M/uL (4.00-5.50); WHITE BLOOD COUNT 19.5 K/uL (4.1-10.2)
[2017-11-20 09:50] LABS: PLATELET COUNT 268 K/uL (156-360)
[2017-11-20 10:03] LABS: SODIUM 129 MEQ/L (136-147); UREA NITROGEN (BUN) 58 mg/dL (9-23)
[2017-11-20 10:04] LABS: CHLORIDE 91 MEQ/L (99-109); CREATININE 7.5 MG/DL (0.6-1.3); GFR ESTIMATE (CALCULATED) 8 mL/min/ (58.99-99999); GLUCOSE 173 mg/dL (70-99); POTASSIUM 6.7 MEQ/L (3.7-5.4)
[2017-11-20 10:06] LABS: TROP-I INTERPRETATION NEGATIVE; TROPONIN-I 0.03 ng/mL (0.0-0.30)
[2017-11-20 15:46] VITALS: BP 117/54
[2017-11-20 23:30] VITALS: BP 113/54
[2017-11-21 04:18] VITALS: BP 120/55
[2017-11-21 06:34] LABS: BASOPHIL (%) 0.3 % (0-1); BASOPHIL COUNT 0.1 K/uL (0-0.1); EOSINOPHIL (%) 0 % (0-5); HEMATOCRIT 25.8 % (38.0-50.0); HEMOGLOBIN 8.3 G/DL (12.5-16.6); IMMATURE GRANULOCYTE (%) 1.6 % (0.0-0.7); LYMPHOCYTE (%) 2.5 % (15-42); MCH 26.9 PG (29.0-34.0); MCHC 32.2 G/DL (30.0-36.0); MCV 83.8 FL (86-99); MONOCYTE (%) 16.1 % (3-12); MONOCYTE COUNT 6.1 K/uL (0-0.8); NEUTROPHIL (%) 79.5 % (45-76); NEUTROPHIL COUNT 30.1 K/uL (1.8-6.4); NRBC (%) 0.1 /100 WBC (0-0); PLATELET COUNT 312 K/uL (156-360); RBC DIS.WIDTH-CV 20.9 % (11.8-14.6); RBC DIS.WIDTH-SD 63.5 % (39-53); RED BLOOD COUNT 3.08 M/uL (4.00-5.50)
[2017-11-21 06:37] LABS: WHITE BLOOD COUNT 37.9 K/uL (4.1-10.2)
[2017-11-21 06:46] LABS: ALBUMIN 2.3 G/DL (3.2-4.8); ALKALINE PHOSPHATASE 170 IU/L (3-129); ALT (GPT) 50 IU/L (3-49); AST (GOT) 436 IU/L (2-34); CHLORIDE 93 MEQ/L (99-109); GFR ESTIMATE (CALCULATED) 11 mL/min/ (58.99-99999); GLUCOSE 128 mg/dL (70-99); POTASSIUM 5.6 MEQ/L (3.7-5.4); SODIUM 131 MEQ/L (136-147); TOTAL BILIRUBIN 0.6 MG/DL (0.0-1.0); TOTAL PROTEIN 4.7 G/DL (6.4-8.3); UREA NITROGEN (BUN) 34 mg/dL (9-23)
[2017-11-21 06:48] LABS: CREATININE 5.8 MG/DL (0.6-1.3)
[2017-11-21 07:20] VITALS: BP 108/48
[2017-11-21 11:47] VITALS: BP 121/58
[2017-11-21 15:23] VITALS: BP 126/56
[2017-11-21 16:03] LABS: HEMATOCRIT 22.8 % (38.0-50.0); HEMOGLOBIN 7.5 G/DL (12.5-16.6); MCH 27.5 PG (29.0-34.0); MCHC 32.9 G/DL (30.0-36.0); MCV 83.5 FL (86-99); NRBC (%) 0.2 /100 WBC (0-0); RBC DIS.WIDTH-SD 63.3 % (39-53); RED BLOOD COUNT 2.73 M/uL (4.00-5.50); WHITE BLOOD COUNT 39.5 K/uL (4.1-10.2)
[2017-11-21 17:11] LABS: PLAT.SUFFICIENCY ADEQUATE
[2017-11-21 17:12] LABS: PLATELET COUNT 316 K/uL (156-360)
[2017-11-21 19:33] VITALS: BP 121/56
[2017-11-21 23:11] LABS: COMMENTS - BLOOD GASES C+A+; DEVICE NC; O2 FLOW 2 L/MIN; SITE RR; pH 7.33 (7.35-7.45)
[2017-11-21 23:12] LABS: BASE EXCESS 3 mEq/L (-3 to +3); BICARBONATE 29.5 mEq/L (22-26); CARBOXY HGB 2.7 % (0-5); METHEMOGLOBIN 1 % (0-1.5); PCO2 56 mm Hg (35-45); PO2 74 mm Hg (80-100)
[2017-11-22] VITALS (9 sets, daily range): BP systolic 99–116; BP diastolic 49–58
[2017-11-22 05:45] LABS: HEMATOCRIT 22.7 % (38.0-50.0); HEMOGLOBIN 7.5 G/DL (12.5-16.6); MCH 27.7 PG (29.0-34.0); MCV 83.8 FL (86-99); NRBC (%) 0.3 /100 WBC (0-0); RBC DIS.WIDTH-CV 21.2 % (11.8-14.6); RBC DIS.WIDTH-SD 63.7 % (39-53); RED BLOOD COUNT 2.71 M/uL (4.00-5.50)
[2017-11-22 05:50] LABS: WHITE BLOOD COUNT 39.6 K/uL (4.1-10.2)
[2017-11-22 06:04] LABS: CHLORIDE 93 MEQ/L (99-109); GFR ESTIMATE (CALCULATED) 8 mL/min/ (58.99-99999); PHOSPHORUS 9.3 mg/dL (2.5-4.9); POTASSIUM 5.3 MEQ/L (3.7-5.4); SODIUM 134 MEQ/L (136-147)
[2017-11-22 06:08] LABS: CREATININE 7.2 MG/DL (0.6-1.3); GLUCOSE 80 mg/dL (70-99); UREA NITROGEN (BUN) 54 mg/dL (9-23)
[2017-11-22 07:02] LABS: BASOPHIL (%) 0.2 % (0-1); BASOPHIL COUNT 0.1 K/uL (0-0.1); EOSINOPHIL (%) 0 % (0-5); IMMATURE GRANULOCYTE (%) 2.5 % (0.0-0.7); LYMPHOCYTE (%) 1.9 % (15-42); LYMPHOCYTE COUNT 0.8 K/uL (1.0-2.8); MONOCYTE (%) 18.4 % (3-12); MONOCYTE COUNT 7.3 K/uL (0-0.8); NEUTROPHIL COUNT 30.5 K/uL (1.8-6.4); PLATELET COUNT 338 K/uL (156-360)
[2017-11-22 08:57] LABS: ALBUMIN 2.4 G/DL (3.2-4.8); CHLORIDE 92 MEQ/L (99-109); POTASSIUM 5.1 MEQ/L (3.7-5.4); SODIUM 134 MEQ/L (136-147)
[2017-11-22 09:03] LABS: CREATININE 7.2 MG/DL (0.6-1.3); GFR ESTIMATE (CALCULATED) 8 mL/min/ (58.99-99999); PHOSPHORUS 9.2 mg/dL (2.5-4.9); UREA NITROGEN (BUN) 55 mg/dL (9-23)
[2017-11-22 09:12] LABS: GLUCOSE 51 mg/dL (70-99)
[2017-11-23 00:11] VITALS: BP 124/74
[2017-11-23 03:28] VITALS: BP 118/68
[2017-11-23 06:06] LABS: HEMATOCRIT 26.4 % (38.0-50.0); HEMOGLOBIN 8.5 G/DL (12.5-16.6); MCH 26.9 PG (29.0-34.0); MCHC 32.2 G/DL (30.0-36.0); MCV 83.5 FL (86-99); NRBC (%) 0.8 /100 WBC (0-0); PLATELET COUNT 345 K/uL (156-360); RBC DIS.WIDTH-SD 63.6 % (39-53); RED BLOOD COUNT 3.16 M/uL (4.00-5.50)
[2017-11-23 06:11] LABS: WHITE BLOOD COUNT 37.2 K/uL (4.1-10.2)
[2017-11-23 06:14] LABS: CHLORIDE 91 MEQ/L (99-109); GFR ESTIMATE (CALCULATED) 14 mL/min/ (58.99-99999); POTASSIUM 4.6 MEQ/L (3.7-5.4); SODIUM 134 MEQ/L (136-147); UREA NITROGEN (BUN) 36 mg/dL (9-23)
[2017-11-23 06:41] LABS: CREATININE 4.7 MG/DL (0.6-1.3); GLUCOSE 100 mg/dL (70-99)
[2017-11-23 06:43] VITALS: BP 131/61
[2017-11-23 07:15] LABS: ANISOCYTOSIS 2+; BAND NEUTROPHILS 10.6 % (0-8.0); BASOPH.STIPPLING 1+; BURR CELLS 3+; EOSINOPHIL ABS CT 0; LYMPHOCYTES 0.4 % (15.0-45.0); MACROCYTES 2+; MICROCYTOSIS 2+; MONOCYTES 16.4 % (0-9.0); NUCLEATED RBC'S 1.8; OVALOCYTES 1+; PLAT.SUFFICIENCY ADEQUATE; POIKILOCYTOSIS 3+; POLYCHROMASIA 3+; SEG.NEUTROPHILS 72.6 % (46.0-76.0); TARGET CELLS 2+; TOX.VACUOLIZATION 1+; TOXIC GRANULATION 2+
[2017-11-23 11:12] VITALS: BP 115/56
[2017-11-23 15:27] VITALS: BP 129/59
[2017-11-23 20:00] VITALS: BP 117/56
[2017-11-24 03:40] VITALS: BP 131/61
[2017-11-24 05:32] LABS: BASOPHIL (%) 0.2 % (0-1); BASOPHIL COUNT 0.1 K/uL (0-0.1); EOSINOPHIL (%) 0 % (0-5); HEMATOCRIT 24.6 % (38.0-50.0); HEMOGLOBIN 8.1 G/DL (12.5-16.6); IMMATURE GRANULOCYTE (%) 2.1 % (0.0-0.7); LYMPHOCYTE (%) 2.4 % (15-42); LYMPHOCYTE COUNT 0.8 K/uL (1.0-2.8); MCH 27.2 PG (29.0-34.0); MCHC 32.9 G/DL (30.0-36.0); MCV 82.6 FL (86-99); MONOCYTE (%) 19.5 % (3-12); MONOCYTE COUNT 6.3 K/uL (0-0.8); NEUTROPHIL (%) 75.8 % (45-76); NEUTROPHIL COUNT 24.5 K/uL (1.8-6.4); NRBC (%) 3.2 /100 WBC (0-0); PLATELET COUNT 344 K/uL (156-360); RBC DIS.WIDTH-CV 20.9 % (11.8-14.6); RBC DIS.WIDTH-SD 61.3 % (39-53); RED BLOOD COUNT 2.98 M/uL (4.00-5.50); WHITE BLOOD COUNT 32.3 K/uL (4.1-10.2)
[2017-11-24 05:39] LABS: CHLORIDE 93 MEQ/L (99-109); GFR ESTIMATE (CALCULATED) 11 mL/min/ (58.99-99999); POTASSIUM 4.7 MEQ/L (3.7-5.4); SODIUM 136 MEQ/L (136-147); UREA NITROGEN (BUN) 50 mg/dL (9-23)
[2017-11-24 05:41] LABS: CREATININE 5.7 MG/DL (0.6-1.3); GLUCOSE 192 mg/dL (70-99)
[2017-11-24 13:50] VITALS: BP 139/63
[2017-11-24 15:50] VITALS: BP 141/63
[2017-11-24 18:47] VITALS: BP 137/65
[2017-11-25 03:14] VITALS: BP 161/75
[2017-11-25 06:04] LABS: ALBUMIN 2.1 G/DL (3.2-4.8); CHLORIDE 93 MEQ/L (99-109); GLUCOSE 177 mg/dL (70-99); POTASSIUM 4.4 MEQ/L (3.7-5.4); SODIUM 135 MEQ/L (136-147); UREA NITROGEN (BUN) 32 mg/dL (9-23)
[2017-11-25 06:09] LABS: CREATININE 3.8 MG/DL (0.6-1.3); GFR ESTIMATE (CALCULATED) 17 mL/min/ (58.99-99999); PHOSPHORUS 4.4 mg/dL (2.5-4.9)
[2017-11-25 06:50] LABS: HEMATOCRIT 27.9 % (38.0-50.0); HEMOGLOBIN 9.5 G/DL (12.5-16.6); MCH 27.4 PG (29.0-34.0); MCHC 34.1 G/DL (30.0-36.0); MCV 80.4 FL (86-99); NRBC (%) 6.8 /100 WBC (0-0); RBC DIS.WIDTH-CV 20.8 % (11.8-14.6); RBC DIS.WIDTH-SD 60.3 % (39-53); RED BLOOD COUNT 3.47 M/uL (4.00-5.50)
[2017-11-25 07:32] LABS: ABS NEUTROPHIL COUNT 30.1; ANISOCYTOSIS 3+; EOSINOPHIL ABS CT 0; HYPOCHROMASIA 2+; LYMPHOCYTES 4.1 % (15.0-45.0); MACROCYTES 3+; MONOCYTES 18.6 % (0-9.0); NUCLEATED RBC'S 10.5; PLAT.SUFFICIENCY ADEQUATE; PLATELET COUNT 335 K/uL (156-360); POIKILOCYTOSIS 1+; POLYCHROMASIA 3+; SEG.NEUTROPHILS 77.3 % (46.0-76.0); TARGET CELLS 2+
[2017-11-25 09:00] VITALS: BP 176/81
[2017-11-25 09:10] LABS: VANCOMYCIN, TROUGH 9.5 MCG/ML (10-20)
[2017-11-25 12:09] VITALS: BP 154/78
[2017-11-25 17:04] VITALS: BP 183/80
[2017-11-25 19:16] LABS: A/G RATIO 0.7 (1.1-1.8); ALBUMIN 2.1 G/DL (3.4-5.0); GLOBULINS 2.9 G/DL (2.3-3.5); IRON 26 MCG/DL (35-150); TRANSFERRIN (TIBC) 112.4 mg/dL (215-380); TRANSFERRIN SATUR. 23 % (20-55)
[2017-11-25 19:20] LABS: LACTATE DEHYDROGENASE 748 IU/L (20-246)
[2017-11-25 19:46] LABS: FERRITIN > 1500 NG/ML (22-322)
[2017-11-25 19:57] LABS: FOLIC ACID (FOLATE) > 22.0 NG/ML (5.0-22.0)
[2017-11-25 20:00] VITALS: BP 166/74
[2017-11-25 22:57] VITALS: BP 154/69
[2017-11-26 04:00] VITALS: BP 150/72
[2017-11-26 05:48] LABS: HEMATOCRIT 28.8 % (38.0-50.0); HEMOGLOBIN 9.5 G/DL (12.5-16.6); MCH 27.1 PG (29.0-34.0); MCV 82.1 FL (86-99); NRBC (%) 6.9 /100 WBC (0-0); PLATELET COUNT 320 K/uL (156-360); RBC DIS.WIDTH-SD 61.2 % (39-53); RED BLOOD COUNT 3.51 M/uL (4.00-5.50)
[2017-11-26 05:54] LABS: WHITE BLOOD COUNT 32.7 K/uL (4.1-10.2)
[2017-11-26 06:14] LABS: ALBUMIN 2.3 G/DL (3.2-4.8); CHLORIDE 93 MEQ/L (99-109); GFR ESTIMATE (CALCULATED) 13 mL/min/ (58.99-99999); GLUCOSE 160 mg/dL (70-99); PHOSPHORUS 5.4 mg/dL (2.5-4.9); POTASSIUM 4.9 MEQ/L (3.7-5.4); SODIUM 136 MEQ/L (136-147)
[2017-11-26 06:20] LABS: CREATININE 4.8 MG/DL (0.6-1.3); UREA NITROGEN (BUN) 52 mg/dL (9-23)
[2017-11-26 06:55] LABS: ABS NEUTROPHIL COUNT 26.7; ANISOCYTOSIS 2+; BAND NEUTROPHILS 0.9 % (0-8.0); BASOPHILS 0.4 %; BURR CELLS 2+; EOSINOPHIL ABS CT 0; HYPOCHROMASIA 1+; LYMPHOCYTES 3.5 % (15.0-45.0); MACROCYTES 2+; METAMYELOCYTES 0.9 %; MONOCYTES 13.7 % (0-9.0); NUCLEATED RBC'S 12.8; PLAT.SUFFICIENCY ADEQUATE; POIKILOCYTOSIS 2+; POLYCHROMASIA 1+; SEG.NEUTROPHILS 80.6 % (46.0-76.0); TARGET CELLS 2+
[2017-11-26 07:25] VITALS: BP 171/79
[2017-11-26 07:33] LABS: INTER. NORMALIZED RATIO 2.1
[2017-11-26 07:34] LABS: ALKALINE PHOSPHATASE 234 IU/L (3-129); ALT (GPT) < 3 IU/L (3-49); AST (GOT) 31 IU/L (2-34)
[2017-11-26 07:36] LABS: PTT 35.2 SEC (25-37)
[2017-11-26 09:32] LABS: CARCINOEMBR.ANTIGEN 599.8 NG/ML
[2017-11-26 11:08] VITALS: BP 167/78
[2017-11-26 15:27] VITALS: BP 152/72
[2017-11-26 19:45] VITALS: BP 148/71
[2017-11-27 03:47] VITALS: BP 136/75
[2017-11-27 06:26] LABS: INTER. NORMALIZED RATIO 1.3
[2017-11-27 06:29] LABS: PTT 29.9 SEC (25-37)
[2017-11-27 06:34] LABS: HEMATOCRIT 26.7 % (38.0-50.0); HEMOGLOBIN 8.8 G/DL (12.5-16.6); MCH 27.1 PG (29.0-34.0); MCV 82.2 FL (86-99); NRBC (%) 5.3 /100 WBC (0-0); PLATELET COUNT 370 K/uL (156-360); RBC DIS.WIDTH-SD 61.9 % (39-53); RED BLOOD COUNT 3.25 M/uL (4.00-5.50)
[2017-11-27 06:40] LABS: WHITE BLOOD COUNT 31.8 K/uL (4.1-10.2)
[2017-11-27 06:47] LABS: ALBUMIN 2.3 G/DL (3.2-4.8); CHLORIDE 91 MEQ/L (99-109); GFR ESTIMATE (CALCULATED) 11 mL/min/ (58.99-99999); GLUCOSE 152 mg/dL (70-99); PHOSPHORUS 6.7 mg/dL (2.5-4.9); POTASSIUM 5.4 MEQ/L (3.7-5.4); SODIUM 135 MEQ/L (136-147); UREA NITROGEN (BUN) 70 mg/dL (9-23)
[2017-11-27 06:49] LABS: CREATININE 5.8 MG/DL (0.6-1.3)
[2017-11-27 07:04] LABS: ALBUMIN 2.3 G/DL (3.2-4.8); ALKALINE PHOSPHATASE 237 IU/L (3-129); AST (GOT) 23 IU/L (2-34); CHLORIDE 92 MEQ/L (99-109); CREATININE 5.9 MG/DL (0.6-1.3); GFR ESTIMATE (CALCULATED) 10 mL/min/ (58.99-99999); GLUCOSE 153 mg/dL (70-99); POTASSIUM 5.4 MEQ/L (3.7-5.4); SODIUM 135 MEQ/L (136-147); UREA NITROGEN (BUN) 70 mg/dL (9-23)
[2017-11-27 07:05] LABS: ALT (GPT) < 3 IU/L (3-49); TOTAL BILIRUBIN 1.2 MG/DL (0.0-1.0); VANCOMYCIN, TROUGH 17.4 MCG/ML (10-20)
[2017-11-27 07:18] LABS: ABS NEUTROPHIL COUNT 26.8; ANISOCYTOSIS 3+; EOSINOPHIL ABS CT 0; HYPOCHROMASIA 1+; LYMPHOCYTES 2.6 % (15.0-45.0); MACROCYTES 3+; METAMYELOCYTES 1.7 %; MONOCYTES 9.1 % (0-9.0); MYELOCYTES 2.2 %; NUCLEATED RBC'S 7.4; PLAT.SUFFICIENCY INCREASED; POIKILOCYTOSIS 3+; POLYCHROMASIA 1+; SEG.NEUTROPHILS 84.4 % (46.0-76.0); TARGET CELLS 1+
[2017-11-27 08:07] VITALS: BP 141/65
[2017-11-27 12:33] LABS: ALBUMIN 2.05 G/DL (3.6-4.9); ALPHA-1 GLOBULIN 0.76 G/DL (0.15-0.40); ALPHA-2 GLOBULIN 0.69 G/DL (0.45-0.85); BETA-GLOBULIN 0.74 G/DL (0.65-1.15); GAMMA-GLOBULIN 0.77 G/DL (0.60-1.35)
[2017-11-27 16:00] LABS: HEMATOCRIT 28.7 % (38.0-50.0); HEMOGLOBIN 9.3 G/DL (12.5-16.6); MCH 26.8 PG (29.0-34.0); MCHC 32.4 G/DL (30.0-36.0); MCV 82.7 FL (86-99); NRBC (%) 5.5 /100 WBC (0-0); PLATELET COUNT 361 K/uL (156-360); RBC DIS.WIDTH-CV 21.2 % (11.8-14.6); RBC DIS.WIDTH-SD 62.4 % (39-53); RED BLOOD COUNT 3.47 M/uL (4.00-5.50); WHITE BLOOD COUNT 30.5 K/uL (4.1-10.2)
[2017-11-27 16:29] LABS: ABS NEUTROPHIL COUNT 27.2; ANISOCYTOSIS 3+; BAND NEUTROPHILS 0.9 % (0-8.0); BASOPH.STIPPLING 1+; EOSINOPHIL ABS CT 0; HYPOCHROMASIA 1+; LYMPHOCYTES 2.6 % (15.0-45.0); MACROCYTES 3+; METAMYELOCYTES 0.9 %; MICROCYTOSIS 2+; MONOCYTES 6.5 % (0-9.0); MYELOCYTES 0.9 %; PLAT.SUFFICIENCY INCREASED; POIKILOCYTOSIS 3+; POLYCHROMASIA 3+; SEG.NEUTROPHILS 88.2 % (46.0-76.0); TARGET CELLS 2+
[2017-11-27 19:50] VITALS: BP 156/77
[2017-11-28 02:43] VITALS: BP 140/69
[2017-11-28 05:15] LABS: HEMATOCRIT 27.9 % (38.0-50.0); HEMOGLOBIN 8.8 G/DL (12.5-16.6); MCHC 31.5 G/DL (30.0-36.0); MCV 85.6 FL (86-99); NRBC (%) 5.7 /100 WBC (0-0); PLATELET COUNT 324 K/uL (156-360); RBC DIS.WIDTH-CV 21.7 % (11.8-14.6); RBC DIS.WIDTH-SD 65.9 % (39-53); RED BLOOD COUNT 3.26 M/uL (4.00-5.50); WHITE BLOOD COUNT 26.3 K/uL (4.1-10.2)
[2017-11-28 06:18] LABS: BAND NEUTROPHILS 1.8 % (0-8.0); EOSINOPHIL ABS CT 0; LYMPHOCYTES 4.5 % (15.0-45.0); METAMYELOCYTES 1.8 %; MONOCYTES 6.2 % (0-9.0); NUCLEATED RBC'S 12.5; SEG.NEUTROPHILS 85.7 % (46.0-76.0)
[2017-11-28 07:48] LABS: ALBUMIN 2.2 G/DL (3.2-4.8); ALKALINE PHOSPHATASE 213 IU/L (3-129); ALT (GPT) < 3 IU/L (3-49); AST (GOT) 23 IU/L (2-34); CHLORIDE 94 MEQ/L (99-109); CREATININE 4.2 MG/DL (0.6-1.3); GFR ESTIMATE (CALCULATED) 16 mL/min/ (58.99-99999); GLUCOSE 180 mg/dL (70-99); PHOSPHORUS 5.1 mg/dL (2.5-4.9); POTASSIUM 4.6 MEQ/L (3.7-5.4); SODIUM 133 MEQ/L (136-147); TOTAL BILIRUBIN 1.2 MG/DL (0.0-1.0); TOTAL PROTEIN 5.2 G/DL (6.4-8.3); UREA NITROGEN (BUN) 44 mg/dL (9-23)
[2017-11-28 08:30] VITALS: BP 161/70
[2017-11-28 12:09] VITALS: BP 151/66
[2017-11-28 15:33] VITALS: BP 137/64
[2017-11-28 19:54] VITALS: BP 163/73
[2017-11-29 00:45] VITALS: BP 159/70
[2017-11-29 03:52] VITALS: BP 125/60
[2017-11-29 09:01] LABS: HEMATOCRIT 28.8 % (38.0-50.0); MCH 26.7 PG (29.0-34.0); MCHC 31.3 G/DL (30.0-36.0); MCV 85.5 FL (86-99); NRBC (%) 5.6 /100 WBC (0-0); PLATELET COUNT 421 K/uL (156-360); RBC DIS.WIDTH-CV 21.3 % (11.8-14.6); RBC DIS.WIDTH-SD 64.1 % (39-53); RED BLOOD COUNT 3.37 M/uL (4.00-5.50); WHITE BLOOD COUNT 25.2 K/uL (4.1-10.2)
[2017-11-29 09:18] LABS: ALBUMIN 2.5 G/DL (3.2-4.8); ALKALINE PHOSPHATASE 202 IU/L (3-129); ALT (GPT) 3 IU/L (3-49); AST (GOT) 19 IU/L (2-34); CHLORIDE 92 MEQ/L (99-109); GLUCOSE 167 mg/dL (70-99); POTASSIUM 4.6 MEQ/L (3.7-5.4); SODIUM 132 MEQ/L (136-147); TOTAL BILIRUBIN 1.1 MG/DL (0.0-1.0); UREA NITROGEN (BUN) 59 mg/dL (9-23); VANCOMYCIN, TROUGH 23.9 MCG/ML (10-20)
[2017-11-29 09:25] LABS: GFR ESTIMATE (CALCULATED) 13 mL/min/ (58.99-99999)
[2017-11-29 09:33] LABS: ABS NEUTROPHIL COUNT 20.3; ATYPICAL LYMPHOCYTE 0.9 %; BAND NEUTROPHILS 9.7 % (0-8.0); BASOPHILS 0.9 %; EOSINOPHIL ABS CT 0.2; EOSINOPHILS 0.9 % (0-5.0); LYMPHOCYTES 5.3 % (15.0-45.0); METAMYELOCYTES 1.8 %; MONOCYTES 9.7 % (0-9.0); NUCLEATED RBC'S 7.1; SEG.NEUTROPHILS 70.8 % (46.0-76.0)
[2017-11-29 10:41] LABS: ANISOCYTOSIS 2+; HYPOCHROMASIA 2+; MACROCYTES 2+; OVALOCYTES 1+; POIKILOCYTOSIS 2+; POLYCHROMASIA 2+; TARGET CELLS 1+
[2017-11-29 10:42] LABS: SCHISTOCYTES OCC
[2017-11-29 13:18] LABS: CLINICAL INFORMATION NOT PROVIDED; NUMBER OF MARKERS 22; SPECIMEN VIABILITY 98
[2017-11-29 15:00] VITALS: BP 157/65
[2017-11-29 19:10] VITALS: BP 170/77
[2017-11-30] VITALS (7 sets, daily range): BP systolic 146–174; BP diastolic 66–79
[2017-11-30 05:37] LABS: BASOPHIL (%) 0.3 % (0-1); BASOPHIL COUNT 0.1 K/uL (0-0.1); EOSINOPHIL (%) 1.1 % (0-5); EOSINOPHIL COUNT 0.3 K/uL (0-0.3); HEMATOCRIT 28.3 % (38.0-50.0); HEMOGLOBIN 8.9 G/DL (12.5-16.6); IMMATURE GRANULOCYTE (%) 4.1 % (0.0-0.7); LYMPHOCYTE (%) 2.2 % (15-42); LYMPHOCYTE COUNT 0.5 K/uL (1.0-2.8); MCH 27.1 PG (29.0-34.0); MCHC 31.4 G/DL (30.0-36.0); MCV 86.3 FL (86-99); MONOCYTE (%) 14.5 % (3-12); MONOCYTE COUNT 3.5 K/uL (0-0.8); NEUTROPHIL (%) 77.8 % (45-76); NEUTROPHIL COUNT 18.7 K/uL (1.8-6.4); PLATELET COUNT 449 K/uL (156-360); RBC DIS.WIDTH-CV 22.2 % (11.8-14.6); RBC DIS.WIDTH-SD 66.4 % (39-53); RED BLOOD COUNT 3.28 M/uL (4.00-5.50)
[2017-11-30 06:29] LABS: ALBUMIN 2.1 G/DL (3.2-4.8); ALKALINE PHOSPHATASE 232 IU/L (3-129); ALT (GPT) 4 IU/L (3-49); AST (GOT) 19 IU/L (2-34); CHLORIDE 92 MEQ/L (99-109); CREATININE 4.1 MG/DL (0.6-1.3); GFR ESTIMATE (CALCULATED) 16 mL/min/ (58.99-99999); GLUCOSE 169 mg/dL (70-99); POTASSIUM 4.7 MEQ/L (3.7-5.4); SODIUM 134 MEQ/L (136-147); TOTAL PROTEIN 5.1 G/DL (6.4-8.3); UREA NITROGEN (BUN) 42 mg/dL (9-23)
[2017-12-01 03:18] VITALS: BP 139/63
[2017-12-01 07:10] VITALS: BP 161/74
[2017-12-01 08:26] LABS: ALBUMIN 2.4 G/DL (3.2-4.8); ALKALINE PHOSPHATASE 217 IU/L (3-129); ALT (GPT) 3 IU/L (3-49); AST (GOT) 15 IU/L (2-34); CHLORIDE 92 MEQ/L (99-109); GLUCOSE 230 mg/dL (70-99); POTASSIUM 4.2 MEQ/L (3.7-5.4); SODIUM 132 MEQ/L (136-147); TOTAL BILIRUBIN 0.8 MG/DL (0.0-1.0); UREA NITROGEN (BUN) 57 mg/dL (9-23); VANCOMYCIN, TROUGH 25.7 MCG/ML (10-20)
[2017-12-01 08:36] LABS: CREATININE 5.5 MG/DL (0.6-1.3); GFR ESTIMATE (CALCULATED) 11 mL/min/ (58.99-99999); TOTAL PROTEIN 6.1 G/DL (6.4-8.3)
[2017-12-01 09:30] LABS: BASOPHIL (%) 0.3 % (0-1); BASOPHIL COUNT 0.1 K/uL (0-0.1); EOSINOPHIL (%) 2.3 % (0-5); EOSINOPHIL COUNT 0.5 K/uL (0-0.3); HEMATOCRIT 27.8 % (38.0-50.0); HEMOGLOBIN 8.7 G/DL (12.5-16.6); IMMATURE GRANULOCYTE (%) 3.3 % (0.0-0.7); LYMPHOCYTE (%) 3.7 % (15-42); LYMPHOCYTE COUNT 0.8 K/uL (1.0-2.8); MCH 26.8 PG (29.0-34.0); MCHC 31.3 G/DL (30.0-36.0); MCV 85.5 FL (86-99); MONOCYTE (%) 13.7 % (3-12); MONOCYTE COUNT 2.9 K/uL (0-0.8); NEUTROPHIL (%) 76.7 % (45-76); NEUTROPHIL COUNT 16.4 K/uL (1.8-6.4); NRBC (%) 3.4 /100 WBC (0-0); RBC DIS.WIDTH-CV 21.8 % (11.8-14.6); RBC DIS.WIDTH-SD 65.3 % (39-53); RED BLOOD COUNT 3.25 M/uL (4.00-5.50); WHITE BLOOD COUNT 21.4 K/uL (4.1-10.2)
[2017-12-01 09:57] LABS: PLAT.SUFFICIENCY INCREASED; PLATELET COUNT 490 K/uL (156-360)
[2017-12-01 13:00] VITALS: BP 174/77
[2017-12-01 16:36] VITALS: BP 168/74
[2017-12-01 18:55] VITALS: BP 156/70
[2017-12-01 23:09] VITALS: BP 157/70
[2017-12-02 03:12] VITALS: BP 152/67
[2017-12-02 06:37] LABS: VANCOMYCIN, TROUGH 16.9 MCG/ML (10-20)
[2017-12-02 08:03] VITALS: BP 155/73
[2017-12-02 09:35] LABS: HEMATOCRIT 28.2 % (38.0-50.0); HEMOGLOBIN 8.6 G/DL (12.5-16.6); MCH 26.5 PG (29.0-34.0); MCHC 30.5 G/DL (30.0-36.0); MCV 86.8 FL (86-99); NRBC (%) 2.1 /100 WBC (0-0); PLATELET COUNT 469 K/uL (156-360); RBC DIS.WIDTH-SD 67.2 % (39-53); RED BLOOD COUNT 3.25 M/uL (4.00-5.50); WHITE BLOOD COUNT 24.3 K/uL (4.1-10.2)
[2017-12-02 10:41] LABS: CHLORIDE 95 MEQ/L (99-109); GFR ESTIMATE (CALCULATED) 16 mL/min/ (58.99-99999); GLUCOSE 200 mg/dL (70-99); POTASSIUM 4.2 MEQ/L (3.7-5.4); SODIUM 134 MEQ/L (136-147); UREA NITROGEN (BUN) 36 mg/dL (9-23)
[2017-12-02 11:45] VITALS: BP 149/78
[2017-12-02 16:22] VITALS: BP 155/71
[2017-12-03 00:14] VITALS: BP 159/72
[2017-12-03 04:11] VITALS: BP 165/78
[2017-12-03 06:10] LABS: HEMATOCRIT 28.8 % (38.0-50.0); HEMOGLOBIN 8.8 G/DL (12.5-16.6); MCH 26.1 PG (29.0-34.0); MCHC 30.6 G/DL (30.0-36.0); MCV 85.5 FL (86-99); NRBC (%) 1.4 /100 WBC (0-0); PLATELET COUNT 530 K/uL (156-360); RBC DIS.WIDTH-CV 21.2 % (11.8-14.6); RBC DIS.WIDTH-SD 64.3 % (39-53); RED BLOOD COUNT 3.37 M/uL (4.00-5.50); WHITE BLOOD COUNT 22.1 K/uL (4.1-10.2)
[2017-12-03 06:51] LABS: CHLORIDE 94 MEQ/L (99-109); GFR ESTIMATE (CALCULATED) 11 mL/min/ (58.99-99999); GLUCOSE 124 mg/dL (70-99); POTASSIUM 4.6 MEQ/L (3.7-5.4); SODIUM 134 MEQ/L (136-147); UREA NITROGEN (BUN) 45 mg/dL (9-23)
[2017-12-03 06:58] LABS: CREATININE 5.5 MG/DL (0.6-1.3)
[2017-12-03 07:20] VITALS: BP 188/76
[2017-12-03 10:47] VITALS: BP 168/75
[2017-12-03 15:46] VITALS: BP 178/84
[2017-12-03 20:00] VITALS: BP 177/88
[2017-12-04 00:30] VITALS: BP 164/84
[2017-12-04 06:13] LABS: BASOPHIL (%) 0.3 % (0-1); BASOPHIL COUNT 0.1 K/uL (0-0.1); EOSINOPHIL (%) 2.8 % (0-5); EOSINOPHIL COUNT 0.6 K/uL (0-0.3); HEMATOCRIT 29.2 % (38.0-50.0); HEMOGLOBIN 9.1 G/DL (12.5-16.6); IMMATURE GRANULOCYTE (%) 2.1 % (0.0-0.7); LYMPHOCYTE (%) 5.8 % (15-42); LYMPHOCYTE COUNT 1.3 K/uL (1.0-2.8); MCH 26.5 PG (29.0-34.0); MCHC 31.2 G/DL (30.0-36.0); MCV 85.1 FL (86-99); MONOCYTE (%) 14.7 % (3-12); MONOCYTE COUNT 3.2 K/uL (0-0.8); NEUTROPHIL (%) 74.3 % (45-76); NEUTROPHIL COUNT 16.1 K/uL (1.8-6.4); NRBC (%) 0.8 /100 WBC (0-0); PLATELET COUNT 512 K/uL (156-360); RBC DIS.WIDTH-CV 20.5 % (11.8-14.6); RBC DIS.WIDTH-SD 63.1 % (39-53); RED BLOOD COUNT 3.43 M/uL (4.00-5.50); WHITE BLOOD COUNT 21.6 K/uL (4.1-10.2)
[2017-12-04 06:31] LABS: ALBUMIN 2.5 G/DL (3.2-4.8); ALKALINE PHOSPHATASE 260 IU/L (3-129); ALT (GPT) 3 IU/L (3-49); AST (GOT) 19 IU/L (2-34); CHLORIDE 94 MEQ/L (99-109); GFR ESTIMATE (CALCULATED) 9 mL/min/ (58.99-99999); POTASSIUM 4.9 MEQ/L (3.7-5.4); SODIUM 135 MEQ/L (136-147); TOTAL BILIRUBIN 0.7 MG/DL (0.0-1.0); TOTAL PROTEIN 5.7 G/DL (6.4-8.3); UREA NITROGEN (BUN) 57 mg/dL (9-23)
[2017-12-04 06:40] LABS: CREATININE 6.5 MG/DL (0.6-1.3); GLUCOSE 85 mg/dL (70-99)
[2017-12-04 07:05] VITALS: BP 195/83
[2017-12-04 12:05] VITALS: BP 174/78
[2017-12-04 15:55] VITALS: BP 171/72
[2017-12-04 19:00] VITALS: BP 164/90
[2017-12-05 06:58] LABS: ALBUMIN 2.4 G/DL (3.2-4.8); ALKALINE PHOSPHATASE 236 IU/L (3-129); ALT (GPT) 5 IU/L (3-49); AST (GOT) 27 IU/L (2-34); CHLORIDE 95 MEQ/L (99-109); GFR ESTIMATE (CALCULATED) 14 mL/min/ (58.99-99999); GLUCOSE 88 mg/dL (70-99); POTASSIUM 4.9 MEQ/L (3.7-5.4); SODIUM 132 MEQ/L (136-147); TOTAL BILIRUBIN 0.7 MG/DL (0.0-1.0); TOTAL PROTEIN 5.6 G/DL (6.4-8.3); UREA NITROGEN (BUN) 38 mg/dL (9-23)
[2017-12-05 07:01] LABS: CREATININE 4.5 MG/DL (0.6-1.3)
[2017-12-05 07:32] VITALS: BP 179/86
[2017-12-05] MEDS ORDERED: AMLODIPINE BES2.5 MG PO (10:36)
[2017-12-05] MEDS ORDERED: DOCUSATE SODIU100 MG PO (10:37)
[2017-12-05 11:20] VITALS: BP 162/68
[2017-12-05 12:09] LABS: HEMATOCRIT 29.5 % (38.0-50.0); HEMOGLOBIN 9.2 G/DL (12.5-16.6); MCH 26.5 PG (29.0-34.0); MCHC 31.2 G/DL (30.0-36.0); NRBC (%) 0.4 /100 WBC (0-0); PLATELET COUNT 488 K/uL (156-360); RBC DIS.WIDTH-CV 20.5 % (11.8-14.6); RBC DIS.WIDTH-SD 62.4 % (39-53); RED BLOOD COUNT 3.47 M/uL (4.00-5.50); WHITE BLOOD COUNT 20.2 K/uL (4.1-10.2)
[2017-12-05 16:27] VITALS: BP 153/70
== END 2017-12-05 18:45 | DRG 617 ==
LOC: SDC 11:42 → 3EAST 18:47 → 4EAST 18:47 → 2SOUTH 18:47 → ENRESERV 18:49 → CANRESERV 18:49 → ENRESERV 19:25 → 3EAST 19:50 → ENRESERV 11-21 23:08 → 3EAST 11-21 23:46 → 4EAST 11-22 00:04 → ENRESERV 11-30 11:37 → CANRESERV 11-30 13:14 → ENRESERV 11-30 13:14 → 5EAST 11-30 15:37
PROVIDERS: Hospitalist; Internal Medicine; Internal Medicine Infectious Disease; Internal Medicine Medical Oncology; Internal Medicine Nephrology; Physician Assistant Surgical; Radiology Diagnostic Radiology; Surgery
PROC: 0Y6H0Z1 Detachment at Right Lower Leg, High, Open Approach (ICD-10-PCS; principal; 2017-11-19)
PROC: 30233N1 Transfusion of Nonautologous Red Blood Cells into Peripheral Vein, Percutaneous Approach (ICD-10-PCS; principal; 2017-11-19)
PROC: 30233K1 Transfusion of Nonautologous Frozen Plasma into Peripheral Vein, Percutaneous Approach (ICD-10-PCS; principal; 2017-11-19)
PROC: 3E0T3BZ Introduction of Anesthetic Agent into Peripheral Nerves and Plexi, Percutaneous Approach (ICD-10-PCS; principal; 2017-11-19)
PROC: 5A1D70Z Performance of Urinary Filtration, Intermittent, Less than 6 Hours Per Day (ICD-10-PCS; 2017-11-20)
PROC: 0FB03ZX Excision of Liver, Percutaneous Approach, Diagnostic (ICD-10-PCS; 2017-11-27)
PROC: 0DBL8ZX Excision of Transverse Colon, Via Natural or Artificial Opening Endoscopic, Diagnostic (ICD-10-PCS; 2017-11-29)
DX: E11.69 Type 2 diabetes mellitus with other specified complication (principal); M86.68 Other chronic osteomyelitis, other site; E11.610 Type 2 diabetes mellitus with diabetic neuropathic arthropathy; C18.3 Malignant neoplasm of hepatic flexure; C78.7 Secondary malignant neoplasm of liver and intrahepatic bile duct; E87.5 Hyperkalemia; R41.82 Altered mental status, unspecified; T40.2X5A Adverse effect of other opioids, initial encounter; R19.7 Diarrhea, unspecified; E11.649 Type 2 diabetes mellitus with hypoglycemia without coma; G54.6 Phantom limb syndrome with pain; K59.00 Constipation, unspecified; I12.0 Hypertensive chronic kidney disease with stage 5 chronic kidney disease or end stage renal disease; E11.22 Type 2 diabetes mellitus with diabetic chronic kidney disease; N18.6 End stage renal disease; E11.42 Type 2 diabetes mellitus with diabetic polyneuropathy; I48.91 Unspecified atrial fibrillation; G43.909 Migraine, unspecified, not intractable, without status migrainosus; K21.9 Gastro-esophageal reflux disease without esophagitis; E66.01 Morbid (severe) obesity due to excess calories; E78.5 Hyperlipidemia, unspecified; G47.33 Obstructive sleep apnea (adult) (pediatric); E83.51 Hypocalcemia; E61.1 Iron deficiency; D63.1 Anemia in chronic kidney disease; E11.65 Type 2 diabetes mellitus with hyperglycemia; Z90.81 Acquired absence of spleen; Z68.41 Body mass index [BMI] 40.0-44.9, adult; Z99.2 Dependence on renal dialysis; Z87.891 Personal history of nicotine dependence; Z79.4 Long term (current) use of insulin
CPT/HCPCS: 36600; 70450; 71045; 71046; 71250; 74176; 77012; 80048; 80048 91; 80053; 80069; 80202; 82272; 82378; 82607; 82728; 82746; 82948; 83090 90; 83540; 83615; 83880; 83883 90; 83921 90; 84075; 84100; 84165; 84166; 84450; 84460; 84466; 84484; 85025; 85025 91; 85027; 85610; 85730; 86850; 86870; 86900; 86901; 86920; 87040; 87641; 88305; 88307; 88341 TC; 88342 TC; 93005; 94002; 94799; 97530 GP; J0131; J0690; J0881; J1100; J1170; J1644; J1815; J2310; J2405; J2543; J2795; J3010; J3370; J3420; J3430; J7050; P9016; P9017; P9045

== ENCOUNTER 2017-12-09 09:06 | Observation (INO) | payer OTHER ==
[~2017-12-09] VITALS: Ht 175.3 cm; Wt 119.2 kg
[~2017-12-09 09:06] MED LIST changes: +AMLODIPINE BES2.5 MG PO; +DOCUSATE SODIU100 MG PO
[2017-12-09 10:12] LABS: HEMATOCRIT 32.1 % (38.0-50.0); MCH 27.1 PG (29.0-34.0); MCHC 31.2 G/DL (30.0-36.0); RBC DIS.WIDTH-CV 20.3 % (11.8-14.6); RBC DIS.WIDTH-SD 61.8 % (39-53); RED BLOOD COUNT 3.69 M/uL (4.00-5.50); WHITE BLOOD COUNT 13.8 K/uL (4.1-10.2)
[2017-12-09 10:24] LABS: ALBUMIN 2.7 g/dL (3.2-4.8); CHLORIDE 93 mEq/L (99-109); SODIUM 136 mEq/L (136-147)
[2017-12-09 10:27] LABS: GLUCOSE 73 mg/dL (70-99); POTASSIUM 3.9 mEq/L (3.7-5.4); TOTAL PROTEIN 7.8 g/dL (6.4-8.3)
[2017-12-09 10:29] LABS: TOTAL BILIRUBIN 0.7 mg/dL (0.0-1.0)
[2017-12-09 10:30] LABS: ALKALINE PHOSPHATASE 264 IU/L (3-129); CREATININE 3.8 mg/dL (0.6-1.3); GFR ESTIMATE (CALCULATED) 17 mL/min/ (58.99-99999)
[2017-12-09 10:31] LABS: UREA NITROGEN (BUN) 28 mg/dL (9-23)
[2017-12-09 10:32] LABS: AST (GOT) 40 IU/L (2-34)
[2017-12-09 10:33] LABS: ALT (GPT) 9 IU/L (3-49)
[2017-12-09 10:52] LABS: PLAT.SUFFICIENCY ADEQUATE; PLATELET COUNT 395 K/uL (156-360)
[2017-12-09] MEDS ORDERED: SERTRALINE HCL100 MG PO (12:56)
[2017-12-09] MEDS ORDERED: FERROUS SULFAT325 MG PO (13:40)
[2017-12-09] MEDS ORDERED: GLUCAGON1 MG IM (15:43)
[2017-12-09 16:15] VITALS: BP 161/81
[2017-12-09 19:00] VITALS: BP 160/51
[2017-12-09 23:24] VITALS: BP 137/61
[2017-12-10 03:44] VITALS: BP 130/57
[2017-12-10 07:33] VITALS: BP 145/70
[2017-12-10 11:54] VITALS: BP 124/50
[2017-12-10 16:19] VITALS: BP 135/62
[2017-12-10 20:49] VITALS: BP 161/77
[2017-12-10 23:16] VITALS: BP 147/69
[2017-12-11 04:36] VITALS: BP 137/70
[2017-12-11 08:11] LABS: BASOPHIL (%) 1.5 % (0-1); BASOPHIL COUNT 0.2 K/uL (0-0.1); EOSINOPHIL (%) 5.1 % (0-5); EOSINOPHIL COUNT 0.5 K/uL (0-0.3); HEMATOCRIT 27.2 % (38.0-50.0); HEMOGLOBIN 8.7 G/DL (12.5-16.6); IMMATURE GRANULOCYTE (%) 0.4 % (0.0-0.7); LYMPHOCYTE (%) 13.6 % (15-42); LYMPHOCYTE COUNT 1.5 K/uL (1.0-2.8); MCH 27.3 PG (29.0-34.0); MCV 85.3 FL (86-99); MONOCYTE (%) 15.4 % (3-12); MONOCYTE COUNT 1.6 K/uL (0-0.8); NEUTROPHIL COUNT 6.8 K/uL (1.8-6.4); PLATELET COUNT 384 K/uL (156-360); RBC DIS.WIDTH-CV 19.1 % (11.8-14.6); RBC DIS.WIDTH-SD 59.4 % (39-53); RED BLOOD COUNT 3.19 M/uL (4.00-5.50); WHITE BLOOD COUNT 10.6 K/uL (4.1-10.2)
[2017-12-11 08:41] LABS: ALBUMIN 2.7 G/DL (3.2-4.8); ALKALINE PHOSPHATASE 183 IU/L (3-129); ALT (GPT) 8 IU/L (3-49); AST (GOT) 28 IU/L (2-34); CHLORIDE 93 MEQ/L (99-109); SODIUM 133 MEQ/L (136-147); VANCOMYCIN, TROUGH 20.2 MCG/ML (10-20)
[2017-12-11 08:43] LABS: GFR ESTIMATE (CALCULATED) 10 mL/min/ (58.99-99999); GLUCOSE 144 mg/dL (70-99); POTASSIUM 4.9 MEQ/L (3.7-5.4); TOTAL BILIRUBIN 0.5 MG/DL (0.0-1.0); TOTAL PROTEIN 7.1 G/DL (6.4-8.3); UREA NITROGEN (BUN) 50 mg/dL (9-23)
[2017-12-11 12:53] VITALS: BP 144/98
[2017-12-11 17:14] VITALS: BP 154/78
== END 2017-12-11 17:29 ==
LOC: EME 09:06 → 4EAST 12:45 → EDOF 12:45 → ENRESERV 12:51 → 4EAST 15:58 → ENRESERV 17:52 → CANRESERV 17:52 → ENPENDDIS 12-11 → 4EAST 12-11 14:03
PROVIDERS: Family Medicine; Internal Medicine
PROC: 5A1D70Z Performance of Urinary Filtration, Intermittent, Less than 6 Hours Per Day (ICD-10-PCS; principal; 2017-12-11)
DX: E11.649 Type 2 diabetes mellitus with hypoglycemia without coma (principal); E11.22 Type 2 diabetes mellitus with diabetic chronic kidney disease; I12.0 Hypertensive chronic kidney disease with stage 5 chronic kidney disease or end stage renal disease; N18.6 End stage renal disease; Z99.2 Dependence on renal dialysis; E11.69 Type 2 diabetes mellitus with other specified complication; A41.9 Sepsis, unspecified organism; M86.9 Osteomyelitis, unspecified; M32.9 Systemic lupus erythematosus, unspecified; C18.9 Malignant neoplasm of colon, unspecified; C78.7 Secondary malignant neoplasm of liver and intrahepatic bile duct; D63.1 Anemia in chronic kidney disease; Z89.511 Acquired absence of right leg below knee; Z87.891 Personal history of nicotine dependence; G47.33 Obstructive sleep apnea (adult) (pediatric); E78.5 Hyperlipidemia, unspecified; I48.91 Unspecified atrial fibrillation; G60.0 Hereditary motor and sensory neuropathy; Z87.01 Personal history of pneumonia (recurrent); Z79.4 Long term (current) use of insulin
CPT/HCPCS: 70450; 80048; 80048 91; 80053; 80202; 81003; 82140; 82948; 83605; 85025; 85027; 87040; 94799; 99281; 99285; G0257; G0378; J1644; J1815; J2310; J2543; J3370; J7050